=== PATIENT | female | born 1940 | race Caucasian/White ===

== ENCOUNTER 2018-09-30 14:22 | Inpatient (IN) | payer MEDICARE, BC ==
[2018-09-30 14:50] LABS: Hemoglobin 12.2 g/dL (12.0-16.0); Mean Corpuscular HGB CONC 33.1 g/dL (32.0-36.0); Mean Corpuscular Volume 87.7 fL (78.0-98.0); Mean Platelet Volume 8.9 fL (7.4-10.4); Platelet Count 258 thou/uL (130-400); RBC Distribution Width 12.2 % (11.5-14.5); White Blood Cell (WBC) Count 12.9 thou/uL (4.8-10.8)
[2018-09-30 15:02] LABS: ALT (SGPT) 31 U/L (8-55); AST (SGOT) 53 U/L (5-34); Albumin 3.6 g/dL (3.4-4.8); Alkaline Phosphatase 71 U/L (40-150); Anion Gap 17 mmol/L (10-20); BUN (Urea Nitrogen) 18 mg/dL (9.8-20.1); Bilirubin, Total 0.5 mg/dL (0.2-1.2); Calc. Creatinine Clearance 0 mL/min (70-130); Calcium 9.9 mg/dL (7.8-10.44); Carbon Dioxide 17 mmol/L (23-31); Chloride 106 mmol/L (98-107); Estimated GFR-MDRD 35; Globulin 4.4 g/dL (2.4-3.5); Glucose 140 mg/dL (83-110); Potassium 3.6 mmol/L (3.5-5.1); Sodium 136 mmol/L (136-145)
[2018-09-30 15:09] LABS: Bilirubin Small (Negative); Blood, Urine Large (Negative); Glucose, Urine (Dipstick) Negative (Negative); Leukocyte Trace (Negative); Nitrite Negative (Negative); Protein, Urine (Dipstick) > or equal to 300 mg/dL (Neg-Trace); Urobilinogen 0.2 mg/dL (0.2-1.0)
[2018-09-30 15:10] LABS: Clarity Hazy (Clear); Specific Gravity, Urine 1.026 (1.002-1.036)
[2018-09-30 15:17] LABS: Bacteria/HPF 2+ HPF (None Seen)
[2018-09-30 15:20] LABS: Band 4 % (5-11); Lymphocytes 4 % (21-51); MDiff Complete? YES; Monocytes 2 % (0-10); Neutrophil 90 % (42-75)
[2018-09-30 15:21] LABS: PLT Morphology Comment Appears Adequate; RBC Morphology Normal
--- NOTE | 2018-09-30 15:33 | RAD ---
CHEST 1 VIEW: Date: 09/30/18 INDICATION: Fever. COMPARISON: None. FINDINGS: Lungs are clear. Cardiomediastinal silhouette is within normal limits. No acute osseous abnormality i s evident. IMPRESSION: No acute abnormality. POS: [facility]
[2018-09-30] MEDS ORDERED: Cefepime 2 GM VIAL ONE (15:39)
[2018-09-30] MEDS ORDERED: Sodium Chloride 0.9% 100 ML ONE (15:39)
[2018-09-30] MEDS ORDERED: Acetaminophen 500 MG TAB ONE (16:59)
[2018-09-30 18:09] LABS: Lactic Acid 0.7 mmol/L (0.5-2.2)
[2018-09-30] MEDS ORDERED: Acetaminophen 325 MG TAB PO PRN (18:35)
[2018-09-30] MEDS: Sodium Chloride 0.9% 1,000 ML IV SCH (21:03)
[2018-10-01] MEDS ORDERED: Acetaminophen 325 MG TAB PO PRN (01:25)
[2018-10-01] MEDS ORDERED: Ondansetron ODT 4 MG TAB PO PRN (01:25)
[2018-10-01] MEDS ORDERED: Zolpidem Tartrate 5 MG TAB PO PRN (01:28)
[2018-10-01] MEDS ORDERED: Senokot S 8.6-50 MG TAB PO PRN (01:28)
[2018-10-01] MEDS ORDERED: Bisacodyl 5 MG TAB PO PRN (01:28)
[2018-10-01] MEDS ORDERED: Guaifenesin DM 100-10/5 ML UDCUP PO PRN (01:28)
[2018-10-01] MEDS ORDERED: Calcium Carbonate 500 MG ChewTAB PO PRN (01:28)
[2018-10-01] MEDS: Sodium Chloride 0.9% 1,000 ML IV SCH ×3 (02:38→13:11)
[2018-10-01] MEDS ORDERED: Cefepime 2 GM in Sodium Chloride 0.9% 100 ML IVPB SCH (03:30)
[2018-10-01] MEDS: Aztreonam 1 GM in Sodium Chloride 0.9% 100 ML IVPB SCH ×2 (04:25→13:25)
[2018-10-01 04:55] LABS: Anion Gap 15 mmol/L (10-20); BUN (Urea Nitrogen) 20 mg/dL (9.8-20.1); BUN/Creatinine Ratio 15.04; Calc. Creatinine Clearance 38 mL/min (70-130); Calcium 8.3 mg/dL (7.8-10.44); Carbon Dioxide 13 mmol/L (23-31); Chloride 113 mmol/L (98-107); Estimated GFR-MDRD 38; Glucose 93 mg/dL (83-110); Potassium 3.7 mmol/L (3.5-5.1); Sodium 137 mmol/L (136-145)
[2018-10-01 05:09] LABS: Phosphorus 1.6 mg/dL (2.3-4.7)
[2018-10-01 05:36] LABS: Band 26 % (5-11); Hemoglobin 11.4 g/dL (12.0-16.0); Lymphocytes 2 % (21-51); MDiff Complete? YES; Mean Corpuscular HGB CONC 32.5 g/dL (32.0-36.0); Mean Corpuscular Hemoglobin 30.8 pg (27.0-31.0); Mean Corpuscular Volume 94.8 fL (78.0-98.0); Mean Platelet Volume 9.6 fL (7.4-10.4); Metamyelocyte 2 % (0-0); Monocytes 2 % (0-10); Neutrophil 68 % (42-75); PLT Morphology Comment Appears Adequate; Platelet Count 235 thou/uL (130-400); RBC Distribution Width 12.6 % (11.5-14.5); RBC Morphology Normal; Vacuoles SLIGHT; White Blood Cell (WBC) Count 10.8 thou/uL (4.8-10.8)
[2018-10-01] MEDS ORDERED: Sodium Phosphate 15 MMOL in Sodium Chloride 0.9% 250 ML 250 ML IVPB SCH ×2 (06:00→06:45)
[2018-10-01] MEDS ORDERED: hydrALAZINE 20 MG/ML VIAL SLOW IVP PRN (06:27)
[2018-10-01] MEDS ORDERED: Famotidine/PF 20 mg/2ml Vial SLOW IVP SCH (09:00)
[2018-10-01] MEDS ORDERED: Non-Formulary Item 1 EACH (Desvenlafaxine Succinate [Pristiq] 100 MG) PO SCH (09:00)
[2018-10-01] MEDS: Fenofibrate Nanocrystallized 145 MG TAB PO SCH (09:12)
[2018-10-01] MEDS: Multivitamin W/ Minerals 1 TAB PO SCH (09:13)
[2018-10-01] MEDS: Venlafaxine HCl XR 150 MG CAP PO SCH (09:13)
[2018-10-01] MEDS: Famotidine 20 MG TAB PO SCH (09:13)
[2018-10-01] MEDS: Enoxaparin Sodium 40 MG/0.4 ML SYRINGE SC SCH (09:14)
[2018-10-01] MEDS: Calcium Carbonate 600 MG TAB PO SCH (09:17)
--- NOTE | 2018-10-01 12:53 | PDOC.PN ---
- Subjective Encounter Start Date: 10/01/18 Encounter Start Time: 07:40 Subjective: no abd pain or nausea or vomiting -: feels better, no chest pain - Objective Resuscitation Status - Order Detail: 10/01/18 01:28 Resuscitation Status Routine Resuscitation Status: FULL: Full Resuscitation MAR Reviewed: Yes Vital Signs & Weight: Vital Signs (12 hours) Temp Pulse Resp BP Pulse Ox 10/01/18 08:00 98 10/01/18 07:18 99.7 F H 102 H 16 139/68 95 10/01/18 04:00 100.6 F H 72 20 152/57 H 97 10/01/18 01:28 97 Weight Weight 155 lb 3.2 oz I&O: 09/30/18 10/01/18 10/02/18 06:59 06:59 06:59 Intake Total 1320 828 Output Total 2 Balance 1318 828 Result Diagrams: 10/01/18 03:53 10/01/18 03:53 Phys Exam - Physical Examination HEENT: PERRLA, moist MMs Neck: no JVD, supple Respiratory: no wheezing, no rales Cardiovascular: RRR, no significant murmur Gastrointestinal: soft, non-tender, positive bowel sounds Musculoskeletal: no edema, pulses present Neurological: non-focal, moves all 4 limbs Psychiatric: normal affect, A&O x 3 Dx/Plan (1) Sepsis Code(s): A41.9 - SEPSIS, UNSPECIFIED ORGANISM Status: Acute Qualifiers: Sepsis type: sepsis due to unspecified organism Qualified Code(s): A41.9 - Sepsis, unspecified organism (2) UTI (urinary tract infection) Status: Acute Qualifiers: Urinary tract infection type: acute cystitis Hematuria presence: without hematuria Qualified Code(s): N30.00 - Acute cystitis without hematuria (3) HTN (hypertension) Code(s): I10 - ESSENTIAL (PRIMARY) HYPERTENSION Status: Chronic Qualifiers: Hypertension type: essential hypertension Qualified Code(s): I10 - Essential (primary) hypertension (4) Dyslipidemia Code(s): E78.5 - HYPERLIPIDEMIA, UNSPECIFIED Status: Chronic - Plan hemostable -: on aztreonam, will obtain [facility] -: decrease iv fluids, encourage po intake -: on asp, tricor -: to amb as tolerated * . Review of Systems - Medications/Allergies Allergies/Adverse Reactions: Allergies Allergy/AdvReac Type Severity Reaction Status Date / Time Penicillins Allergy Verified 09/30/18 19:54 Medications: Current Medications Acetaminophen (Tylenol) 325 mg PO DAILYPRN PRN PRN Reason: Headache Last Admin: 10/01/18 05:56 Dose: 325 mg Aspirin (Aspirin Chewable) 81 mg PO DAILY [facility] Last Admin: 10/01/18 09:13 Dose: 81 mg Bisacodyl (Dulcolax) 10 mg PO DAILYPRN PRN PRN Reason: Constipation Calcium Carbonate (Caltrate) 600 mg PO DAILY [facility] Last Admin: 10/01/18 09:17 Dose: 600 mg Calcium Carbonate (Tums) 1,000 mg PO Q4H PRN PRN Reason: Heartburn or Indigestion Enoxaparin Sodium (Lovenox) 40 mg SC 09 [facility] Last Admin: 10/01/18 09:14 Dose: 40 mg Famotidine (Pepcid) 20 mg SLOW IVP DAILY [facility] Last Admin: 10/01/18 09:17 Dose: Not Given Famotidine (Pepcid) 20 mg PO DAILY [facility] Last Admin: 10/01/18 09:13 Dose: 20 mg Fenofibrate (Tricor) 145 mg PO DAILY [facility] Last Admin: 10/01/18 09:12 Dose: 145 mg Guaifenesin/Dextromethorphan (Robitussin Dm) 15 ml PO Q4H PRN PRN Reason: Cough Hydralazine HCl (Apresoline) 10 mg SLOW IVP Q4H PRN PRN Reason: SBP>160 Sodium Chloride (Normal Saline 0.9%) 1,000 mls @ 80 mls/hr IV .[id number] [facility] Last Admin: 10/01/18 04:25 Dose: 1,000 mls Aztreonam 1 gm/ Sodium (Chloride) 100 mls @ 200 mls/hr IVPB 0400,1200,2000 [facility] Last Admin: 10/01/18 04:25 Dose: 100 mls Iron/Minerals/Multivitamins (Theragran M) 1 tab PO DAILY [facility] Last Admin: 10/01/18 09:13 Dose: 1 tab Miscellaneous Medication (Pharmacy To Dose) 0 each IVPB PRN PRN PRN Reason: AZACTAM Pharmacy to Dose Ondansetron HCl (Zofran Odt) 4 mg PO Q6H PRN PRN Reason: Nausea Senna/Docusate Sodium (Senokot S) 2 tab PO BIDPRN PRN PRN Reason: Constipation Sodium Chloride (Flush - Normal Saline) 10 ml IVF Q12HR [facility] Last Admin: 10/01/18 09:17 Dose: Not Given Sodium Chloride (Flush - Normal Saline) 10 ml IVF PRN PRN PRN Reason: Saline Flush Venlafaxine HCl (Effexor Xr) 150 mg PO DAILY [facility] Last Admin: 10/01/18 09:13 Dose: 150 mg Zolpidem Tartrate (Ambien) 5 mg PO HSPRN PRN PRN Reason: Insomnia
[2018-10-01] MEDS ORDERED: Furosemide 40 MG/4 ML VIAL SLOW IVP SCH (13:15)
--- NOTE | 2018-10-01 13:56 | RAD ---
CHEST ONE VIEW: INDICATIONS: Shortness of breath. COMPARISON: 09/30/2018 FINDINGS: There is worsening interstitial prominence involving both lungs. Heart size is normal. No pleural e ffusion or pneumothorax is evident. No acute osseous abnormality is evident. IMPRESSION: Interval development of worsening interstitial prominence throughout both lungs. This can be seen wi th bronchiolitis or atypical infectious process. Recommend correlation. No consolidation, pleural e ffusion, or pneumothorax is evident. POS: [facility]
[2018-10-01] MEDS ORDERED: cefTRIAXone\\ROCEPHIN 1 GM in Sodium Chloride 0.9% 100 ML IVPB SCH (16:00)
[2018-10-01] MEDS ORDERED: Iopamidol 370 76% 100 ML VIAL ONE (16:41)
[2018-10-01] MEDS ORDERED: Azithromycin 500 MG in Sodium Chloride 0.9% 250 ML 250 ML IVPB SCH (17:00)
[2018-10-01] MEDS: Lorazepam 2 MG/ML VIAL SLOW IVP PRN (17:08)
[2018-10-01 19:02] LABS: Hemoglobin 10.9 g/dL (12.0-16.0); Mean Corpuscular HGB CONC 33.8 g/dL (32.0-36.0); Mean Corpuscular Hemoglobin 30.7 pg (27.0-31.0); Mean Corpuscular Volume 90.9 fL (78.0-98.0); Mean Platelet Volume 8.7 fL (7.4-10.4); Platelet Count 226 thou/uL (130-400); RBC Distribution Width 12.6 % (11.5-14.5); Red Blood Cell (RBC) Count 3.55 mill/uL (4.20-5.40); White Blood Cell (WBC) Count 9.2 thou/uL (4.8-10.8)
[2018-10-01] MEDS: Acetaminophen 1,000 MG in Premix Bag 1 BAG IVPB PRN (19:12)
[2018-10-01 19:16] LABS: Band 29 % (5-11); Lymphocytes 4 % (21-51); MDiff Complete? YES; Monocytes 1 % (0-10); Neutrophil 66 % (42-75); PLT Morphology Comment Appears Adequate; Polychromasia SLIGHT = 2-3 cells (100X) (0-2/hpf)
[2018-10-01 19:18] LABS: ALT (SGPT) 71 U/L (8-55); AST (SGOT) 139 U/L (5-34); Albumin 2.9 g/dL (3.4-4.8); Alkaline Phosphatase 80 U/L (40-150); Anion Gap 13 mmol/L (10-20); BUN (Urea Nitrogen) 17 mg/dL (9.8-20.1); Bilirubin, Total 0.3 mg/dL (0.2-1.2); Calc. Creatinine Clearance 38 mL/min (70-130); Calcium 8.2 mg/dL (7.8-10.44); Carbon Dioxide 19 mmol/L (23-31); Chloride 107 mmol/L (98-107); Estimated GFR-MDRD 38; Globulin 3.7 g/dL (2.4-3.5); Glucose 96 mg/dL (83-110); Protein, Total 6.6 g/dL (6.0-8.3); Sodium 136 mmol/L (136-145)
[2018-10-01 19:29] LABS: Potassium 2.5 mmol/L (3.5-5.1)
[2018-10-01] MEDS ORDERED: Magnesium 2 GM/50 ML 2 GM in Premix Bag 1 BAG IVPB PRN (19:58)
[2018-10-01] MEDS ORDERED: Vancomycin HCl 1 GM in Premix Bag 1 BAG IVPB SCH (20:00)
[2018-10-01] MEDS ORDERED: Potassium Chloride 40 MEQ in Sodium Chloride 0.9% 500 ML IVPB SCH (20:15)
[2018-10-01] MEDS ORDERED: Potassium Chloride 10 MEQ TAB PO SCH (20:15)
[2018-10-01] MEDS: Diltiazem 125 MG in Sodium Chloride 0.9% 100 ML IVPB SCH (20:24)
--- NOTE | 2018-10-01 21:37 | CT ---
CTA CHEST WITH CONTRAST: History: Irregular breathing, atrial fibrillation. Technique: Multiple contiguous axial images were obtained in a CTA of the chest with contrast perform ed with pulmonary embolism protocol. 3D oblique MIP reformats and direct coronal reformats were perfo rmed. FINDINGS: The pulmonary arteries are well opacified without filling defects to suggest pulmonary emboli. The he art is slightly enlarged without focal cardiac abnormality. No hilar or mediastinal lymphadenopathy i s seen. There is a small right pleural effusion. A trace left pleural effusion is seen. Adjacent atelectasis is seen bilaterally. No focal infiltrates or masses are seen in the lungs. No pneumothorax is seen. The chest wall soft tissues are unremarkable. Mild degenerative changes are seen in the spine. There is a hypodensity in the right lobe of the liver measuring 3.1 cm in size which may represent a cyst. IMPRESSION: 1. No evidence of pulmonary thromboembolism. 2. Right pleural effusion. POS: [facility]
[2018-10-01] MEDS: Cefepime 1 GM in Sodium Chloride 0.9% 100 ML IVPB SCH (21:52)
[2018-10-01] MEDS ORDERED: Digoxin 0.5 MG/2 ML AMP SLOW IVP SCH (22:00)
[2018-10-02] MEDS: Acetaminophen 1,000 MG in Premix Bag 1 BAG IVPB PRN (00:28)
[2018-10-02] MEDS ORDERED: Digoxin 0.5 MG/2 ML AMP SLOW IVP SCH ×2 (04:00→12:30)
[2018-10-02 06:02] LABS: ALT (SGPT) 81 U/L (8-55); AST (SGOT) 179 U/L (5-34); Alkaline Phosphatase 95 U/L (40-150); Anion Gap 16 mmol/L (10-20); BUN (Urea Nitrogen) 20 mg/dL (9.8-20.1); Bilirubin, Total 0.4 mg/dL (0.2-1.2); Calc. Creatinine Clearance 34 mL/min (70-130); Calcium 8.3 mg/dL (7.8-10.44); Carbon Dioxide 14 mmol/L (23-31); Chloride 110 mmol/L (98-107); Estimated GFR-MDRD 34; Globulin 3.7 g/dL (2.4-3.5); Magnesium 1.9 mg/dL (1.6-2.6); Potassium 3.3 mmol/L (3.5-5.1); Protein, Total 6.7 g/dL (6.0-8.3); Sodium 137 mmol/L (136-145)
[2018-10-02 06:07] LABS: Hemoglobin 11.9 g/dL (12.0-16.0); MDiff Complete? YES; Mean Corpuscular HGB CONC 30.8 g/dL (32.0-36.0); Mean Corpuscular Hemoglobin 28.8 pg (27.0-31.0); Mean Corpuscular Volume 93.5 fL (78.0-98.0); Mean Platelet Volume 9.5 fL (7.4-10.4); Platelet Count 227 thou/uL (130-400); Red Blood Cell (RBC) Count 4.14 mill/uL (4.20-5.40); White Blood Cell (WBC) Count 4.7 thou/uL (4.8-10.8)
[2018-10-02 06:08] LABS: Band 33 % (5-11); Monocytes 2 % (0-10); Neutrophil 65 % (42-75); PLT Morphology Comment Appears Adequate
[2018-10-02 06:09] LABS: Glucose 57 mg/dL (83-110)
[2018-10-02] MEDS ORDERED: Dextrose 50% Abboject 50 ML SYRINGE ONE (06:12)
--- NOTE | 2018-10-02 07:48 | HP ---
CHIEF COMPLAINT: Fever. HISTORY OF PRESENT ILLNESS: This is a 78-year-old female with past medical history of hyperlipidemia, who is presenting with fever. The patient was recently hospitalized two days ago at [facility]. During her admission, the patient was given IV antibiotics especially Levaquin and the patient was discharged yesterday to home; now the patient is presenting to our hospital with a fever of 102.1. Per the patient, she has been taking acetaminophen for fever control and the patient is also having associated symptoms of urinary urgency, episode of vomiting, malaise. The patient at this time denies any chills, dizziness, headaches, chest pain, palpitation, hematuria, dysuria, hematochezia, melena, constipation, diarrhea. The patient also denies shortness of breath or cough. REVIEW OF SYSTEMS: The patient reports fever, vomiting, urinary urgency. Otherwise, as documented in the HPI, all other systems were reviewed and are negative. PAST MEDICAL HISTORY: Hyperlipidemia. PAST SURGICAL HISTORY: Appendectomy and hysterectomy. FAMILY HISTORY: Reviewed and noncontributory. PSYCHIATRIC HISTORY: Anxiety. SOCIAL HISTORY: The patient denies any illicit drug use, any alcohol use, or any smoking history. ALLERGIES: SHE IS ALLERGIC TO PENICILLIN. CURRENT MEDICATIONS: 1. Pristiq 100 mg. 2. TriCor 145 mg. 3. Multivitamins. 4. Aspirin. 5. Levaquin 750. 6. Zofran. 7. Tylenol. PHYSICAL EXAMINATION: VITAL SIGNS: The patient's blood pressure is 146/58, pulse of 101, respiratory rate of 26, temperature of 100.1. GENERAL: The patient is lying in bed and does not appear to be in any distress. HEENT: Normocephalic and atraumatic. Pupils are equal, round, and reactive to light. Extraocular movements are intact. No scleral icterus. No conjunctival pallor. Mucous membranes are dry. NECK: Trachea is midline. No JVD. Full range of motion. LUNGS: Clear to auscultation bilaterally. No wheezes, no rales, no rhonchi appreciated. CARDIOVASCULAR: Positive S1 and S2. The patient is tachycardic. ABDOMEN: Soft, nontender, nondistended. EXTREMITIES: 5/5 upper extremity strength and good pulses bilaterally bilateral lower extremities. No edema noted. NEUROLOGIC: Cranial nerves 2 through 12 grossly intact. SKIN: Warm, dry, and intact. PSYCHIATRIC: Normal affect. DIAGNOSTIC STUDIES: EKG shows sinus tachycardia with a rate of 107. Chest x-ray, no acute cardiopulmonary process. The chest x-ray showed no acute abnormality. Labs; WBC is 12.9, hemoglobin of 12.2, hematocrit of 36.8, platelet count is 258, neutrophils of . Sodium is 136, potassium is 3.6, chloride is 106, carbon dioxide of 17, BUN is 18, creatinine is 1.46. GFR is 35. Glucose is . Lactic acid is 2.3. AST is 53, ALT is 31. Urinalysis is positive for leukocyte esterase. ASSESSMENT AND PLAN: This is a 78-year-old female, being admitted for: 1. Sepsis secondary to urinary tract infection. At this point, the patient has been started on antibiotics. We are going to continue the patient on antibiotics and IV fluids. The patient has been admitted to the [facility] since the patient is appearing. We will continue acetaminophen p.r.n. for fever and pain. We will follow up on cultures. 2. Acute kidney injury, most likely due to dehydration. The patient's creatinine is at this point 1.46. We will continue her on gentle hydration and we will follow up on morning BMP. 3. Lactic acidosis. We will continue the patient on IV fluids and we will trend lactic acid. 4. Deep venous thrombosis and gastrointestinal prophylaxis. Job ID: [id number]
[2018-10-02] MEDS: Famotidine 20 MG TAB PO SCH (08:28)
[2018-10-02] MEDS: Enoxaparin Sodium 40 MG/0.4 ML SYRINGE SC SCH (08:30)
[2018-10-02] MEDS: Cefepime 1 GM in Sodium Chloride 0.9% 100 ML IVPB SCH ×2 (08:37→23:15)
[2018-10-02] MEDS ORDERED: Metoprolol Tartrate 5 MG/5 ML VIAL IVP PRN (09:04)
[2018-10-02] MEDS ORDERED: Diltiazem 125 MG in Sodium Chloride 0.9% 100 ML IVPB SCH ×2 (09:15→12:18)
[2018-10-02] MEDS: Diltiazem 125 MG in Sodium Chloride 0.9% 100 ML IVPB SCH (09:53)
[2018-10-02] MEDS: Multivitamin W/ Minerals 1 TAB PO SCH (11:20)
[2018-10-02] MEDS: Venlafaxine HCl XR 150 MG CAP PO SCH (11:20)
[2018-10-02] MEDS: Fenofibrate Nanocrystallized 145 MG TAB PO SCH (11:20)
[2018-10-02] MEDS: Calcium Carbonate 600 MG TAB PO SCH (11:20)
[2018-10-02] MEDS ORDERED: Dextrose 5 % And 0.9 % NaCl 1,000 ML IV SCH (12:15)
--- NOTE | 2018-10-02 12:23 | PDOC.PN ---
- Subjective Encounter Start Date: 10/02/18 Encounter Start Time: 07:30 Subjective: no sob, is getting echo done -: has afib with rvr in the 130's now - Objective Resuscitation Status - Order Detail: 10/01/18 01:28 Resuscitation Status Routine Resuscitation Status: FULL: Full Resuscitation MAR Reviewed: Yes Vital Signs & Weight: Vital Signs (12 hours) Temp Pulse Resp BP Pulse Ox 10/02/18 11:04 98.7 F 140 H 16 102/71 97 10/02/18 08:00 98 10/02/18 07:29 99.5 F 138 H 20 119/54 L 98 10/02/18 06:14 139 H 10/02/18 03:51 98.8 F 153 H 24 H 112/57 L 99 10/02/18 02:03 99.7 F H 155 H 118/48 L 99 10/02/18 00:28 142 H Weight Weight 155 lb 3.2 oz I&O: 10/01/18 10/02/18 10/03/18 06:59 06:59 06:59 Intake Total 1320 2188 Output Total 2 Balance 1318 2188 Result Diagrams: 10/02/18 05:02 10/02/18 05:02 Additional Labs: Accuchecks 10/02/18 07:15 POC Glucose 71 Phys Exam - Physical Examination HEENT: PERRLA, sclera anicteric Neck: no JVD, supple Respiratory: no wheezing rales+ Cardiovascular: no significant murmur, irregular Gastrointestinal: soft, non-tender, positive bowel sounds Musculoskeletal: no edema, pulses present Neurological: non-focal, moves all 4 limbs Dx/Plan (1) Atrial fibrillation with RVR Code(s): I48.91 - UNSPECIFIED ATRIAL FIBRILLATION Status: Acute (2) Sepsis Code(s): A41.9 - SEPSIS, UNSPECIFIED ORGANISM Status: Acute Qualifiers: Sepsis type: sepsis due to unspecified organism Qualified Code(s): A41.9 - Sepsis, unspecified organism (3) UTI (urinary tract infection) Status: Acute Qualifiers: Urinary tract infection type: acute cystitis Hematuria presence: without hematuria Qualified Code(s): N30.00 - Acute cystitis without hematuria (4) HTN (hypertension) Code(s): I10 - ESSENTIAL (PRIMARY) HYPERTENSION Status: Chronic Qualifiers: Hypertension type: essential hypertension Qualified Code(s): I10 - Essential (primary) hypertension (5) Dyslipidemia Code(s): E78.5 - HYPERLIPIDEMIA, UNSPECIFIED Status: Chronic - Plan cardizem drip at 5mg/hr, lopressor prn -: iv hydration with dextrose for hypoglycemia -: on cefepime and vanc -: await cultures, to obtain urine cs results from physicians center -: cardio consult, await echo results * . Review of Systems - Medications/Allergies Allergies/Adverse Reactions: Allergies Allergy/AdvReac Type Severity Reaction Status Date / Time Penicillins Allergy Verified 09/30/18 19:54 Medications: Current Medications Acetaminophen (Tylenol) 325 mg PO DAILYPRN PRN PRN Reason: Headache Last Admin: 10/01/18 05:56 Dose: 325 mg Aspirin (Aspirin Chewable) 81 mg PO DAILY [facility] Last Admin: 10/02/18 08:28 Dose: 81 mg Bisacodyl (Dulcolax) 10 mg PO DAILYPRN PRN PRN Reason: Constipation Calcium Carbonate (Caltrate) 600 mg PO DAILY [facility] Last Admin: 10/02/18 11:20 Dose: Not Given Calcium Carbonate (Tums) 1,000 mg PO Q4H PRN PRN Reason: Heartburn or Indigestion Digoxin (Lanoxin) 0.25 mg SLOW IVP DAILY [facility] Digoxin (Lanoxin) 0.25 mg SLOW IVP NOW [facility] Stop: 10/02/18 14:30 Enoxaparin Sodium (Lovenox) 40 mg SC 0900 [facility] Last Admin: 10/02/18 08:30 Dose: 40 mg Famotidine (Pepcid) 20 mg PO DAILY [facility] Last Admin: 10/02/18 08:28 Dose: 20 mg Fenofibrate (Tricor) 145 mg PO DAILY [facility] Last Admin: 10/02/18 11:20 Dose: Not Given Guaifenesin/Dextromethorphan (Robitussin Dm) 15 ml PO Q4H PRN PRN Reason: Cough Hydralazine HCl (Apresoline) 10 mg SLOW IVP Q4H PRN PRN Reason: SBP>160 Acetaminophen 1,000 mg/ Device 100 mls @ 400 mls/hr IVPB Q6H PRN PRN Reason: Fever/Mild Pain Stop: 10/02/18 18:33 Last Admin: 10/02/18 00:28 Dose: 100 mls Cefepime HCl 1 gm/ Sodium (Chloride) 100 mls @ 200 mls/hr IVPB Q12HR [facility] Last Admin: 10/02/18 08:37 Dose: 100 mls Vancomycin HCl 1 gm/ Device 200 mls @ 200 mls/hr IVPB 2000 [facility] Last Admin: 10/01/18 20:39 Dose: 200 mls Magnesium Sulfate 2 gm/ Device 50 mls @ 100 mls/hr IVPB ONE PRN PRN Reason: Mg =<1.6 Stop: 10/08/18 19:59 Dextrose/Sodium Chloride (D5 0.9% Ns) 1,000 mls @ 75 mls/hr IV .[id number] [facility] Diltiazem HCl 125 mg/ Sodium (Chloride) 125 mls @ 7.5 mls/hr IVPB INF [facility]; Protocol Iron/Minerals/Multivitamins (Theragran M) 1 tab PO DAILY [facility] Last Admin: 10/02/18 11:20 Dose: Not Given Lorazepam (Ativan) 1 mg SLOW IVP Q4H PRN PRN Reason: Anxiety/Agitation Last Admin: 10/01/18 17:08 Dose: 1 mg Metoprolol Tartrate (Lopressor) 5 mg IVP Q6H PRN PRN Reason: for hr >140/min Last Admin: 10/02/18 09:24 Dose: 5 mg Miscellaneous Medication (Pharmacy To Dose) 0 each IVPB PRN PRN PRN Reason: AZACTAM Pharmacy to Dose Miscellaneous Medication (Pharmacy To Dose) 1 each IVPB PRN PRN PRN Reason: . Ondansetron HCl (Zofran Odt) 4 mg PO Q6H PRN PRN Reason: Nausea Senna/Docusate Sodium (Senokot S) 2 tab PO BIDPRN PRN PRN Reason: Constipation Sodium Chloride (Flush - Normal Saline) 10 ml IVF Q12HR [facility] Last Admin: 10/02/18 08:30 Dose: 10 ml Sodium Chloride (Flush - Normal Saline) 10 ml IVF PRN PRN PRN Reason: Saline Flush Last Admin: 10/02/18 09:26 Dose: 10 ml Venlafaxine HCl (Effexor Xr) 150 mg PO DAILY [facility] Last Admin: 10/02/18 11:20 Dose: Not Given Zolpidem Tartrate (Ambien) 5 mg PO HSPRN PRN PRN Reason: Insomnia
[2018-10-02] MEDS ORDERED: Iopamidol 370 76% 50 ML VIAL FS ONE (12:48)
[2018-10-02] MEDS ORDERED: Potassium Phosphate 30 MMOL in Sodium Chloride 0.9% 500 ML IVPB SCH (16:15)
--- NOTE | 2018-10-02 18:42 | CT ---
CT ABDOMEN NONCONTRAST CT PELVIS NONCONTRAST: (urolithiasis protocol) DATE: 10/02/2018 TIME: 5:34 p.m. HISTORY: A 78-year-old female with a urinary tract infection, metabolic acidosis, and abdominal pain. COMPARISON: None available. TECHNIQUE: IV injection of iodinated contrast media: none Oral contrast media: none FINDINGS: Other than for urolithiasis, the lack of IV and oral contrast limits the evaluation. There is a 13 x 8 x 7 mm calculus lodged at the left ureterovesical junction, causing mild-moderate d ilation of the left renal collecting system. There is also moderately severe fat stranding in the le ft renal sinus and around the left renal pelvis, consistent with either edema or extravasation of uri ne. There are additional multiple calculi in the left upper, mid, and lower pole calyces, including a clu ster of calculi in a left renal lower pole calyx. 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 There is IV contrast material in the dilated l eft renal collecting system, and a small amount in the contralateral right renal collecting system, f rom the CT angiogram of last night, 05/11/2018. There is no hydronephrosis in the right kidney. The re is IV contrast material in the urinary bladder. The bladder is otherwise unremarkable. Diverticu la at the sigmoid colon without acute diverticulitis. There are two low density lesions at the infer ior aspect of the right lobe of the liver. The largest of these two is at hepatic segment 5, measuri ng approximately 4 x 3.5 x 4 cm, with a density of 12 HU, probably a cyst. The other lesion is small er and located in hepatic segment 6. Cholecystectomy clips. No abdominal aortic aneurysm. No small bowel dilation. The spleen has a lobulated hilum and is mildly enlarged. No adrenal nodule. No gr oss pancreatic abnormality identified within the limits of a noncontrast scan. Small right pleural e ffusion. No small bowel dilation. No ascites or pneumoperitoneum. Absent uterus. IMPRESSION: 1. A 13 mm calculus lodged at the left ureteropelvic junction, causing left obstructive uropathy, wi th mild-moderate left hydronephrosis, and edema in the left renal sinus. 2. Small right pleural effusion. 3. Bilateral nephrolithiasis, left greater than right. 4. Status post cholecystectomy and hysterectomy. 5. Two lesions in the right lobe of the liver, probably hepatic cysts. 6. Mild splenomegaly. ALEXIS Limon POS: [facility]
[2018-10-02] MEDS ORDERED: Acetaminophen 325 MG TAB PO PRN (18:46)
[2018-10-02 19:15] LABS: INR-International Normal Ratio 1.7; Prothrombin Time 19.9 SEC (12.0-14.7)
[2018-10-02] MEDS ORDERED: Amiodarone 150 MG in Dextrose 5% in Water 100 ML IVPB SCH (19:15)
[2018-10-02] MEDS ORDERED: Amiodarone In Dextrose 200 ML IVPB SCH (19:15)
[2018-10-02 19:16] LABS: PTT 50.3 SEC (22.9-36.1)
[2018-10-02 19:18] LABS: Lactic Acid 1.3 mmol/L (0.5-2.2)
[2018-10-02 19:20] LABS: Vancomycin, Trough 9.2 ug/mL
[2018-10-02] MEDS ORDERED: Vancomycin HCl 1.5 GM in Sodium Chloride 0.9% 250 ML 300 ML IVPB SCH (20:00)
[2018-10-02] MEDS ORDERED: Sodium Bicarbonate 2.5 MEQ/5 ML VIAL ONE (20:07)
[2018-10-02] MEDS ORDERED: Fentanyl 100 MCG/2 ML VIAL ONE (20:07)
[2018-10-02] MEDS ORDERED: Midazolam HCl 2 mg/2 ml Vial ONE (20:07)
[2018-10-02] MEDS: Amiodarone 450 MG, Admixture Fee 1 EACH in Dextrose 5% in Water 250 ML IVPB SCH (20:18)
[2018-10-02] MEDS ORDERED: Enoxaparin Sodium 80 MG/0.8 ML SYRINGE SC SCH (21:00)
--- NOTE | 2018-10-02 21:24 | CON ---
DATE OF CONSULTATION: TYPE OF CONSULTATION: Cardiology. PRIMARY CARE PHYSICIAN: Dr. Aaron. PRIMARY SKI MOLDER: Dr. Mckeon. PRIMARY MANAGER MOBILITY: Dr. Jara. REFERRING PHYSICIAN: Dr. Pang. REASON FOR CARDIOLOGY CONSULT: New-onset atrial fibrillation, atrial fibrillation with RVR. HISTORY OF PRESENT ILLNESS: Mrs. Johnson is a very pleasant 78-year-old female with significant history of hyperlipidemia and history of UTI. On September 28, the patient started feeling not well. The patient saw the patient's primary care doctor the same day and the patient was admitted in the hospital over the night at the [facility] for possible urinary tract infection. The patient was discharged the next day on September 29. However, the patient did not feel well, so the patient's family took the patient to [facility] Tuesday night for further evaluation and treatment. The patient was at the [facility] and transferred to first floor and at that time, the patient started having heart rates up to 140, and she was found to have atrial fibrillation with RVR and at that time, the patient had no response. The patient's blood pressure was increased and the patient's heart rates increased also per patient's family. Today, prior to the episode, the patient's was at the bedside. He did not notice any other complaints such as chest pain, discomfort, shortness of breath, palpitations, flutter in her chest, dizziness, or lightheadedness. During initial Cardiology consult assessment, the patient denies any dizziness, lightheadedness, chest pain, discomfort, fluttering or palpitation in her chest or any other complaints, however, she is complaining of shortness of breath. According to family and patient's , she was never seen by a programming equipment operator or had a cardiac workup. However, the patient, according to , long time ago, she was told she has irregular heart rhythm. However, when she saw the programming equipment operator once, she was told she did not have any irregular heart rhythm. PAST MEDICAL HISTORY: Hyperlipidemia, mild rheumatoid arthritis, and anxiety. PAST SURGICAL HISTORY: Appendectomy, hysterectomy, bilateral cataract surgery, and right leg fracture. FAMILY HISTORY: Noncontributory at this moment. SOCIAL HISTORY: The patient is . The patient has 2 biological children, who lives well. The patient denies illicit drug or tobacco abuse. She drinks half glass of wine once a month. She used to walk 2 miles 5 times a week. She does not use a cane or walker. ALLERGIES: SHE IS ALLERGIC TO PENICILLIN. MEDICATIONS: Home mediations; 1. Tricor 145 mg once a day. 2. Zofran 4 mg once a day p.o. as needed. 3. Multivitamin one tablet once a day. 4. Levaquin 750 mg once a day. 5. Pristiq 100 mg once a day. 6. Calcium 600 mg once a day. 7. Aspirin 81 mg once a day. 8. Tylenol 325 mg as needed. REVIEW OF SYSTEMS: Negative unless otherwise mentioned in the history of present illness. According to , she was doing well prior to this event. PHYSICAL EXAMINATION: VITAL SIGNS: Blood pressure 102/71; pulses 130s to 140s, irregular, atrial flutter. At this moment, respiratory rate of 16, O2 sat 97% on room air, temperature 98.7. GENERAL: The patient is alert and oriented x4, mildly lethargic, breathing hard. HEENT: Normocephalic, atraumatic. Eyes, extraocular muscles are intact. ENT, mouth, oral, nasal mucosa moist without lesion. NECK: Supple. No JVD. Normal range of motion. LUNGS: Clear to auscultate. No wheezing, rales, or rhonchi noted. CARDIOVASCULAR: Irregularly irregular. No murmurs, heaves, or thrills noted. EXTREMITIES: 2+ pulses in the upper and lower extremities. No edema. ABDOMEN: Soft, nontender. No masses palpated. Bowel sounds are present. SKIN: Warm and dry. No lesions, bruise, or rash noted. MUSCULOSKELETAL: The patient able to move all extremities without difficulties. The patient did have claudication to the bilateral lower extremities. PSYCHIATRIC: Normal affect. NEUROLOGIC: Nonfocal. The patient is alert and oriented x4. IMAGING DATA: EKG; 12-led EKG at this floor today showing possible SVT or atrial flutter with RVR, right ventricular response with a heart rate of 132. CT scan of the chest shows no evidence of pulmonary thrombosis and small right pleural effusion and a trace left pleural effusion. ASSESSMENT AND PLAN: 1. New-onset atrial fibrillation/atrial flutter with rapid ventricular response. Although the patient is on diltiazem 7.5 mg an hour, one time dose of lopressor IV push and placement on digoxin, the patient's heart rates have been continuously in 130s to 140s. We request specimen processor to consult for further evaluation and treatment for unstable atrial flutter and atrial fibrillation. At this moment, the patient's blood pressure is stable. 2. Acute on chronic kidney disease. The patient's creatinine is slightly increased since yesterday. The patient on normal saline at 80 cc per hour. We would like to carefully watch the patient's fluid intake because the patient's BNP is more than 2000. 3. Acute onset of congestive heart failure. Again, the patient's BNP is more than 2000. The patient's echocardiogram was done today. She complains of shortness of breath. She received Lasix yesterday one-time dose. We would like to continue to monitor the patient's breathing and her cardiac function and we might like to start some diuretics. At this moment, the patient complains of shortness of breath, but denies edema in the lower extremities or distended abdomen. 4. Urinary tract infection. The patient on Levaquin and vancomycin which is managed by primary care doctor. 5. Hypertension. The patient's blood pressure is stable at this moment. We would like to continue to monitor. 6. Hyperlipidemia. At this moment, she is on Tricor. We would like to continue the current medication. Thank you for allowing the Cardiology Service to participate in the care of this patient. We will follow along with the patient's care team and make further recommendation as appropriate. Job ID: [id number]
--- NOTE | 2018-10-02 22:11 | CON ---
DATE OF CONSULTATION: 10/02/2018 TYPE OF CONSULTATION: Cardiology. INDICATIONS FOR CONSULTATION: A 78-year-old female with atrial fibrillation and flutter. Please refer to the notes dictated by my nurse practitioner, Katy Brown. HISTORY OF PRESENT ILLNESS: This is a very pleasant 78-year-old female, who apparently I saw back in 1996. She had a history of some aortic valve regurgitation at that time. This time, she appears to have only some mild mitral and tricuspid valve regurgitation. She was in [facility], hospitalized for urinary tract infection. She was placed on antibiotics. She then presented to the hospital recently with a temperature of 102.1. She was given more antibiotics. At this time, she was noted also to have rapid heart rate with atrial fibrillation and converted to atrial flutter. She has been given IV diltiazem, beta-blockers, and digoxin and still remains tachycardic with heart rates in the 120s. We will discuss her case with the peer support specialist. She may need to undergo either ablation of the flutter or she may need to go on electrical cardioversion if we are unable to control the heart rate. She is now developing also some congestive heart failure type symptoms, but some bilateral rales. PAST MEDICAL HISTORY: Please refer to the note that is dictated by the nurse practitioner. SOCIAL HISTORY: Please refer to the note that is dictated by the nurse practitioner. FAMILY HISTORY: Please refer to the note that is dictated by the nurse practitioner. ALLERGIES: PLEASE REFER TO THE NOTE THAT IS DICTATED BY THE NURSE PRACTITIONER. MEDICATIONS: Please refer to the note that is dictated by the nurse practitioner. PHYSICAL EXAMINATION: GENERAL: Reveals an elderly female. She is mildly short of breath at this time. She appears to be ill. She is fatigued. HEENT: Shows head to be normocephalic and atraumatic. NECK: She has a left carotid bruits noted. The right does not have bruits. She has normal pulses. CHEST: She has bibasilar rales noted. CARDIOVASCULAR: Reveals a tachycardia with a regular rhythm. She has a very soft systolic murmur at the upper sternal border in the apex. ABDOMEN: Soft and nontender. Positive bowel sounds are present. EXTREMITIES: Showed no clubbing or cyanosis. She had no significant edema. NEUROLOGIC: She appears to be intact for her age and illness. LABORATORY DATA: Shows some abnormalities with WBC of 4.7, previously was 12.9; hemoglobin 11.9; she has 33 bands, appear to be septic, her bands have increased; and her platelet count is 227,000. Blood sugars 57, potassium is 3.3, creatinine is 1.48, which is unchanged from her admission essentially. Her AST was 179 with an ALT of 81. Her BNP was elevated at 2104. She does have probable diastolic dysfunction causing this elevation of the BNP. She does not have any laboratory data back for the micro on the urinary tract infection. IMPRESSION: 1. Atrial fibrillation and atrial flutter with rapid ventricular response and congestive heart failure symptoms. If we are unable to control the heart rate within the next 12 to 24 hours, then I would suggest she undergo electrical cardioversion of the atrial flutter and hope we will maintain sinus rhythm. This will hopefully improve the cardiac output and will improve the liver function as well as renal function. At this time, we considered starting her on amiodarone, however, she is on antibiotics that may increase her QT-interval and this is not a good option, it is not a good option to start Multaq due to her congestive heart failure. At this time, we will need to continue the medications and hopefully control the rate and if she is not in better heart rate tomorrow, then she will need to undergo cardioversion of the atrial fibrillation. 2. Urinary tract infection. She is on antibiotics. We will continue this unless we need to switch over to a different antibiotic if we need to use amiodarone. 3. History of hypertension. This is on good control at this time. 4. Dyslipidemia. We will continue her present medications. At this time, her cardiac status certainly is not the best. Hopefully, we will control the rate and if necessary, she will undergo electrical cardioversion tomorrow if we cannot control the heart rate with the medications. Job ID: [id number]
--- NOTE | 2018-10-02 22:12 | CT ---
CT GUIDED LEFT PERCUTANEOUS NEPHROSTOMY: DATE: 10/02/2018 TIME: 9:30 p.m. HISTORY: A 78-year-old female with sepsis due to obstructive uropathy due to calculus obstructing left renal U PJ. TECHNIQUE: Signed informed consent obtained. Patient placed prone on CT table. The skin of the left flank was prepared and draped in the usual sterile fashion, and a 25 gauge needle was used to apply buffered Li docaine superficially and deeply, reaching the renal cortical surface. The entire procedure was perf ormed under step CT guidance. A 7 cm, 5 Dominican Yueh catheter with stylet was placed in tandem with t he 25 gauge needle, into a dilated upper pole renal collecting system. The 25 gauge needle and the s tylet were removed. A total of 10 mL of opaque pus was aspirated in a 10 mL syringe and sent to the laboratory. Next, a short, stiff, 0.035 inch, 75 cm Amplatz wire was placed through the Yueh cathete r and coiled in the dilated renal collecting system. The Yueh catheter was exchanged over the guidew brooke for an 8 Dominican dilator. The 8 Dominican dilator was exchanged over the guidewire for an 8 Dominican n ephrostomy tube. The stylet of the nephrostomy tube and the guidewire were removed. The nephrostomy catheter loop was formed and locked into place. The catheter was sutured in place at the skin. Gerson ssings were applied. The patient tolerated the procedure well. No complications. IMPRESSION: 1. Successful CT guided percutaneous nephrostomy of the left kidney. 2. 10 mL of purulent fluid from left renal collecting system sent to laboratory for culture and sens itivity. 2. An 8 Dominican pigtail drainage catheter left to external drainage. POS: [facility]
--- NOTE | 2018-10-02 22:14 | RAD ---
RADIOGRAPH ABDOMEN ONE VIEW: DATE: 10/02/2018 TIME: 8:55 p.m. HISTORY: A 78-year-old female status post nephrostomy tube placement. FINDINGS: There is a left-sided percutaneous nephrostomy tube with a pigtail loop at the L2-L3 level, centered approximately 2.5 cm superior to the approximately 1.2 cm calculus lodged at the left UPJ. Additiona l calculi are demonstrated at the lower pole of the left kidney. IMPRESSION: 1. Left-sided percutaneous nephrostomy tube. 2. Left obstructive uropathy due to 12 mm calculus at ureteropelvic junction. 3. Left nephrolithiasis (calculus of kidney). POS: [facility]
[2018-10-02 22:28] LABS: BF Color Pink; Clarity Cloudy/Turbid (Clear)
[2018-10-02 22:29] LABS: Tube # EDTA
[2018-10-02 22:30] LABS: RBC Count-Automated 685000 /cumm; WBC/NonHematic-Auto 224 /cumm
--- NOTE | 2018-10-02 22:59 | CON ---
DATE OF CONSULTATION: 10/02/2018 SERVICE: Pulmonary Medicine. REASON FOR CONSULT: [facility] patient. HISTORY OF PRESENT ILLNESS: The patient is a 78-year-old white female with past medical history significant for essentially nothing. She was in her usual state of health when she came down with an illness with fever profile. She was put on Levaquin and subsequently discharged home. Ultimately, over the next two days, she got increasingly weak, and presented back to the emergency department. She was put on broad-spectrum antibiotics and tucked into the hospital. Overnight, she went into atrial fibrillation with RVR and was brought down to the [facility], where a diltiazem drip was initiated. Her heart rate is still currently under poor control. She denies any fevers or chills. She does not have any shortness of breath or chest discomfort. She has not been coughing or generating any sputum. PAST MEDICAL HISTORY: 1. Hypertension. 2. Dyslipidemia. 3. Major depressive disorder. PAST SURGICAL HISTORY: 1. Appendectomy. 2. Hysterectomy. FAMILY HISTORY: Noncontributory. SOCIAL HISTORY: Negative for alcohol, tobacco, or illicit drug use. She has no exposure to chemicals dust, asbestos, or tuberculosis. ALLERGIES: PENICILLIN. MEDICATIONS: List of her inpatient medications was reviewed. A couple of small updates were made. REVIEW OF SYSTEMS: General, head, ears, eyes, nose, throat, cardiovascular, respiratory, genitourinary, musculoskeletal, neurologic, and skin are negative except as mentioned in the HPI. PHYSICAL EXAMINATION: VITAL SIGNS: Afebrile, pulse 132, blood pressure 103/51, respirations 20, saturations 99% on room air. GENERAL: The patient is awake and alert, in no apparent distress. HEENT: Normocephalic and atraumatic. Sclerae white. Conjunctivae pink. Oral mucosa is very dry. No lesions are appreciated. LUNGS: Excellent air entry without any prolonged expiratory phase, wheezing, or crackles. HEART: Normal rate and regular. ABDOMEN: Soft, nontender, and nondistended. Bowel sounds are positive. MUSCULOSKELETAL: No cyanosis or clubbing. There is no pitting in the bilateral lower extremities. She has skin tenting throughout. : No Rodriguez catheter. NEUROLOGIC: Grossly nonfocal. LABORATORY DATA: WBC is improved at 4.7, hemoglobin 11.9, platelets 227,000. Band count has increased to 33%. Potassium 3.3, creatinine 1.48 and up trending, glucose 57, has improved to 71. AST and ALT are trending upward, BNP 2100. Urinalysis is positive for proteinuria, ketones, blood. There was significant amount of squamous epithelial cells as well as a little bit of bacteria. Respiratory virus panel, blood cultures x2, and urine culture all unremarkable. Influenza A and B, negative. IMAGING: CTA of the chest demonstrates no evidence of a pulmonary embolism. There is a bilateral pleural effusion. The right side is ever so slightly larger than the left. The right ventricle is generous. The septum is indeed out. There is no significant reflux of contrast into the inferior vena cava. The left atrium is overfilled. ASSESSMENT: 1. Chronic diastolic heart failure. 2. Severe sepsis. 3. Acute kidney injury, suspected. 4. Elevated BNP (though she is clinically dehydrated). 5. Pleural effusion, bilateral. 6. Atrial fibrillation with rapid ventricular rate. DISCUSSION AND PLAN: We will continue our empiric antibiotics. I will replace the potassium and phosphorus. I will recheck both of those levels tomorrow morning. I am going to interrupt our Lasix therapy as clinically, the patient appears to be a little dehydrated. We will continue working on weight control. Pulmonary Critical Care will continue to follow along. 70 minutes have been devoted to this patient in various activities. I personally reviewed all imaging studies and laboratory data noted within this document. For fifty percent of this time, I was interacting with the patient at the bedside or coordinating care with the care team. For the remainder of the time I was immediately available to the patient in the hospital unit. Job ID: [id number] [facility]
--- NOTE | 2018-10-02 22:59 | CON ---
DATE OF CONSULTATION: ELECTROPHYSIOLOGY CONSULTATION REASON FOR CONSULTATION: Atrial arrhythmias with rapid ventricular response. HISTORY OF PRESENT ILLNESS: Ms. Polk is a very pleasant 78-year-old woman with the past medical history of hyperlipidemia as well as a remote history of atrial fibrillation, 20 years in the past. She was recently hospitalized at the [facility] for urinary tract infection and was given IV antibiotics and discharged on Levaquin. She presented to [facility] 2 days prior with a fever of 102.1 and some associated symptoms of urinary urgency, vomiting, malaise with her UTI. She was admitted to hospital for continued treatment when she became acidotic and also went into atrial fibrillation with RVR. She was transferred to the step-down ICU for continued monitoring and treatment. She was placed on the diltiazem drip for rate control in addition to digoxin. She was having some QTc prolongation on her antibiotic combo. This morning, her antibiotic therapy was revised and she is currently on cefepime as well as vancomycin. An echocardiogram has been performed, but the report is not available as of yet. EKG showed variable atrial fibrillation and occasionally atrial flutter with ventricular rates varying between 120 and 145 beats per minute. She is also having shortness of breath with minimal conversation and somewhat at rest. She is tachypneic. She is alert and oriented. She is reporting that she feels fairly well. She denies any heart racing, palpitation, chest pain, pressure, syncope, near syncope, stroke or stroke-like symptoms. REVIEW OF SYSTEMS: A 12-point review of systems was conducted and is negative except that listed above in the HPI. PAST MEDICAL HISTORY: 1. Hyperlipidemia. 2. Atrial fibrillation in 1996. 3. Per the patient, valvular disease, though no records are available supporting this. PAST SURGICAL HISTORY: Appendectomy and hysterectomy. FAMILY HISTORY: Negative for sudden cardiac or early onset coronary artery disease. SOCIAL HISTORY: Negative for illicit drug use, tobacco, or alcohol. She was for a long time and her . 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 ALLERGIES: PENICILLIN. HOME MEDICATIONS: Include; 1. Pristiq 100 mg. 2. Tricor 145 mg. 3. Multivitamin. 4. Aspirin. 5. Tylenol. 6. Antibiotics, was on Levaquin and azithromycin, but were stopped as detailed above. PHYSICAL EXAMINATION: VITAL SIGNS: Most recent vital signs; temperature 98.7, heart rate 140, oxygen is 97% on room air, respirations are 22, and blood pressure 102/71. GENERAL: This is an elderly petite woman, but in no apparent distress. She is tachypneic and looks somewhat short of breath at rest and with minimal conversation. Speech is clear. Affect is appropriate. She is resting comfortably in bed. NECK: Supple without jugular venous distention. Thyroid is not palpable. HEART: Heart rate is irregularly irregular and rapid. PMI is nondisplaced. LUNGS: Clear to auscultation bilaterally without wheezes, crackles, or rhonchi. As mentioned, slightly tachypneic. ABDOMEN: Soft, nontender without palpable masses. Hepatojugular refluxes negative. Positive bowel sounds noted throughout. EXTREMITIES: Warm and dry to touch without clubbing, cyanosis, or edema. NEUROLOGIC: Grossly intact and nonfocal. Cranial nerves 2 through 12 . DATABASE: Potassium 3.3, creatinine 1.3 to 1.48, and magnesium 1.9. AST and ALT elevated at 179 and 81 respectively and climbing. BNP 2104. Hematology; WBC 4.7, hemoglobin 11.9, platelet count is 227, bands are elevated at 33. Chest x-ray, no consolidation, pleural effusions, or pneumothorax, but interval development of worsening interstitial prominence throughout both lungs, which could represent bronchiolitis or atypical infectious process. Telemetry and EKG initially reflect sinus rhythm and sinus tachycardia, but within the past 2 days, have transitioned to atrial fibrillation and occasionally atrial flutter with RVR. QT is slightly prolonged at 320 milliseconds. IMPRESSION: 1. New onset of persistent atrial fibrillation/atrial flutter with RVR in the setting of sepsis. 2. Urosepsis, previously on Levaquin and azithromycin, currently on cefepime and vancomycin. 3. Increased BNP/congestive heart failure, overload with normal left ventricular ejection fraction. 4. Chronic renal insufficiency with the creatinine of 1.3 to 1.48. 5. Elevated LFTs, likely secondary to liver congestion. PLAN: 1. Continue diltiazem and digoxin for rate control and check a dig level in the morning with labs. 2. Cardioversion in the a.m. with Dr. Mckeon (ideally, this could be performed within 48 hours of her onset of atrial fibrillation and no DAVIS will be required). 3. Spoke with the hospitalist team about stopping the QT prolonging antibiotics, which was already performed this morning and consider amiodarone loading if cardioversion is unsuccessful tomorrow and 24 hours off the QT prolonging agents. 4. Agree with the plan for Lovenox. 5. Recommend continued medical stabilization. Correct electrolytes if potassium greater than 4, magnesium over 2. Correct her acid-base balance and also help with her fluid level management. Hopefully, she can be optimized a bit more before the cardioversion tomorrow to increase the chance of success, but she will maintain sinus rhythm. If early recurrence of atrial fibrillation is seen following the cardioversion, we will likely load her on amiodarone since her QT prolonging antibiotic agents have been discontinued. Job ID: [id number]
[2018-10-03 01:11] LABS: BF Segmented Neutrophils 27 %; Cell Count Non Hematic 13 %; Lymphocytes 60 %
[2018-10-03] MEDS: Lorazepam 2 MG/ML VIAL SLOW IVP PRN (02:32)
[2018-10-03] MEDS: Dextrose 5 %-0.45 % NaCl 1,000 ML IV SCH ×2 (04:14→04:15)
[2018-10-03] MEDS: Amiodarone 450 MG, Admixture Fee 1 EACH in Dextrose 5% in Water 250 ML IVPB SCH (05:55)
[2018-10-03 06:39] LABS: Digoxin 1.53 ng/mL (0.8-2.0)
[2018-10-03 07:42] LABS: Hemoglobin 8.5 g/dL (12.0-16.0); Mean Corpuscular HGB CONC 32.5 g/dL (32.0-36.0); Mean Corpuscular Volume 92.2 fL (78.0-98.0); Mean Platelet Volume 10.1 fL (7.4-10.4); Platelet Count 237 thou/uL (130-400); RBC Distribution Width 13.1 % (11.5-14.5); Red Blood Cell (RBC) Count 2.85 mill/uL (4.20-5.40); White Blood Cell (WBC) Count 15.9 thou/uL (4.8-10.8)
[2018-10-03 07:49] LABS: Anion Gap 14 mmol/L (10-20); BUN (Urea Nitrogen) 26 mg/dL (9.8-20.1); Calc. Creatinine Clearance 34 mL/min (70-130); Calcium 7.4 mg/dL (7.8-10.44); Carbon Dioxide 15 mmol/L (23-31); Chloride 116 mmol/L (98-107); Estimated GFR-MDRD 34; Glucose 106 mg/dL (83-110); Sodium 142 mmol/L (136-145)
[2018-10-03] MEDS ORDERED: PROPOFOL 20 ML ONE ×2 (07:57)
[2018-10-03 08:05] LABS: Potassium 2.8 mmol/L (3.5-5.1)
[2018-10-03] MEDS ORDERED: PHENYLEPHRINE-NS 100 MCG/ML 10 ML SYRINGE ONE ×4 (08:37→16:15)
[2018-10-03] MEDS ORDERED: Digoxin 0.5 MG/2 ML AMP SLOW IVP SCH (09:00)
[2018-10-03 09:02] LABS: Band 59 % (5-11); Lymphocytes 7 % (21-51); MDiff Complete? YES; Monocytes 6 % (0-10); Neutrophil 28 % (42-75); PLT Morphology Comment Appears Adequate; Polychromasia SLIGHT = 2-3 cells (100X) (0-2/hpf); Vacuoles SLIGHT
[2018-10-03] MEDS ORDERED: Potassium Chloride 20 MEQ TAB PO SCH ×2 (10:00→14:00)
[2018-10-03] MEDS: Cefepime 1 GM in Sodium Chloride 0.9% 100 ML IVPB SCH (10:57)
[2018-10-03] MEDS: Venlafaxine HCl XR 150 MG CAP PO SCH (10:59)
[2018-10-03] MEDS: Multivitamin W/ Minerals 1 TAB PO SCH (10:59)
[2018-10-03] MEDS: Famotidine 20 MG TAB PO SCH (10:59)
[2018-10-03] MEDS: Fenofibrate Nanocrystallized 145 MG TAB PO SCH (10:59)
[2018-10-03] MEDS: Calcium Carbonate 600 MG TAB PO SCH (11:02)
--- NOTE | 2018-10-03 11:31 | PDOC.CTH ---
Cardiology Progress Note - Subjective EP progress note: Patient seen and evaluated. No new cardiac concerns or complaints. Weakness continues. She is tired today. Had successful CV this AM with Dr Mckeon. Amiodarone gtt was started last night for her worsening rate control. Her breathing is easier today. She also had nephrostomy tube and barclay placed last night. She is not having any pain - Objective Vital Signs Temp Pulse Resp BP Pulse Ox 10/03/18 09:36 98.7 F 88 22 H 110/58 L 100 10/03/18 07:39 98.5 F 138 H 29 H 106/68 98 10/03/18 06:25 98.0 F 10/03/18 04:00 100.2 F H 139 H 34 H 116/71 95 10/03/18 02:22 102.5 F H 10/03/18 01:30 96 10/03/18 00:03 134 H 25 H 152/79 H 96 10/02/18 23:41 99.0 F Weight 155 lb 3.2 oz 10/02/18 10/03/18 10/04/18 06:59 06:59 06:59 Intake Total 2188 2680 Output Total 825 Balance 2188 1855 - Physical Examination General/Neuro: alert & oriented x3, NAD Neck: carotid US brisk, no JVD present Lungs: CTA, unlabored respirations Heart: PMI normal, RRR Abdomen: NT/ND, soft - Telemetry Telemetry Rhythm: SR - Labs Result Diagrams: 10/03/18 05:54 10/03/18 05:54 - Assessment/Plan 1. Atrial fibrillation and flutter with RVR -on amiodarone gtt starting last night - s/p DCCV this AM, now in SR 2. Nephrolithiasis -L>R -s/p left nephrostomy tube and barclay placement 3. QTc prolongation -antibiotics adjusted. ~450msec today, stable on amiodarone 4. A/C diastolic heart failure 5. Renal insufficiency 6. Elevated liver enzymes -[address]. - will need continued monitoring of LFTs while on amiodarone 7. CHADS2-VASC: 3 (age, female gender) - lovenox
[2018-10-03] MEDS ORDERED: Lactated Ringer's 500 ML IV SCH (13:00)
--- NOTE | 2018-10-03 13:35 | PRG ---
DATE OF SERVICE: 10/03/2018 SERVICE: Pulmonary Medicine. INTERVAL HISTORY: Yesterday, the patient went down for a CT of the abdomen and pelvis. The obstructing stone was relieved. Ultimately, significant purulent fluid and bloody fluid were drained from the percutaneous nephrostomy tube, as well as from the urine. Overnight, she did lose a significant amount of blood. Originally, it was ever blood that was coming out. Later on, it became more serosanguineous. Ultimately, the patient appears a little bit more toxic today. She cannot provide me any additional elements of the history. PHYSICAL EXAMINATION: VITAL SIGNS: Afebrile, pulse 81, blood pressure 99/51, respirations 28, and saturation 99% on room air. GENERAL: The patient is awake and alert, in no apparent distress. LUNGS: Decent air entry. There are no prolonged expiratory phase, wheezing, rhonchi, or crackles present. HEART: Normal rate and regular. ABDOMEN: Soft, nontender, and nondistended. Bowel sounds are positive. MUSCULOSKELETAL: No cyanosis or clubbing. There is no pitting in the bilateral lower extremities. NEUROLOGIC: Grossly nonfocal. LABORATORY DATA: WBC 15.9, hemoglobin 8.5, and platelets 237,000. Her band count has increased to 59%. INR 1.7. Potassium 2.8, chloride 116, sodium 142, and creatinine 1.48. This is roughly stable. Basic metabolic profile is otherwise unremarkable. Blood cultures growing gram-positive darrius in 1/2. Urine culture is negative, influenza is negative, respiratory virus panel is negative, and the bacterial culture from the percutaneous nephrostomy tube is currently negative. There was moderate amount of gram-positive beaded branching rods and few gram-variable rods noted. IMAGING STUDIES: Echocardiogram demonstrates normal ejection fraction. ASSESSMENT: 1. Chronic diastolic heart failure, currently dehydrated. 2. Acute kidney injury, suspected. 3. Severe sepsis. 4. Nephrolithiasis with obstructing stone on the left, status post percutaneous nephrostomy drain. 5. Atrial fibrillation s/p cardioversion, returned to normal sinus rhythm. 6. Acute blood loss anemia. DISCUSSION AND PLAN: We will continue the empiric antibiotics. Zosyn will be interrupted. We will continue the gram-negative coverage. We will, once again, replace potassium. I will continue her half-normal saline for the next 24 hours. The patient has developed a new acute blood loss anemia, for which we will provide her with 2 units of blood. We will continue to monitor hemoglobins through time. If she has a significant drop in hemoglobin, repeat CT of the abdomen and pelvis may be considered looking for accumulation of large hematoma. Job ID: [id number] [facility]
--- NOTE | 2018-10-03 13:55 | OP ---
CARDIOLOGY PROCEDURE NOTE: Date: 10/03/18 PROCEDURE: Electrical cardioversion. INDICATION FOR PROCEDURE: 78-year-old female who had atrial fibrillation and rapid ventricular response, and converted to atria l flutter where rapid ventricular response medical management was attempted but were unable to contro l the heart rate. She was advised to undergo electrical cardioversion of her atrial flutter. DETAILS OF PROCEDURE: The patient was taken to the recovery area, where she underwent short-acting propofol. With one attem pt at 50 joules, she was successfully converted back to a normal sinus rhythm. No difficulties or com plications were encountered.
[2018-10-03 15:36] LABS: Hemoglobin 7.4 g/dL (12.0-16.0)
--- NOTE | 2018-10-03 16:01 | PDOC.PN ---
- Subjective Encounter Start Date: 10/03/18 Encounter Start Time: 11:00 Subjective: is lethargic post cardioversion this am, ?still waking up from anesthesia - Objective Resuscitation Status - Order Detail: 10/01/18 01:28 Resuscitation Status Routine Resuscitation Status: FULL: Full Resuscitation MAR Reviewed: Yes Vital Signs & Weight: Vital Signs (12 hours) Temp Pulse Resp BP Pulse Ox 10/03/18 15:36 97.6 F 85 26 H 119/56 L 98 10/03/18 11:41 96.6 F L 81 28 H 99/51 L 99 10/03/18 09:36 98.7 F 88 22 H 110/58 L 100 10/03/18 07:39 98.5 F 138 H 29 H 106/68 98 10/03/18 06:25 98.0 F 10/03/18 04:00 100.2 F H 139 H 34 H 116/71 95 Weight Weight 155 lb 3.2 oz I&O: 10/02/18 10/03/18 10/04/18 06:59 06:59 06:59 Intake Total 2188 2680 Output Total 825 Balance 2188 1855 Result Diagrams: 10/03/18 15:26 10/03/18 05:54 Phys Exam - Physical Examination HEENT: PERRLA, sclera anicteric dry mucosa Neck: no JVD, supple Respiratory: no wheezing, no rales Cardiovascular: RRR, no significant murmur Gastrointestinal: soft, non-tender, positive bowel sounds percut neph tube not much drainage almost dry Musculoskeletal: no edema, pulses present Neurological: non-focal, moves all 4 limbs Dx/Plan (1) Atrial fibrillation with RVR Code(s): I48.91 - UNSPECIFIED ATRIAL FIBRILLATION Status: Acute Comment: in sinus post cardioversion this am (2) Sepsis Code(s): A41.9 - SEPSIS, UNSPECIFIED ORGANISM Status: Acute Qualifiers: Sepsis type: sepsis due to unspecified organism Qualified Code(s): A41.9 - Sepsis, unspecified organism (3) UTI (urinary tract infection) Status: Acute Qualifiers: Urinary tract infection type: acute cystitis Hematuria presence: without hematuria Qualified Code(s): N30.00 - Acute cystitis without hematuria (4) HTN (hypertension) Code(s): I10 - ESSENTIAL (PRIMARY) HYPERTENSION Status: Chronic Qualifiers: Hypertension type: essential hypertension Qualified Code(s): I10 - Essential (primary) hypertension (5) Dyslipidemia Code(s): E78.5 - HYPERLIPIDEMIA, UNSPECIFIED Status: Chronic (6) Acute blood loss anemia Code(s): D62 - ACUTE POSTHEMORRHAGIC ANEMIA Status: Acute (7) Hydronephrosis of left kidney Code(s): N13.30 - UNSPECIFIED HYDRONEPHROSIS Status: Acute Comment: s/p perc nephrostomy tube 10/02/2018 (8) Bilateral nephrolithiasis Code(s): N20.0 - CALCULUS OF KIDNEY Status: Acute (9) Acute encephalopathy Code(s): G93.40 - ENCEPHALOPATHY, UNSPECIFIED Status: Acute (10) Bacteremia Code(s): R78.81 - BACTEREMIA Status: Acute - Plan will transfuse 2 units in view of further loss -: repeat CT stone protocol to see for any bleed -: is on cefepime and vanc, cultures are pending -: ID consultation, gentle iv hydration -: is on amiodarone. * . D/w at bedside and over telephone with her daughter [phone] and gave full updates and current plan. She has another daughter by Name [phone], will update her. Code status revisited today, she is full code Review of Systems - Medications/Allergies Allergies/Adverse Reactions: Allergies Allergy/AdvReac Type Severity Reaction Status Date / Time Penicillins Allergy Verified 09/30/18 19:54 Medications: Current Medications Acetaminophen (Tylenol) 325 mg PO DAILYPRN PRN PRN Reason: Headache Last Admin: 10/01/18 05:56 Dose: 325 mg Acetaminophen (Tylenol) 650 mg PO Q6H PRN PRN Reason: fever/pain Last Admin: 10/03/18 02:24 Dose: 650 mg Amiodarone HCl (Cordarone) 200 mg PO 0900,1500,2300 SONG Bisacodyl (Dulcolax) 10 mg PO DAILYPRN PRN PRN Reason: Constipation Calcium Carbonate (Caltrate) 600 mg PO DAILY SONG Last Admin: 10/03/18 11:02 Dose: 600 mg Calcium Carbonate (Tums) 1,000 mg PO Q4H PRN PRN Reason: Heartburn or Indigestion Famotidine (Pepcid) 20 mg PO DAILY [facility] Last Admin: 10/03/18 10:59 Dose: 20 mg Fenofibrate (Tricor) 145 mg PO DAILY [facility] Last Admin: 10/03/18 10:59 Dose: 145 mg Hydralazine HCl (Apresoline) 10 mg SLOW IVP Q4H PRN PRN Reason: SBP>160 Cefepime HCl 1 gm/ Sodium (Chloride) 100 mls @ 200 mls/hr IVPB Q12HR [facility] Last Admin: 10/03/18 10:57 Dose: 100 mls Amiodarone HCl 450 mg/Miscellaneous Medication 1 each/ Dextrose/Water 259 mls @ 0 mls/hr IVPB INF [facility]; Protocol Stop: 10/03/18 23:00 Last Admin: 10/03/18 05:55 Dose: 259 mls Potassium Chloride/Dextrose/Sod Cl (D5 1/2 Ns W/10 Meq Kcl) 1,000 ml in 1,000 mls @ 75 mls/hr IV .[id number] [facility] Iron/Minerals/Multivitamins (Theragran M) 1 tab PO DAILY [facility] Last Admin: 10/03/18 10:59 Dose: 1 tab Miscellaneous Medication (Pharmacy To Dose) 0 each IVPB PRN PRN PRN Reason: AZACTAM Pharmacy to Dose Miscellaneous Medication (Pharmacy To Dose) 1 each IVPB PRN PRN PRN Reason: . Ondansetron HCl (Zofran Odt) 4 mg PO Q6H PRN PRN Reason: Nausea Potassium Chloride (K-Dur) 20 meq PO QA-[facility] Senna/Docusate Sodium (Senokot S) 2 tab PO BIDPRN PRN PRN Reason: Constipation Sodium Chloride (Flush - Normal Saline) 10 ml IVF Q12HR [facility] Last Admin: 10/03/18 11:00 Dose: Not Given Sodium Chloride (Flush - Normal Saline) 10 ml IVF PRN PRN PRN Reason: Saline Flush Last Admin: 10/02/18 09:26 Dose: 10 ml Sodium Chloride (Flush - Normal Saline) 10 ml IVF PRN PRN PRN Reason: Saline Flush Venlafaxine HCl (Effexor Xr) 150 mg PO DAILY [facility] Last Admin: 10/03/18 10:59 Dose: 150 mg Zolpidem Tartrate (Ambien) 5 mg PO HSPRN PRN PRN Reason: Insomnia
[2018-10-03] MEDS ORDERED: PROPOFOL 200 MG/20 ML VIAL ONE (16:15)
[2018-10-03] MEDS ORDERED: AMIKACIN SULFATE IVPB SCH (17:00)
--- NOTE | 2018-10-03 17:31 | CT ---
ABDOMEN CT WITHOUT CONTRAST PELVIC CT WITHOUT CONTRAST 10/03/18 HISTORY: Worsening hemoglobin status post nephrectomy. Evaluate for possible bleed. COMPARISON: 10/02/18. FINDINGS: Interval placement of a left sided nephrostomy. There is evidence of a interval decompression of the left intrarenal collecting system. There is a left perinephric hematoma. This hematoma measures 4.1 x 7.5 cm. Blood tracks along the left retroperitoneal space. There is a hematoma superficial to the le ft psoas muscle measuring 4.5 x 3.3 cm. Stable hypodensities in the liver. Gallbladder is surgically absent. The spleen, pancreas and right k idney are unchanged. Alimentary canal is unremarkable. Interval development of fluid in the left and right pericolic gutte rs. Interval slight increasing of bilateral pleural effusions with adjacent consolidation of the lung bases. There is a stable calculus in the proximal left ureter measuring 1.[address]: There is evidence of interval development of complex fluid in the pelvis. Decompression of the urinar y bladder due to Rodriguez catheterization. IMPRESSION: 1. Interval placement of a left sided nephrostomy catheter. There does appear to be perinephric hematoma extending along the left retroperitoneal space. There is also evidence of complex fluid in t he pelvis. There is some mass effect upon the left kidney with anterior displacement. 2. Interval decompression of the left intrarenal collecting system. 3. Results of the study discussed with Robyn, patient's nurse, 10/03/18 at 5:03 p.m. Code CR POS: [facility]
[2018-10-03 17:53] LABS: INR-International Normal Ratio 1.4; PTT 35.9 SEC (22.9-36.1); Prothrombin Time 17.4 SEC (12.0-14.7)
[2018-10-03 17:59] LABS: Hemoglobin 7.4 g/dL (12.0-16.0); Platelet Count 234 thou/uL (130-400)
[2018-10-03] MEDS: D5 1/2 NS w/10 mEq KCl 1,000 ML/1,000 ML BAG IV SCH (18:40)
[2018-10-03] MEDS: MEROPENEM 1 GM/50 ML 1 GM in Premix Bag 1 BAG IVPB SCH (18:40)
[2018-10-03] MEDS: Amiodarone 200 MG TAB PO SCH (23:00)
--- NOTE | 2018-10-04 00:49 | CON ---
DATE OF CONSULTATION: 10/03/2018 REASON FOR CONSULTATION: Urinary tract infection with obstruction. HISTORY OF PRESENT ILLNESS: A 78-year-old with history of hyperlipidemia, appendectomy, hysterectomy, who apparently was admitted to [facility] recently with some infection associated with fever, which was treated with levofloxacin. She had recrudescence of the fever with altered mental status, urgency, vomiting, general malaise. No headaches. No dyspnea or chest pain. No abdominal pain. She did have back pain in the left back area, which started 4 weeks before admission, and this pain was described initially to her lower back. PAST MEDICAL HISTORY: Hyperlipidemia. PAST SURGICAL HISTORY: Appendectomy, hysterectomy. FAMILY HISTORY: Noncontributory. SOCIAL HISTORY: . Never-smoker. ALLERGIES: PENICILLIN. CURRENT MEDICATIONS: 1. Tylenol. 2. Amiodarone. 3. Dulcolax. 4. Caltrate. 5. Cefepime. 6. Pepcid. 7. TriCor. 8. Apresoline. 9. Zofran. 10. K-Dur. 11. Venlafaxine. 12. Zolpidem. PHYSICAL EXAMINATION: VITAL SIGNS: T-max 101.7 to 102.5, and other vital signs showed some tachypnea. SKIN: With no significant findings. The patient has a Rodriguez catheter in place , and she also has a percutaneous nephrostomy tube placed in the left flank area. LYMPHATICS: No lymphadenopathy. HEENT: Ocular movements conjugate. Appears somewhat pale. Oral cavity, normal. NECK: Supple. No jugular venous distention. LUNGS: With symmetric air entry. HEART: S1 and S2, regular rate. No S3 or S4. ABDOMEN: Soft, not distended or tender. Mild left CVA tenderness. EXTREMITIES: No joint inflammatory activity. Able to move extremities, but she is diffusely weak. Pulses 1+ in dorsalis pedis. No edema. Plantar responses are flexor. NEUROLOGIC: Cognitive function appears to be intact. LABORATORY DATA: White cell count is up to 15.9, hemoglobin 8.5, platelets 237 ; 59% neutrophils, 7% lymphocytes, bands are 59%. Sodium 142, creatinine 1.48, which is stable from admission, AST 179, ALT 81, alkaline phosphatase 95. BNP 2100. Albumin 3.0. Urinalysis with 7 to 10 wbc's, protein greater than 300, and aspirate from the kidney showed a wbc count of 224 with a predominance of rbc's. Microbiology with gram-positive rods identified, and the culture from the kidney aspirate with beaded filamentous gram-positive variable rods. IMAGING DATA: CT scan of the abdomen showed a UVJ stone on the left side with moderate hydronephrosis and fat stranding in left renal sinus, consistent with either edema or extravasation of urine. ASSESSMENT: 1. Hyperlipidemia. 2. Ureterovesical junction obstruction by stone with severe left-sided pyelonephritis with a beaded gram-positive organism identified with pending further identification and susceptibility testing. DISCUSSION: The organisms that could conform to the description of the microbiologist would include Nocardia, Actinomyces as the more likely ones. Some other organisms that might be confused with Actinomyces and Nocardia can represent pathogens that change their morphology due to nutritional variation. We will switch her to meropenem and give her amikacin as well until there is further identification of the organism to allow long-term planning. She will need protracted antimicrobial therapy administration. Also, the obstruction will have to be resolved, probably with stent placement once she is more stable to allow removal of the nephrostomy tube. Eventual lithotripsy then to be carried out by Urology down the road. Job ID: [id number] MTDD
[2018-10-04] MEDS: MEROPENEM 1 GM/50 ML 1 GM in Premix Bag 1 BAG IVPB SCH ×2 (05:29→17:40)
[2018-10-04 06:05] LABS: Anion Gap 11 mmol/L (10-20); BUN (Urea Nitrogen) 37 mg/dL (9.8-20.1); Calc. Creatinine Clearance 29 mL/min (70-130); Calcium 7.3 mg/dL (7.8-10.44); Carbon Dioxide 15 mmol/L (23-31); Chloride 114 mmol/L (98-107); Estimated GFR-MDRD 28; Glucose 123 mg/dL (83-110); Magnesium 2.2 mg/dL (1.6-2.6); Phosphorus 2.5 mg/dL (2.3-4.7); Potassium 3.6 mmol/L (3.5-5.1); Sodium 136 mmol/L (136-145)
[2018-10-04] MEDS: D5 1/2 NS w/10 mEq KCl 1,000 ML/1,000 ML BAG IV SCH (06:10)
[2018-10-04 06:11] LABS: Hemoglobin 9.7 g/dL (12.0-16.0); Mean Corpuscular HGB CONC 33.5 g/dL (32.0-36.0); Mean Corpuscular Hemoglobin 30.6 pg (27.0-31.0); Mean Corpuscular Volume 91.4 fL (78.0-98.0); Mean Platelet Volume 9.5 fL (7.4-10.4); Platelet Count 236 thou/uL (130-400); Red Blood Cell (RBC) Count 3.16 mill/uL (4.20-5.40); White Blood Cell (WBC) Count 21.1 thou/uL (4.8-10.8)
[2018-10-04 06:12] LABS: Band 35 % (5-11); Lymphocytes 6 % (21-51); MDiff Complete? YES; Metamyelocyte 3 % (0-0); Monocytes 2 % (0-10); Neutrophil 54 % (42-75); PLT Morphology Comment Appears Adequate
--- NOTE | 2018-10-04 07:51 | PDOC.PN ---
- Subjective Encounter Start Date: 10/04/18 Encounter Start Time: 07:49 Subjective: minimal cough, OW no complaints - Objective Resuscitation Status - Order Detail: 10/01/18 01:28 Resuscitation Status Routine Resuscitation Status: FULL: Full Resuscitation MAR Reviewed: Yes Vital Signs & Weight: Vital Signs (12 hours) Temp Pulse Resp BP Pulse Ox 10/04/18 07:28 97.6 F 82 19 144/58 H 98 10/04/18 03:12 98.4 F 87 26 H 157/82 H 96 10/04/18 00:21 98.4 F 89 28 H 136/56 L 96 10/03/18 23:58 98.6 F 93 24 H 142/54 H 96 10/03/18 23:00 97 149/91 H 10/03/18 22:00 88 150/53 H 10/03/18 21:00 90 134/63 10/03/18 20:00 92 139/59 L Weight Weight 155 lb 3.2 oz I&O: 10/03/18 10/04/18 10/05/18 06:59 06:59 06:59 Intake Total 2680 3070 Output Total 825 780 Balance 1855 2290 Result Diagrams: 10/04/18 05:13 10/04/18 05:13 Phys Exam - Physical Examination Neck: no JVD Respiratory: clear to auscultation bilateral Cardiovascular: RRR, no significant murmur Gastrointestinal: soft, positive bowel sounds Musculoskeletal: no edema Dx/Plan (1) Atrial fibrillation with RVR Code(s): I48.91 - UNSPECIFIED ATRIAL FIBRILLATION Status: Resolved Comment: in sinus post cardioversion this am (2) Bacteremia Code(s): R78.81 - BACTEREMIA Status: Acute (3) Bilateral nephrolithiasis Code(s): N20.0 - CALCULUS OF KIDNEY Status: Acute (4) Hydronephrosis of left kidney Code(s): N13.30 - UNSPECIFIED HYDRONEPHROSIS Status: Acute Comment: s/p perc nephrostomy tube 10/02/2018 (5) Sepsis Code(s): A41.9 - SEPSIS, UNSPECIFIED ORGANISM Status: Acute Qualifiers: Sepsis type: sepsis due to unspecified organism Qualified Code(s): A41.9 - Sepsis, unspecified organism (6) UTI (urinary tract infection) Status: Acute Qualifiers: Urinary tract infection type: acute cystitis Hematuria presence: without hematuria Qualified Code(s): N30.00 - Acute cystitis without hematuria (7) Dyslipidemia Code(s): E78.5 - HYPERLIPIDEMIA, UNSPECIFIED Status: Chronic (8) HTN (hypertension) Code(s): I10 - ESSENTIAL (PRIMARY) HYPERTENSION Status: Chronic Qualifiers: Hypertension type: essential hypertension Qualified Code(s): I10 - Essential (primary) hypertension - Plan contiue iv antibx- discuss with ID -: cont po amiodarone * .
[2018-10-04] MEDS ORDERED: Sodium Chloride 0.9% 1,000 ML IV SCH (08:15)
[2018-10-04] MEDS ORDERED: Potassium Chloride 20 MEQ TAB PO SCH (09:30)
[2018-10-04] MEDS: Venlafaxine HCl XR 150 MG CAP PO SCH (10:13)
[2018-10-04] MEDS: Calcium Carbonate 600 MG TAB PO SCH (10:13)
[2018-10-04] MEDS: Fenofibrate Nanocrystallized 145 MG TAB PO SCH (10:13)
[2018-10-04] MEDS: Famotidine 20 MG TAB PO SCH (10:14)
[2018-10-04] MEDS: Multivitamin W/ Minerals 1 TAB PO SCH (10:14)
[2018-10-04] MEDS: Potassium Chloride 20 MEQ TAB PO SCH (10:14)
[2018-10-04] MEDS: Amiodarone 200 MG TAB PO SCH ×2 (10:14→15:56)
--- NOTE | 2018-10-04 10:40 | PRG ---
DATE OF SERVICE: 10/04/2018 SERVICE: Pulmonary Medicine INTERVAL HISTORY: The patient is actually doing outstanding from a respiratory standpoint. The bleeding has stopped. She responded appropriately to a couple units of blood. She has a better color today. She denies any current fevers, chills, nausea, or vomiting. She does not say she is short of breath, but she is a little bit more tachypneic today. Otherwise, there has been no notable change to her condition. PHYSICAL EXAMINATION: VITAL SIGNS: Afebrile, pulse 82, blood pressure 144/58, respirations 19, and saturation 98%, still on room air. GENERAL: The patient is awake and alert, in no apparent distress. LUNGS: Excellent air entry. There are crackles present. There is a slightly prolonged expiratory phase with some minimal polyphonic wheezing present. HEART: Normal rate and regular. ABDOMEN: Soft, nontender, and nondistended. Bowel sounds are positive. MUSCULOSKELETAL: No cyanosis or clubbing. There is no pitting in the bilateral lower extremities. NEUROLOGIC: Grossly nonfocal. LABORATORY DATA: WBC 21, hemoglobin 9.7, appropriately responding to 2 units of blood, and platelets 236,000. Band count has improved to 35%. Creatinine 1.75 and gently uptrending, BUN 37. Basic metabolic profile is otherwise improving/unremarkable. Her potassium has improved to 3.6. Cultures are unremarkable except for an initial gram-positive darrius growing in 1 out of 2 blood cultures. Respiratory virus panel is negative, kidney aspirate is negative today. ASSESSMENT: 1. Severe sepsis. 2. Pyelonephritis, secondary to obstructing stone. 3. Nephrolithiasis, status post percutaneous nephrostomy tube placement. 4. Acute kidney injury. 5. Chronic diastolic heart failure, starting to become volume overloaded. DISCUSSION AND PLAN: I will discontinue the IV fluids. We will discontinue the bolus that was possibly going to be scheduled. The patient is much less toxic today. Her blood pressure is firmed up nicely. As such, we are just dealing with a fall out from the previous injury to the kidney. I do not think she needs additional fluid at this time. We will try to mobilize her and get her into a chair twice daily. I will give her one more dose of potassium today. Pulmonary Critical Care will continue to follow along. I would like the patient to stay in [facility] for one additional night until she firms up a touch more. Job ID: [id number]
--- NOTE | 2018-10-04 11:14 | PRG ---
DATE OF SERVICE: 10/04/2018 SUBJECTIVE: Over the last 24 hours, she got cardioverted successfully, then was noted to have a drop in her hemoglobin and hematocrit, and a CT scan confirmed a hematoma bleed from the percutaneous nephrostomy tube which was still in the collecting system. Overall, the patient feels better than yesterday and has no complaints. She denies shortness of breath, but appears tachypneic, and when discussing it further, she does admit to some difficulty with breathing, but denies any cough or sputum. She has minimal appetite, but is eating. OBJECTIVE: VITAL SIGNS: She has remained afebrile with a T-max of 98.6. Her heart rate has remained in the 80s to 90s, and her blood pressure has remained stable. She only put out 80 from the percutaneous nephrostomy tube in the past 24 hours and 700 total, and saturating 99% on room air with the respiratory rate down to the high-teens. GENERAL: She appears comfortable except for some mildly labored breathing. HEART: Regular rate and rhythm. LUNGS: Clear to auscultation, but with some wheezing noted. ABDOMEN: Percutaneous nephrostomy tube is in place, and both that and the Rodriguez catheter were draining urine that has cleared, and the tubing from the Rodriguez was yellow. LABORATORY DATA: Laboratory values revealed a white count that is rising to 21.1, I think this is delayed in response as her bands are coming down. Her hemoglobin and hematocrit dropped to 7.4 and 22.1, and now back up after receiving transfusion to 9.7 and 28.9. Her BUN and creatinine have only risen to 37 and 1.75, but her potassium is normal at 3.6. DIAGNOSTIC DATA: CT scan from 10/03/2018, without contrast revealed the percutaneous nephrostomy tube is in the upper collecting system of the left kidney, and there is an associated hematoma that extends down into the retroperitoneum and even into the pelvis. There is no hydronephrosis, and the bladder is decompressed with a Rodriguez. ASSESSMENT AND PLAN: In assessment, we have a 78-year-old female, status post emergent percutaneous nephrostomy tube for sepsis secondary to urinary tract infection and obstructing left ureteropelvic junction stone, who also had rapid atrial fibrillation from this whole process, now status post successful cardioversion with subsequent post percutaneous nephrostomy tube bleed, now stabilized, with renal insufficiency and decreased urine output that would likely respond best to further hydration but has to be tempered by her breathing status. Continue IV antibiotics and all drainage at this time and continue to monitor. Job ID: [id number] MTDD
--- NOTE | 2018-10-04 12:12 | PDOC.CTH ---
Cardiology Progress Note - Subjective EP PROGRESS NOTE: 10/04/18 Patient seen and evaluated. No new cardiac concerns or complaints today. Denies heart racing, palpitations, chest pain/pressure, dizziness, or passing out. No stroke like symptoms. Her breathing is easier today and more relaxed. She is resting in bed comfortably. No pain. - Objective Vital Signs Temp Pulse Resp BP Pulse Ox 10/04/18 10:52 97.9 F 82 22 H 145/78 H 97 10/04/18 07:38 99 10/04/18 07:28 97.6 F 82 19 144/58 H 98 10/04/18 03:12 98.4 F 87 26 H 157/82 H 96 10/04/18 00:21 98.4 F 89 28 H 136/56 L 96 Weight 155 lb 3.2 oz 10/03/18 10/04/18 10/05/18 06:59 06:59 06:59 Intake Total 2680 3070 Output Total 825 780 Balance 1855 2290 - Physical Examination General/Neuro: alert & oriented x3, NAD Neck: carotid US brisk, no JVD present Lungs: CTA, unlabored respirations Heart: PMI normal, RRR Abdomen: NT/ND, soft - Telemetry Telemetry Rhythm: SR - Labs Result Diagrams: 10/04/18 05:13 10/04/18 05:13 - Assessment/Plan 1. Atrial fibrillation and flutter with RVR -on po Amiodarone -s/p DCCV yesterday AM, now in SR 2. Nephrolithiasis -L>R -s/p left nephrostomy tube and barclay placement 3. QTc prolongation -antibiotics adjusted. - stable on amiodarone 4. A/C diastolic heart failure 5. Renal insufficiency 6. Elevated liver enzymes -[address] - will need continued monitoring of LFTs while on amiodarone 7. CHADS2-VASC: 3 (age, female gender) - lovenox
--- NOTE | 2018-10-04 12:31 | PQF ---
DATE: 10-04-18 ATTN: DR. AYDEN KOROMA Please exercise your independent, professional judgment in responding to the clarification form. Clinical indicators are provided on the bottom of this form for your review Please check appropriate box(s): [ ] Encephalopathy: Type: [ ] Acute [ ] Subacute [ ] Chronic Etiology: [ ] Metabolic [ ] Toxic [ ] Septic [ ] Other (please specify) [ ] Transient Alteration of Awareness [ ] Other diagnosis [ x] Unable to determine no documentation of abnormal mental status In addition, please specify: Present on Admission (POA): [ ] Yes [ ] No [ ] Unable to determine For continuity of documentation, please document condition throughout progress notes and discharge summary. Thank You. CLINICAL INDICATORS - SIGNS / SYMPTOMS / LABS H&P: SEPSIS SECONDARY TO UTI PN DR. ARROYO 10-03-18: ACUTE ENCEPHALOPATHY RISK FACTORS: H&P: SEPSIS SECONDARY TO UTI TREATMENTS:ER: NS IVF, VANCOMYCIN IV, IVF NS, CEFEPIME IV (This form is maintained as a part of the permanent medical record) 2014 [employer] All Rights Reserved [email or web address] Office: [phone] [facility]DR[facility]S HOSPITALMariela
--- NOTE | 2018-10-04 12:48 | PDOC.CTH ---
<Katy Brown - Last Filed: 10/04/18 12:54> Cardiology Progress Note - Subjective The pt seen and examined. No overnight events. She is still lethargic. Per family, she is breathing better today. - Objective Vital Signs Temp Pulse Resp BP Pulse Ox 10/04/18 10:52 97.9 F 82 22 H 145/78 H 97 10/04/18 07:38 99 10/04/18 07:28 97.6 F 82 19 144/58 H 98 10/04/18 03:12 98.4 F 87 26 H 157/82 H 96 Weight 155 lb 3.2 oz 10/03/18 10/04/18 10/05/18 06:59 06:59 06:59 Intake Total 2680 3070 Output Total 825 780 Balance 1855 2290 - Physical Examination General/Neuro: other: (lethergic) Lungs: CTA, other: (diminished at bases) Heart: RRR Abdomen: soft Extremities: other: (No edema) - Telemetry Telemetry Rhythm: SR 80s - Labs Result Diagrams: 10/04/18 05:13 10/04/18 05:13 - Assessment/Plan 1. Afib and flutter with RVR with S/p DAVIS and DCCV on 10/03/18 - Remains in SR with Amiodarone 200mg TID; CHADS2-VASC: 3 (age, female gender), but not on OAC at this moment due to s/p nephrostomy tube placement on 10/02/18. 2. Lt Hydronephrosis with s/p Lt nephrostomy tube placement on 10/02/2018 3. Acute on Chronic Diastolic HF - stable; Will start Coreg 3.125mg BID from this PM; not on TI/ARB due to MIKE. 4. Elevated liver enzymes - [address]; need continued monitoring of LFTs while on amiodarone 5. HTN - will start Coreg 3.125mg BID MAR reviewed Review of Systems - Review of Systems Constitutional: reports: see HPI EENTM: reports: see HPI Respiratory: reports: see HPI Cardiac (ROS): reports: see HPI ABD/GI: reports: see HPI <Samson Mckeon - Last Filed: 10/04/18 21:23> Cardiology Progress Note - Objective Vital Signs Temp Pulse Resp BP Pulse Ox 10/04/18 19:48 98.0 F 76 30 H 123/64 94 L 10/04/18 15:30 97.6 F 81 20 179/82 H 10/04/18 10:52 97.9 F 82 22 H 145/78 H 97 Weight 155 lb 3.2 oz 10/03/18 10/04/18 10/05/18 06:59 06:59 06:59 Intake Total 2680 3070 570 Output Total 802 579 2719 Balance 1855 2290 -530 - Labs Result Diagrams: 10/04/18 05:13 10/04/18 05:13 - Assessment/Plan Pt. seen and eval. by me. I agree with the A/P by the SIMULATION SOFTWARE ENGINEER. The pt admits to feeling better today. Maintaining sinus rhythm
[2018-10-04] MEDS: Carvedilol 3.125 MG TAB PO SCH (17:40)
--- NOTE | 2018-10-04 18:12 | CON ---
DATE OF CONSULTATION: 10/03/2018 HISTORY OF PRESENT ILLNESS: In the evening, after a CT scan had revealed an obstructing stone and the patient had been treated for urinary tract infection and still spiking, the admitting doctor communicated all of this to me including her newly onset rapid AFib into the 130s despite a Cardizem drip, and after reviewing her labs and other vital signs, felt that she was septic and more appropriate for percutaneous nephrostomy tube in an urgent situation as well as the admitting physician felt that they should not have general anesthesia until the rapid AFib was cardioverted. I discussed I felt the rapid AFib was likely a result of the sepsis and fixing that could potential fix the rapid AFib. With this plan, I spoke with Interventional Radiology and they agreed to place percutaneous nephrostomy tube which was placed by about 9:30 p.m. that evening. Overnight, she actually had a heart rate that went down into the 90s, but then around the time that she spiked a temperature again, she went back up into the 130s to 150s and is still in that currently. She denies any pain, but she is tachypneic and has some difficulty speaking, but is appropriate and communicating well, just fatigued. She was originally admitted to the [facility] and given Levaquin and set out on this, but she had a fever of 102. She no longer had her lower urinary tract symptoms that originally started with UTI, but did still have urgency. She was readmitted to [place] with further malaise. She has had history of stones, and she passed them on her own, she has never required surgery. She has had history of urinary tract infection. They have not been a significant issue. She does not have any atrial fibrillation history. She does have leakage and requires one pad a day, if she has a cough, she uses more. Normally, she has frequency only q.4 to 5 hours, nocturia x2. I reviewed this in detail; however, she does not drink enough water and is to drink more. PAST MEDICAL HISTORY: Significant for high cholesterol and anxiety. PAST SURGICAL HISTORY: Appendectomy that ruptured and a negative breast biopsy in 1986. PAST OB: She had 2 vaginal deliveries. 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 MEDICATIONS: Include, 1. Pristiq. 2. Tricor. 3. Multivitamin. 4. Aspirin 81 mg. ALLERGIES: INCLUDE PENICILLIN AND HER REACTION IS "SANDBAGS BEING PILED ON ME. " REVIEW OF SYSTEMS: Show she had a colonoscopy in 2013 that showed a polyp. Mammogram in 2017 that was normal. Pap smear that was removed, but otherwise normal. She does have tachycardia which is new. She has no shortness of breath despite appearing tachypneic. She has no headache, dizziness, chest pain. Initially, there was no concern for constipation, but then she reports she does and has not had a bowel movement in 2 days. She has no diarrhea. She has no cough. SOCIAL HISTORY: She has no history of smoking, drinking, or drugs. FAMILY HISTORY: Significant for her mom in 88 of old age. She did have esophageal cancer, but did not of that. Father of 79 of old age. PHYSICAL EXAMINATION: GENERAL: She is lying in the bed comfortably and easily arouse. VITAL SIGNS: T-max was 102.5 after the percutaneous tube was placed and has come back down to 98.0. As previously mentioned, the heart rate improved initially and then when she spiked again with her pyelonephritis fever curve, the rapid AFib returned and is still in that currently with a respiratory rate near 30. Blood pressure was 152/79 and back down to 116/71. She is sating 95% on room air. HEART: Irregular rhythm and tachycardic, but no obvious murmurs, gallops, or rubs. LUNGS: Clear to auscultation bilaterally. ABDOMEN: Soft, nondistended, nontender. She reported costovertebral angle tenderness, but did not have significant tenderness. Drain already placed draining dark red urine for 475 overnight and the Rodriguez catheter is draining pink urine and that placed 350 overnight. EXTREMITIES: She had no lower extremity edema. She was pale without any diaphoresis. No scleral icterus nor JVD. LABORATORY DATA: CBC initially was 12.9 and dropped down to 4.7. The labs for today are still pending, but her bands had jumped from 4% to 33%, platelets remained stable at 258 and BUN and creatinine were 20 and 1.48. It had previously been 1.46 down to 1.33 in backup. Urinalysis from admission showed 7 to 10 wbc's, 11 to 20 rbc's, 2+ bacteria, 4 to 6 squamous. I do not have the urinalysis from the [facility] nor the culture. Her blood culture is already positive for gram-positive rods. BNP showed 2104.9. A CT scan from 10/02/2018 without contrast, but she had contrast administered for chest CAT scan showed positive left hydronephrosis with contrasting remaining in the collecting system with 1.3 cm x 8 mm x 9 mm UPJ with hydronephrosis. There was also a stone in the lower pole that was partial staghorn and a 4 x 3 mm stone next to it. She also had a 4 x 3 mm stone in the left mid kidney and a 4 x 3 mm stone in the right mid kidney. No right hydronephrosis. No masses. There was contrast in the bladder and the stone was seen on the horticultural specialty grower field portion of the film. ASSESSMENT: We have a 78-year-old female, admitted with sepsis secondary to an obstructing ureteral stone with resulting rapid atrial fibrillation. She now has adequate drainage, but is still having spiking consistent with pyelonephritis curve and would ultimately expect this. This may also trip her atrial fibrillation if she is able to be successfully cardioverted and they were taking her for this now. Await labs, blood cultures, and treat with appropriate antibiotics--for now cefepime and vancomycin and continue adequate drainage of the collecting system with PCN and Rodriguez. Job ID: [id number] [facility]
--- NOTE | 2018-10-04 21:43 | EKG ---
Test Reason : RHYTHM CHANGE Blood Pressure : / mmHG Vent. Rate : 157 BPM Atrial Rate : 314 BPM P-R Int : 000 ms QRS Dur : 072 ms QT Int : 318 ms P-R-T Axes : -87 -51 -53 degrees QTc Int : 514 ms Atrial flutter with 2:1 A-V conduction Left axis deviation Possible Anterior infarct (cited on or before 01-OCT-2018) Marked ST abnormality, possible inferior subendocardial injury Abnormal ECG When compared with ECG of 01-OCT-2018 18:36, (Unconfirmed) Significant changes have occurred Confirmed by Ne PORTER ([id number]) on 10/04/2018 9:43:17 PM Referred By: KENNY Confirmed By:Ne PORTER
--- NOTE | 2018-10-04 21:46 | EKG ---
Test Reason : Blood Pressure : / mmHG Vent. Rate : 137 BPM Atrial Rate : 138 BPM P-R Int : 000 ms QRS Dur : 070 ms QT Int : 290 ms P-R-T Axes : 000 -44 -29 degrees QTc Int : 437 ms Supraventricular tachycardia Atrial flutter Left axis deviation Inferior infarct , age undetermined Abnormal ECG When compared with ECG of 02-OCT-2018 02:37, (Unconfirmed) Sinus rhythm has replaced Atrial flutter Confirmed by Ne PORTER ([id number]) on 10/04/2018 9:46:32 PM Referred By: CRUZ Confirmed By:Ne PORTER
--- NOTE | 2018-10-04 21:53 | EKG ---
Test Reason : Blood Pressure : / mmHG Vent. Rate : 138 BPM Atrial Rate : 138 BPM P-R Int : 118 ms QRS Dur : 076 ms QT Int : 310 ms P-R-T Axes : -88 -49 -07 degrees QTc Int : 469 ms Unusual P axis and short NE, probable junctional tachycardia Atrial flutter Left axis deviation Nonspecific ST and T wave abnormality Abnormal ECG When compared with ECG of 02-OCT-2018 13:12, (Unconfirmed) Junctional rhythm has replaced Sinus rhythm Confirmed by Ne PORTER ([id number]) on 10/04/2018 9:53:13 PM Referred By: CALI Confirmed By:Ne PORTER
--- NOTE | 2018-10-04 21:54 | EKG ---
Test Reason : POST CARDIOVERSION Blood Pressure : / mmHG Vent. Rate : 087 BPM Atrial Rate : 087 BPM P-R Int : 158 ms QRS Dur : 072 ms QT Int : 376 ms P-R-T Axes : 063 -40 032 degrees QTc Int : 452 ms Normal sinus rhythm Left axis deviation Abnormal ECG When compared with ECG of 03-OCT-2018 07:08, (Unconfirmed) Sinus rhythm has replaced Junctional rhythm Vent. rate has decreased BY 51 BPM Confirmed by Ne PORTER ([id number]) on 10/04/2018 9:53:41 PM Referred By: CHARLOTTE Confirmed By:Ne PORTER
[2018-10-05] MEDS: Amiodarone 200 MG TAB PO SCH ×4 (00:03→23:15)
[2018-10-05] MEDS: MEROPENEM 1 GM/50 ML 1 GM in Premix Bag 1 BAG IVPB SCH ×2 (05:38→18:18)
[2018-10-05 06:06] LABS: ALT (SGPT) 48 U/L (8-55); AST (SGOT) 87 U/L (5-34); Albumin 2.5 g/dL (3.4-4.8); Alkaline Phosphatase 166 U/L (40-150); Anion Gap 12 mmol/L (10-20); BUN (Urea Nitrogen) 32 mg/dL (9.8-20.1); Bilirubin, Total 0.4 mg/dL (0.2-1.2); Calc. Creatinine Clearance 39 mL/min (70-130); Carbon Dioxide 16 mmol/L (23-31); Chloride 115 mmol/L (98-107); Estimated GFR-MDRD 40; Globulin 3.2 g/dL (2.4-3.5); Glucose 88 mg/dL (83-110); Potassium 4.3 mmol/L (3.5-5.1); Protein, Total 5.7 g/dL (6.0-8.3); Sodium 139 mmol/L (136-145)
[2018-10-05 06:58] LABS: Band 14 % (5-11); Hemoglobin 9.6 g/dL (12.0-16.0); Lymphocytes 5 % (21-51); MDiff Complete? YES; Mean Corpuscular HGB CONC 33.1 g/dL (32.0-36.0); Mean Corpuscular Hemoglobin 30.2 pg (27.0-31.0); Mean Corpuscular Volume 91.1 fL (78.0-98.0); Mean Platelet Volume 9.4 fL (7.4-10.4); Monocytes 6 % (0-10); Myelocyte 2 % (0-0); Neutrophil 73 % (42-75); Platelet Count 259 thou/uL (130-400); RBC Distribution Width 13.3 % (11.5-14.5); Red Blood Cell (RBC) Count 3.18 mill/uL (4.20-5.40); White Blood Cell (WBC) Count 18.2 thou/uL (4.8-10.8)
[2018-10-05] MEDS: Fenofibrate Nanocrystallized 145 MG TAB PO SCH (09:54)
[2018-10-05] MEDS: Famotidine 20 MG TAB PO SCH (09:54)
[2018-10-05] MEDS: Multivitamin W/ Minerals 1 TAB PO SCH (09:54)
[2018-10-05] MEDS: Venlafaxine HCl XR 150 MG CAP PO SCH (09:54)
[2018-10-05] MEDS: Carvedilol 3.125 MG TAB PO SCH ×2 (09:54→18:18)
[2018-10-05] MEDS: Calcium Carbonate 600 MG TAB PO SCH (09:54)
[2018-10-05] MEDS: Potassium Chloride 20 MEQ TAB PO SCH (09:55)
--- NOTE | 2018-10-05 11:01 | PDOC.PN ---
- Subjective Encounter Start Date: 10/05/18 Encounter Start Time: 11:00 Subjective: alert, no sob, pain, fever - Objective Resuscitation Status - Order Detail: 10/01/18 01:28 Resuscitation Status Routine Resuscitation Status: FULL: Full Resuscitation MAR Reviewed: Yes Vital Signs & Weight: Vital Signs (12 hours) Temp Pulse Resp BP Pulse Ox 10/05/18 10:53 97.1 F L 74 16 163/75 H 97 10/05/18 08:00 100 10/05/18 07:28 97.3 F L 74 18 148/76 H 100 10/05/18 04:24 97.5 F L 76 17 148/84 H 98 10/05/18 01:28 100 10/05/18 00:26 97.9 F 79 25 H 151/74 H 93 L Weight Weight 155 lb 3.2 oz I&O: 10/04/18 10/05/18 10/06/18 06:59 06:59 06:59 Intake Total 3070 1235 Output Total 780 1925 Balance 2290 -690 Result Diagrams: 10/05/18 04:11 10/05/18 04:11 Phys Exam - Physical Examination Neck: no JVD Respiratory: clear to auscultation bilateral Cardiovascular: RRR, no significant murmur Gastrointestinal: soft, positive bowel sounds Musculoskeletal: no edema Dx/Plan (1) Atrial fibrillation with RVR Code(s): I48.91 - UNSPECIFIED ATRIAL FIBRILLATION Status: Resolved Comment: in sinus post cardioversion this am (2) Bacteremia Code(s): R78.81 - BACTEREMIA Status: Acute (3) Bilateral nephrolithiasis Code(s): N20.0 - CALCULUS OF KIDNEY Status: Acute (4) Hydronephrosis of left kidney Code(s): N13.30 - UNSPECIFIED HYDRONEPHROSIS Status: Acute Comment: s/p perc nephrostomy tube 10/02/2018 (5) Sepsis Code(s): A41.9 - SEPSIS, UNSPECIFIED ORGANISM Status: Acute Qualifiers: Sepsis type: sepsis due to unspecified organism Qualified Code(s): A41.9 - Sepsis, unspecified organism (6) UTI (urinary tract infection) Status: Acute Qualifiers: Urinary tract infection type: acute cystitis Hematuria presence: without hematuria Qualified Code(s): N30.00 - Acute cystitis without hematuria (7) Dyslipidemia Code(s): E78.5 - HYPERLIPIDEMIA, UNSPECIFIED Status: Chronic (8) HTN (hypertension) Code(s): I10 - ESSENTIAL (PRIMARY) HYPERTENSION Status: Chronic Qualifiers: Hypertension type: essential hypertension Qualified Code(s): I10 - Essential (primary) hypertension (9) Hydronephrosis Code(s): N13.30 - UNSPECIFIED HYDRONEPHROSIS Status: Acute - Plan cont iv antibx -: cont nephrostomy drainage -: cont amiodarone -: further plans per urology * .
--- NOTE | 2018-10-05 11:11 | PDOC.CTH ---
<Katy Brown - Last Filed: 10/05/18 11:09> Cardiology Progress Note - Subjective The pt seen and examined. No overnight events. No cardiac complaints. Still lethargic. - Objective Vital Signs Temp Pulse Resp BP Pulse Ox 10/05/18 10:53 97.1 F L 74 16 163/75 H 97 10/05/18 08:00 100 10/05/18 07:28 97.3 F L 74 18 148/76 H 100 10/05/18 04:24 97.5 F L 76 17 148/84 H 98 10/05/18 01:28 100 10/05/18 00:26 97.9 F 79 25 H 151/74 H 93 L Weight 155 lb 3.2 oz 10/04/18 10/05/18 10/06/18 06:59 06:59 06:59 Intake Total 3070 1235 Output Total 780 1925 Balance 2290 -690 - Physical Examination General/Neuro: alert & oriented x3 Neck: no JVD present Lungs: other: (very coarses) Heart: RRR Abdomen: soft Extremities: other: (No edema) - Telemetry Telemetry Rhythm: SR - Labs Result Diagrams: 10/05/18 04:11 10/05/18 04:11 - Assessment/Plan 1. Afib and flutter with RVR with S/p DAVIS and DCCV on 10/03/18 - Remains in SR with Amiodarone 200mg TID since 10/03/18 @ 2300; CHADS2-VASC: 3 (age, female gender), but not on OAC at this moment due to s/p nephrostomy tube placement on 10/02/18. 2. Lt Hydronephrosis with s/p Lt nephrostomy tube placement on 10/02/2018 3. Acute on Chronic Diastolic HF - stable; on BBlocker; not on TI/ARB due to IMKE. 4. Elevated liver enzymes - [address]; LFT better today. need continued monitoring of LFTs while on amiodarone 5. HTN - stable MAR reviewed Review of Systems - Review of Systems EENTM: reports: no symptoms reported Respiratory: reports: no symptoms reported Cardiac (ROS): reports: no symptoms reported ABD/GI: reports: no symptoms reported : reports: no symptoms reported <Samson Mckeon - Last Filed: 10/05/18 15:55> Cardiology Progress Note - Objective Vital Signs Temp Pulse Pulse Resp BP BP BP 10/05/18 15:07 97.3 F L 16 135/61 10/05/18 10:54 76 149/86 H 145/77 H 10/05/18 10:53 97.1 F L 74 16 163/75 H 10/05/18 08:00 10/05/18 07:28 97.3 F L 74 18 148/76 H 10/05/18 04:24 97.5 F L 76 17 148/84 H Pulse Ox Pulse Ox 10/05/18 15:07 10/05/18 10:54 98 10/05/18 10:53 97 10/05/18 08:00 100 10/05/18 07:28 100 10/05/18 04:24 98 Weight 155 lb 3.2 oz 10/04/18 10/05/18 10/06/18 06:59 06:59 06:59 Intake Total 3070 1235 Output Total 780 1925 Balance 2290 -690 - Labs Result Diagrams: 10/05/18 04:11 10/05/18 04:11 - Assessment/Plan Pt. seen and eval. by me. i agree with the A/P by the X RAY OPERATOR. She is stable from a cardiac standpoint. Chest clear. RRR.
--- NOTE | 2018-10-05 11:58 | PRG ---
DATE OF SERVICE: 10/05/2018 SUBJECTIVE: The patient did well overnight and has no complaints. She does feel her breathing is a little bit better. She has no pain. Her vitals remained stable. She has remained afebrile. Her heart rate has been good in the 80s to even 70s. Blood pressures been stable. She had much improved urine output with 1600 from the Rodriguez and 325 from the percutaneous nephrostomy tube. She did have a drop in saturations to 92% on room air, but otherwise she is back up to 100%. PHYSICAL EXAMINATION: GENERAL: She is sleeping comfortably in the bed with mild labored breathing. ABDOMEN: Soft, nondistended, nontender. Her percutaneous nephrostomy tube was now draining clear urine and her Rodriguez was still draining clear urine. LABORATORY VALUES: Reveal a white count that is coming down to 18.2, H and H are stable. Her BUN and creatinine have improved significantly with her creatinine now 1.30. Her blood cultures did show gram-positive rods without any sensitivities at this time and aspirate from the kidney also shows gram-positive rods, but no speciation. I reviewed with the patient the idea that I would like to place a ureteral stent before she is discharged in order to try to get the percutaneous nephrostomy tube out, I do not think it is appropriate to do it at this time, I would like her to be more stabilized. We discussed placing this on Tuesday or Tuesday depending on how she does over the weekend. I reviewed the risks and benefits to this, and how the stent would be indwelling and temporary, but she would go home with it and be able to remove the percutaneous nephrostomy at that time and plan stone procedure at a later outpatient procedure time. ASSESSMENT: In assessment, we have a 78-year-old female, status post emergent percutaneous nephrostomy tube for obstructing stone with sepsis with subsequent rapid atrial fibrillation, now corrected; as well as post percutaneous nephrostomy tube bleed, now stable; and tachypnea, likely related to her resolving sepsis. Continue all current treatments and monitor for steady improvement. Anticipate stent placement on Tuesday or Tuesday with the idea of getting the percutaneous nephrostomy tube out before she is discharged home. In addition, I will be off from Tuesday to the and will relay the information about this patient to the on-call coverage. Job ID: [id number]
--- NOTE | 2018-10-05 14:53 | PDOC.CTH ---
Cardiology Progress Note - Subjective EP Progress Note 10/05/18 She seem to be feeling better. Less dyspnic. - Objective Vital Signs Temp Pulse Pulse Resp BP BP BP 10/05/18 10:54 76 149/86 H 145/77 H 10/05/18 10:53 97.1 F L 74 16 163/75 H 10/05/18 08:00 10/05/18 07:28 97.3 F L 74 18 148/76 H 10/05/18 04:24 97.5 F L 76 17 148/84 H Pulse Ox Pulse Ox 10/05/18 10:54 98 10/05/18 10:53 97 10/05/18 08:00 100 10/05/18 07:28 100 10/05/18 04:24 98 Weight 155 lb 3.2 oz 10/04/18 10/05/18 10/06/18 06:59 06:59 06:59 Intake Total 3070 1235 Output Total 780 1925 Balance 2290 -690 - Physical Examination General/Neuro: alert & oriented x3, NAD Neck: carotid US brisk, no JVD present Lungs: CTA Heart: RRR Abdomen: no HSM, soft - Telemetry Telemetry Rhythm: SR - Labs Result Diagrams: 10/05/18 04:11 10/05/18 04:11 - Assessment/Plan 1. Atrial fibrillation and flutter with RVR -on po Amiodarone -s/p DCCV 10/03/18, continue in SR 2. Nephrolithiasis -L>R -s/p left nephrostomy tube and barclay placement 3. QTc prolongation -antibiotics adjusted. - stable on amiodarone 4. A/C diastolic heart failure 5. Renal insufficiency 6. Elevated liver enzymes -[address] - will need continued monitoring of LFTs while on amiodarone 7. CHADS2-VASC: 3 (age, female gender) - lovenox. Consider OAC pre discharge.
[2018-10-06] MEDS: MEROPENEM 1 GM/50 ML 1 GM in Premix Bag 1 BAG IVPB SCH ×3 (05:51→17:45)
--- NOTE | 2018-10-06 08:20 | PDOC.CTH ---
<Katy Brown - Last Filed: 10/06/18 08:20> Cardiology Progress Note - Subjective The pt seen and examined. No overnight events. No cardiac complaints. She is more alerted this AM. - Objective Vital Signs Temp Pulse Resp BP BP Pulse Ox 10/06/18 07:36 97.1 F L 86 22 H 155/65 H 100 10/06/18 03:50 97.3 F L 68 16 149/65 H 100 10/06/18 03:48 100 10/05/18 23:28 97.5 F L 67 18 139/56 L 96 Weight 155 lb 3.2 oz 10/05/18 10/06/18 10/07/18 06:59 06:59 06:59 Intake Total 1235 1190 Output Total 1925 1525 Balance -690 -335 - Physical Examination General/Neuro: alert & oriented x3 Neck: no JVD present Lungs: other: (diminished at bases) Abdomen: soft Extremities: other: (No edema) - Telemetry Telemetry Rhythm: SR 60s - Labs Result Diagrams: 10/05/18 04:11 10/05/18 04:11 - Assessment/Plan 1. Afib and flutter with RVR with S/p DAVIS and DCCV on 10/03/18 - Remains in SR with Amiodarone 200mg TID since 10/03/18 @ 2300; CHADS2-VASC: 3 (age, female gender), but not on OAC at this moment due to s/p nephrostomy tube placement on 10/02/18. Will start OAC when Plant Ecologist is ok. 2. Lt Hydronephrosis with s/p Lt nephrostomy tube placement on 10/02/2018; possible urethral stent placement on Tuesday or Tuesday by Dr De Jesus. 3. Acute on Chronic Diastolic HF - stable; on BBlocker;Will start TI/ARB when her Renal function is more stable. 4. Elevated liver enzymes - [address]; LFT better today. need continued monitoring of LFTs while on amiodarone 5. HTN - stable MAR reviewed Review of Systems - Review of Systems Constitutional: reports: no symptoms reported EENTM: reports: no symptoms reported Respiratory: reports: no symptoms reported Cardiac (ROS): reports: no symptoms reported ABD/GI: reports: no symptoms reported <Mckeon,G Saroj - Last Filed: 10/06/18 14:44> Cardiology Progress Note - Objective Vital Signs Temp Pulse Pulse Resp BP BP BP 10/06/18 13:53 72 142/72 H 133/63 10/06/18 12:08 97.6 F 67 19 10/06/18 07:36 97.1 F L 86 22 H 155/65 H 10/06/18 03:50 97.3 F L 68 16 149/65 H 10/06/18 03:48 BP Pulse Ox 10/06/18 13:53 10/06/18 12:08 140/64 100 10/06/18 07:36 100 10/06/18 03:50 100 10/06/18 03:48 100 Weight 155 lb 3.2 oz 10/05/18 10/06/18 10/07/18 06:59 06:59 06:59 Intake Total 1235 1190 Output Total 1925 1525 Balance -690 335 - Labs Result Diagrams: 10/05/18 04:11 10/05/18 04:11 - Assessment/Plan Pt. seen and eval. by me. I agree with the A/P by the PRINTED CIRCUIT BOARD DRAFTER. Chest clear. RRR. Decrease Amiodarone to bid.
[2018-10-06] MEDS: Amiodarone 200 MG TAB PO SCH ×2 (08:39→20:49)
[2018-10-06] MEDS: Potassium Chloride 20 MEQ TAB PO SCH (08:39)
[2018-10-06] MEDS: Venlafaxine HCl XR 150 MG CAP PO SCH (08:39)
[2018-10-06] MEDS: Multivitamin W/ Minerals 1 TAB PO SCH (08:39)
[2018-10-06] MEDS: Carvedilol 3.125 MG TAB PO SCH ×2 (08:39→17:45)
[2018-10-06] MEDS: Famotidine 20 MG TAB PO SCH (08:39)
[2018-10-06] MEDS: Calcium Carbonate 600 MG TAB PO SCH (08:39)
[2018-10-06] MEDS: Fenofibrate Nanocrystallized 145 MG TAB PO SCH (08:39)
--- NOTE | 2018-10-06 09:26 | PRG ---
DATE OF SERVICE: 10/05/2018 SERVICE: Pulmonary Medicine. INTERVAL HISTORY: The patient looks fantastic today. She is much less toxic and she has good color. She denies any chest pain, fevers, chills, shortness of breath, or dizziness. She is yet to get out of bed. Otherwise, there has been no interval change to her condition. PHYSICAL EXAMINATION: VITAL SIGNS: Afebrile, pulse 97, blood pressure 157/87, respirations 20, and saturation 97% on room air. GENERAL: The patient is awake and alert, in no apparent distress. LUNGS: Excellent air entry with minimal dependent crackles present. HEART: Normal rate, regular. ABDOMEN: Soft, nontender, and nondistended. Bowel sounds are positive. MUSCULOSKELETAL: No cyanosis or clubbing. There is no pitting in the bilateral lower extremities. NEUROLOGIC: Grossly nonfocal. LABORATORY DATA: WBC 18.2, hemoglobin 9.6, and platelets 259,000. Band count is dropping beautifully. Creatinine 1.30, BUN 32. Basic metabolic profile is otherwise unremarkable/stable. Liver function studies including AST and ALT are downtrending. Alkaline phosphatase is up trending gently. Respiratory virus panel, blood cultures and urine culture all unremarkable, other than a gram-positive darrius. ASSESSMENT: 1. Severe sepsis. 2. Pyelonephritis secondary to obstructing stone. 3. Nephrolithiasis, status post percutaneous nephrostomy tube placement. 4. Acute kidney injury, improving. 5. Chronic diastolic heart failure, roughly euvolemic. DISCUSSION/PLAN: The patient is now stable for transition out of the IMCU to the telemetry unit. When she arrives on the floor, she will have no further requirements for inpatient pulmonary critical care opinion, and I will sign off. Please call with additional questions or concerns. Job ID: [id number]
--- NOTE | 2018-10-06 13:39 | PDOC.PN ---
- Subjective Encounter Start Date: 10/06/18 Encounter Start Time: 10:25 Doing better overall. Tolerating drain. No specific complaints today. - Objective Resuscitation Status - Order Detail: 10/01/18 01:28 Resuscitation Status Routine Resuscitation Status: FULL: Full Resuscitation Vital Signs & Weight: Vital Signs (12 hours) Temp Pulse Resp BP BP Pulse Ox 10/06/18 12:08 97.6 F 67 19 140/64 100 10/06/18 07:36 97.1 F L 86 22 H 155/65 H 100 10/06/18 03:50 97.3 F L 68 16 149/65 H 100 10/06/18 03:48 100 Weight Weight 155 lb 3.2 oz I&O: 10/05/18 10/06/18 10/07/18 06:59 06:59 06:59 Intake Total 1235 1190 Output Total 1925 1525 Balance -690 -335 Result Diagrams: 10/05/18 04:11 10/05/18 04:11 Phys Exam - Physical Examination Constitutional: NAD Respiratory: no wheezing, no rales, no rhonchi, clear to auscultation bilateral Cardiovascular: RRR, no significant murmur Gastrointestinal: soft, non-tender, no distention, positive bowel sounds Left perc tube draining. Musculoskeletal: no edema Dx/Plan (1) Bilateral nephrolithiasis Code(s): N20.0 - CALCULUS OF KIDNEY Status: Acute (2) Hydronephrosis of left kidney Code(s): N13.30 - UNSPECIFIED HYDRONEPHROSIS Status: Acute Comment: s/p perc nephrostomy tube 10/02/2018 (3) Sepsis Code(s): A41.9 - SEPSIS, UNSPECIFIED ORGANISM Status: Acute Qualifiers: Sepsis type: sepsis due to unspecified organism Qualified Code(s): A41.9 - Sepsis, unspecified organism (4) UTI (urinary tract infection) Status: Acute Qualifiers: Urinary tract infection type: acute cystitis Hematuria presence: without hematuria Qualified Code(s): N30.00 - Acute cystitis without hematuria (5) Dyslipidemia Code(s): E78.5 - HYPERLIPIDEMIA, UNSPECIFIED Status: Chronic (6) HTN (hypertension) Code(s): I10 - ESSENTIAL (PRIMARY) HYPERTENSION Status: Chronic Qualifiers: Hypertension type: essential hypertension Qualified Code(s): I10 - Essential (primary) hypertension (7) Atrial fibrillation with RVR Code(s): I48.91 - UNSPECIFIED ATRIAL FIBRILLATION Status: Resolved Comment: S/P cardioversion and in NSR. On amiodarone. (8) Transaminitis Code(s): R74.0 - NONSPEC ELEV OF LEVELS OF TRANSAMNS & LACTIC ACID DEHYDRGNSE Status: Acute Comment: Has what appears to be benign hepatic cysts. Improving. - Plan * Continue Meropenem, Amikacin. * Transfer to [facility] when bed available. * Continue to clear infection and address the nephrolithiasis. Urology following.
--- NOTE | 2018-10-06 14:22 | PDOC.CTH ---
Cardiology Progress Note - Subjective EP PROGRESS NOTE 10/06/18 Pt is doing fair. No new events noted. - Objective Vital Signs Temp Pulse Resp BP BP Pulse Ox 10/06/18 12:08 97.6 F 67 19 140/64 100 10/06/18 07:36 97.1 F L 86 22 H 155/65 H 100 10/06/18 03:50 97.3 F L 68 16 149/65 H 100 10/06/18 03:48 100 Weight 155 lb 3.2 oz 10/05/18 10/06/18 10/07/18 06:59 06:59 06:59 Intake Total 1235 1190 Output Total 1925 1525 Balance -690 -335 - Physical Examination General/Neuro: alert & oriented x3, NAD Neck: no JVD present Lungs: CTA Heart: PMI normal, RRR - Telemetry Telemetry Rhythm: SR - Labs Result Diagrams: 10/05/18 04:11 10/05/18 04:11 - Assessment/Plan - Assessment/Plan 1. Atrial fibrillation and flutter with RVR -on po Amiodarone taper. Can go on discharge to 200mg BID for 2 weeks then 200 mg day. -s/p DCCV 10/03/18, continue in SR 2. Nephrolithiasis -L>R -s/p left nephrostomy tube and barclay placement 3. QTc prolongation -antibiotics adjusted. - stable on amiodarone 4. A/C diastolic heart failure 5. Renal insufficiency 6. Elevated liver enzymes - Improving. Not worsened depite amidarone loading. -[address] - will need continued monitoring of LFTs while on amiodarone. 7. CHADS2-VASC: 3 (age, female gender) - lovenox. Consider OAC pre discharge. Stable from EP standpoint. Would sign out for now. Please call if questions. Happy to see her as follow up in 6 weeks.
--- NOTE | 2018-10-06 15:44 | PRG ---
DATE OF SERVICE: 10/06/2018 SERVICE: Pulmonary Medicine. INTERVAL HISTORY: The patient continues to have improved strength. She denies any current chest pain, fevers, chills, nausea, or vomiting. She does not have any shortness of breath. Otherwise, there has been no interval change to her condition. PHYSICAL EXAMINATION: VITAL SIGNS: Afebrile, pulse 67, blood pressure 140/64, respirations 19, and saturation 100% on room air. GENERAL: The patient is awake and alert, in no apparent distress. LUNGS: Excellent air entry with no prolonged expiratory phase. Minimal dependent crackles are present, these are actually improved. HEART: Normal rate and regular. ABDOMEN: Soft, nontender, and nondistended. Bowel sounds are positive. MUSCULOSKELETAL: No cyanosis or clubbing. There is no pitting in the bilateral lower extremities. NEUROLOGIC: Grossly nonfocal. ASSESSMENT: 1. Severe sepsis. 2. Pyelonephritis secondary to obstructing stone. 3. Nephrolithiasis, status post percutaneous nephrostomy tube placement, stent pending. 4. Acute kidney injury, resolving. 5. Chronic diastolic heart failure, euvolemic. 6. Atrial fibrillation with rapid ventricular response, returned to sinus rhythm status post cardioversion. DISCUSSION AND PLAN: The patient remains stable for transition out of the ICU. I will continue to follow in this location. I will repeat some laboratories tomorrow morning including magnesium and phosphorus. We will continue to encourage the patient to mobilize as much as she tolerates and work with physical therapy. Job ID: [id number]
[2018-10-07] MEDS: MEROPENEM 1 GM/50 ML 1 GM in Premix Bag 1 BAG IVPB SCH ×2 (06:27→17:57)
[2018-10-07 06:42] LABS: Chloride 111 mmol/L (98-107); Magnesium 1.4 mg/dL (1.6-2.6); Potassium 4.1 mmol/L (3.5-5.1); Sodium 141 mmol/L (136-145)
[2018-10-07 06:43] LABS: Calcium 8.4 mg/dL (7.8-10.44); Glucose 82 mg/dL (83-110)
[2018-10-07 06:45] LABS: Carbon Dioxide 23 mmol/L (23-31)
[2018-10-07 06:47] LABS: BUN (Urea Nitrogen) 26 mg/dL (9.8-20.1); Calc. Creatinine Clearance 61 mL/min (70-130); Estimated GFR-MDRD 66
[2018-10-07 07:26] LABS: Anion Gap 11 mmol/L (10-20)
[2018-10-07] MEDS: Venlafaxine HCl XR 150 MG CAP PO SCH (08:25)
[2018-10-07] MEDS: Carvedilol 3.125 MG TAB PO SCH (08:25)
[2018-10-07] MEDS: Potassium Chloride 20 MEQ TAB PO SCH (08:25)
[2018-10-07] MEDS: Famotidine 20 MG TAB PO SCH (08:25)
[2018-10-07] MEDS: Multivitamin W/ Minerals 1 TAB PO SCH (08:25)
[2018-10-07] MEDS: Amiodarone 200 MG TAB PO SCH ×2 (08:25→20:07)
[2018-10-07] MEDS: Calcium Carbonate 600 MG TAB PO SCH (08:25)
[2018-10-07] MEDS: Fenofibrate Nanocrystallized 145 MG TAB PO SCH (08:26)
[2018-10-07] MEDS ORDERED: cloNIDine 0.1 MG TAB PO PRN (09:35)
[2018-10-07] MEDS ORDERED: hydrALAZINE 20 MG/ML VIAL SLOW IVP PRN (09:35)
--- NOTE | 2018-10-07 10:45 | PRG ---
DATE OF SERVICE: 10/07/2018 SUBJECTIVE: The patient states she feels fine. She has no complaints. She feels like she may need to have a bowel movement, but wants to get up and walk around, and feels like that will resolve her issue. OBJECTIVE: VITAL SIGNS: T-max is 97.7, pulse 74, respirations 16, O2 saturation 93% to 97% on room air, BP 116/70. GENERAL APPEARANCE: Age-appropriate female. She is sitting up in bed, awake, alert, oriented, pleasant, cooperative, in no distress. Does not appear ill. HEART: Regular rate and rhythm. LUNGS: Reveal a bit of recurrent complex sound in the left anterior upper chest area with some otherwise scattered rales. ABDOMEN: Soft, nontender, and nondistended. Positive bowel sounds. No masses. No organomegaly. EXTREMITIES: No edema. : Notable for the exiting percutaneous nephrostomy tube in the left mid back draining slightly pink urine. LABORATORY DATA: Sodium 141, potassium 4.1, chloride 111, CO2 of 23, BUN 26, creatinine 0.83, magnesium 1.4, phosphorus 3.0. Blood culture from the left arm growing a gram-positive darrius. IMPRESSION AND PLAN: 1. Sepsis, appears to be resolved. She has no systemic inflammatory response symptoms at this point. Continue on antibiotics. No clear source of infection as of yet unidentified. 2. Ureterolithiasis with hydronephrosis. 3. Hydronephrosis of the left kidney, status post percutaneous nephrostomy tube, followed by Urology. 4. Urinary tract infection. The patient remains on broad-spectrum antibiotics with meropenem and amikacin, although urine cultures at this point remain negative and her original urine was somewhat equivocal. The percutaneous drainage fluid was also not consistent with significant infection. 5. Atrial fibrillation with rapid ventricular response. The patient was initially generally quite ill and was in atrial fibrillation with rapid ventricular response. She was loaded with amiodarone, subsequently had direct current cardioversion and has been in sinus rhythm since that time. Continuing with the amiodarone. 6. Transaminitis. The patient has slight elevation in her liver enzymes. Imaging revealed some stable hypodensities of the liver consistent with cysts. We will re-evaluate those in the morning. 7. Hypertension, stable. We will rearrange her p.r.n. medications to include low-dose clonidine. 8. Abnormal lung exam, likely not significant. We will obtain a chest x-ray just to ensure there is no source of infection there. 9. Positive blood culture growing gram-positive darrius. We will continue current antibiotics and await identification and sensitivities. 10. Disposition. Continue deep vein thrombosis and GI prophylaxis and encourage ambulation. Job ID: [id number]
--- NOTE | 2018-10-07 10:46 | RAD ---
TWO VIEWS CHEST: DATE: 10/07/2018. PROVIDED CLINICAL HISTORY: Shortness of breath. FINDINGS: Comparison 10/01/2018. Cardiac and mediastinal silhouette is unchanged in appearance. Prominence of the pulmonary vasculature and pulmonary interstitium. Bilateral pleural effusions with adjacent left basilar atelectasis or infiltrate. No evidence for pneumothorax. Drainage catheter is noted overly ing the left upper quadrant. IMPRESSION: Findings suggesting congestive failure with bilateral pleural effusions. Left basilar subsegmental a telectasis versus infiltrate. POS: [facility]
--- NOTE | 2018-10-07 12:16 | EKG ---
Test Reason : Blood Pressure : / mmHG Vent. Rate : 107 BPM Atrial Rate : 107 BPM P-R Int : 152 ms QRS Dur : 084 ms QT Int : 330 ms P-R-T Axes : 064 -46 064 degrees QTc Int : 440 ms Sinus tachycardia Left axis deviation Abnormal ECG Confirmed by DI DE LA CRUZ, BRAYAN Mancuso ([id number]), tape editor MICKY ATKINSON ([id number]) on 10/07/2018 12:16:08 PM Referred By: Confirmed By:BRAYAN SEVILLA MD
--- NOTE | 2018-10-07 12:58 | PDOC.CTH ---
<StephanieKaty - Last Filed: 10/07/18 13:07> Cardiology Progress Note - Subjective The pt seen and examined. No overnight events. No cardiac complaints. She stated she felt more energy today. - Objective Vital Signs Temp Pulse Resp BP BP Pulse Ox 10/07/18 10:16 169/70 H 10/07/18 08:15 97.7 F 74 16 169/70 H 97 10/07/18 04:42 97.4 F L 71 20 156/70 H 92 L Weight 155 lb 3.2 oz 10/06/18 10/07/18 10/08/18 06:59 06:59 06:59 Intake Total 1190 1185 Output Total 1525 1850 140 Balance -335 -665 -140 - Physical Examination General/Neuro: alert & oriented x3 Neck: no JVD present Lungs: CTA Heart: RRR Abdomen: soft Extremities: other: (No edema) - Telemetry Telemetry Rhythm: SR 70-80s - Labs Result Diagrams: 10/05/18 04:11 10/07/18 04:44 - Assessment/Plan 1. Afib and flutter with RVR with S/p DAVIS and DCCV on 10/03/18 - Remains in SR with Amiodarone 200mg BID since 10/06/18 @ 2100; CHADS2-VASC: 3 (age, female gender), but not on OAC at this moment due to s/p nephrostomy tube placement on 10/02/18. Will start OAC when Iuss Acoustic Analyst is ok. 2. Lt Hydronephrosis with s/p Lt nephrostomy tube placement on 10/02/2018; possible urethral stent placement on Tuesday or Tuesday by Dr De Jesus. 3. Acute on Chronic Diastolic HF - stable; on BBlocker; Will start Lisinopril 10 mg qd from today. 4. Elevated liver enzymes - [address]; normal LFT levels. Need continued monitoring of LFTs while on amiodarone 5. HTN - still elevated after Clonidine PRN was given to the pt this AM. Will start Lisinopril 10mg qd and increase Coreg from 3.125mg to 6.25mg BID from today. MAR reviewed * possible urethral stent placement on Tuesday or Tuesday by Dr De Jesus. Review of Systems - Review of Systems Constitutional: reports: weakness EENTM: reports: no symptoms reported Respiratory: reports: no symptoms reported Cardiac (ROS): reports: no symptoms reported ABD/GI: reports: no symptoms reported : reports: no symptoms reported Musculoskeletal: reports: no symptoms reported <Samson Mckeon - Last Filed: 10/07/18 18:06> Cardiology Progress Note - Objective Vital Signs Temp Pulse Resp BP BP Pulse Ox 10/07/18 14:50 71 156/70 H 10/07/18 13:01 97.7 F 72 18 187/83 H 97 10/07/18 10:16 169/70 H 10/07/18 08:15 97.7 F 74 16 169/70 H 97 Weight 155 lb 3.2 oz 10/06/18 10/07/18 10/08/18 06:59 06:59 06:59 Intake Total 1190 1185 Output Total 1525 1850 790 Balance -335 -665 -790 - Labs Result Diagrams: 10/05/18 04:11 10/07/18 04:44 - Assessment/Plan Pt. seen and eval. by me. I agree with the A/P by the ANGULAR JS DEVELOPER. We have discussed the pt as well as the A/PO. Chest clear. RRR
[2018-10-07] MEDS ORDERED: Carvedilol 3.125 MG TAB PO SCH (13:15)
[2018-10-07] MEDS ORDERED: Lisinopril 10 MG TAB PO SCH (13:30)
--- NOTE | 2018-10-07 15:57 | PRG ---
DATE OF SERVICE: 10/07/2018 SUBJECTIVE: The patient seen and examined today. No overnight events. She denies any pain. OBJECTIVE: VITAL SIGNS: Temperature 97.4, blood pressure 156/70, pulse 71. Rhythm sinus. CARDIOVASCULAR: Regular rate and rhythm. ABDOMEN: Soft and nontender. : Nephrostomy tube, slightly blood-tinged urine. LABORATORY DATA: On 10/07/2018, creatinine 0.83. IMPRESSION: 1. Status post left percutaneous nephrostomy tube for upper ureteral stone with obstruction. Nephrostomy tube is draining well. 2. Dr. De Jesus plans to internalize drainage by left double-J stent placement prior to discharge from the hospital early next week. 3. No new urologic recommendations at this time. Job ID: [id number]
[2018-10-07] MEDS: Carvedilol 6.25 MG TAB PO SCH (17:57)
[2018-10-07] MEDS ORDERED: Magnesium Sulfate 4 GM in Sodium Chloride 0.9% 250 ML 250 ML IVPB SCH (22:30)
--- NOTE | 2018-10-07 23:05 | PRG ---
DATE OF SERVICE: 10/07/2018 SERVICE: Pulmonary Medicine. INTERVAL HISTORY: The patient is doing really well from respiratory standpoint. She denies any current chest pain. She had a little bit of shortness of breath earlier. Otherwise, there has been no interval change to her condition. PHYSICAL EXAMINATION: VITAL SIGNS: Afebrile, pulse 72, blood pressure 182/83, respirations 18, and saturation 97% on room air. GENERAL: The patient is awake and alert, in no apparent distress. LUNGS: Decent air entry. Dependent crackles are noted. There is no prolonged expiratory phase or wheezing appreciated, however. HEART: Normal rate and regular. ABDOMEN: Soft, nontender, and nondistended. Bowel sounds are positive. MUSCULOSKELETAL: No cyanosis or clubbing. There is trace pitting in the bilateral lower extremities. NEUROLOGIC: Grossly nonfocal. LABORATORY DATA: Sodium 141 and stable, bicarb 23, anion gap 11, creatinine 0.83, magnesium 1.4. Phosphorus is 3.0. IMAGING: Chest x-ray demonstrates bilateral pleural effusions. ASSESSMENT: 1. Nephrolithiasis with hydronephrosis, status post percutaneous nephrostomy tube placement. 2. Pyelonephritis. 3. Severe sepsis, resolved. 4. Acute kidney injury, resolved. 5. Chronic diastolic heart failure. 6. Atrial fibrillation with rapid ventricular response, returned to sinus rhythm following cardioversion. DISCUSSION AND PLAN: The patient's magnesium is a touch low. I will replace that. Otherwise, she has cleared her sepsis profile. At this point, she has no further requirements for inpatient Pulmonary Critical Care opinion. In the outpatient setting, repeat chest x-ray should be considered to verify these effusions are resolving. If she deteriorates clinically during this hospital stay or develops increasing respiratory failure, please give me a phone call. Job ID: [id number]
[2018-10-08] MEDS: MEROPENEM 1 GM/50 ML 1 GM in Premix Bag 1 BAG IVPB SCH ×2 (05:02→17:20)
[2018-10-08 06:17] LABS: Anion Gap 12 mmol/L (10-20); BUN (Urea Nitrogen) 22 mg/dL (9.8-20.1); Calc. Creatinine Clearance 63 mL/min (70-130); Calcium 8.9 mg/dL (7.8-10.44); Carbon Dioxide 24 mmol/L (23-31); Chloride 109 mmol/L (98-107); Estimated GFR-MDRD 69; Glucose 90 mg/dL (83-110); Magnesium 2.4 mg/dL (1.6-2.6); Potassium 3.7 mmol/L (3.5-5.1); Sodium 141 mmol/L (136-145)
[2018-10-08 06:22] LABS: ALT (SGPT) 24 U/L (8-55); AST (SGOT) 34 U/L (5-34); Albumin 2.5 g/dL (3.4-4.8); Alkaline Phosphatase 115 U/L (40-150); Bilirubin, Direct 0.4 mg/dL (0.1-0.3); Bilirubin, Total 0.7 mg/dL (0.2-1.2); Protein, Total 6.1 g/dL (6.0-8.3)
[2018-10-08 06:25] LABS: Phosphorus 3.7 mg/dL (2.3-4.7)
[2018-10-08] MEDS: Amiodarone 200 MG TAB PO SCH ×2 (08:17→20:43)
[2018-10-08] MEDS: Carvedilol 6.25 MG TAB PO SCH ×2 (08:17→17:20)
[2018-10-08] MEDS: Lisinopril 10 MG TAB PO SCH (08:18)
[2018-10-08] MEDS: Multivitamin W/ Minerals 1 TAB PO SCH (08:18)
[2018-10-08] MEDS: Famotidine 20 MG TAB PO SCH (08:18)
[2018-10-08] MEDS: Potassium Chloride 20 MEQ TAB PO SCH (08:18)
[2018-10-08] MEDS: Calcium Carbonate 600 MG TAB PO SCH (08:18)
[2018-10-08] MEDS: Venlafaxine HCl XR 150 MG CAP PO SCH (08:19)
[2018-10-08] MEDS: Fenofibrate Nanocrystallized 145 MG TAB PO SCH (08:19)
--- NOTE | 2018-10-08 11:17 | PRG ---
DATE OF SERVICE: 10/08/2018 CHIEF COMPLAINT: No new complaints. Only question is why blood pressure continues to spike. OBJECTIVE: VITAL SIGNS: Most recent, temperature 98.5, pulse 69, O2 saturation 99%, respiratory rate 16, and blood pressure 185/81. ABDOMEN: Soft and nontender. No palpable masses. No peritoneal signs. Left nephrostomy tube draining well. LABORATORY DATA: On 10/08/2018, creatinine is 0.8, CO2 is 24. CBC on 10/05/2018, white blood cell count 18.2, hemoglobin 9.6, and hematocrit 29.0. IMPRESSION: Status post percutaneous nephrostomy tube for obstructed and infected kidney. PLAN: Plan is for internalization of her drainage by double-J stent placement. I will make her n.p.o. and notify Dr. De Jesus in hopes that this can be done tomorrow. Job ID: [id number]
[2018-10-08] MEDS ORDERED: Lisinopril 5 MG TAB PO SCH (13:30)
--- NOTE | 2018-10-08 14:00 | PDOC.CTH ---
<Katy Brown - Last Filed: 10/08/18 14:01> Cardiology Progress Note - Subjective The pt seen and examined. No overnight events. No cardiac complaints. - Objective Vital Signs Temp Pulse Pulse Pulse Resp BP BP 10/08/18 11:25 98.0 F 69 16 10/08/18 09:28 67 66 170/71 H 165/67 H 10/08/18 08:30 10/08/18 08:11 98.5 F 69 16 10/08/18 04:00 97.6 F 62 14 BP Pulse Ox Pulse Ox Pulse Ox 10/08/18 11:25 160/69 H 97 10/08/18 09:28 96 96 10/08/18 08:30 100 10/08/18 08:11 185/81 H 99 10/08/18 04:00 151/70 H 96 Weight 155 lb 3.2 oz 10/07/18 10/08/18 10/09/18 06:59 06:59 06:59 Intake Total 1185 795 Output Total 1850 3290 Balance -665 -2495 - Physical Examination General/Neuro: alert & oriented x3 Neck: no JVD present Lungs: CTA Heart: RRR Abdomen: soft Extremities: other: (No edema) - Telemetry Telemetry Rhythm: SR 60s - Labs Result Diagrams: 10/05/18 04:11 10/08/18 05:20 - Assessment/Plan 1. Afib and flutter with RVR with S/p DAVIS and DCCV on 10/03/18 - Remains in SR with Amiodarone 200mg BID since 10/06/18 @ 2100; CHADS2-VASC: 3 (age, female gender), but not on OAC at this moment due to s/p nephrostomy tube placement on 10/02/18. Will start OAC when Preschool Assistant is ok. 2. Lt Hydronephrosis with s/p Lt nephrostomy tube placement on 10/02/2018 - possible urethral stent placement on Tuesday or Tuesday by Dr De Jesus. 3. Acute on Chronic Diastolic HF - stable; on BBlocker; Will start Lisinopril 10 mg qd from today. 4. Elevated liver enzymes - [address]; normal LFT levels. Need continued monitoring of LFTs while on amiodarone 5. HTN - Will start Norvasc 5mg Qd from this PM MAR reviewed * possible urethral stent placement on Tuesday or Tuesday by Dr De Jesus. Review of Systems - Review of Systems Constitutional: reports: no symptoms reported EENTM: reports: no symptoms reported Respiratory: reports: no symptoms reported Cardiac (ROS): reports: no symptoms reported ABD/GI: reports: no symptoms reported : reports: no symptoms reported <Samson Mckeon - Last Filed: 10/08/18 22:12> Cardiology Progress Note - Objective Vital Signs Temp Pulse Resp BP BP BP Pulse Ox 10/08/18 16:55 97.7 F 65 16 168/74 H 95 10/08/18 14:29 70 160/65 H 10/08/18 11:25 98.0 F 69 16 160/69 H 97 Weight 155 lb 3.2 oz 10/07/18 10/08/18 10/09/18 06:59 06:59 06:59 Intake Total 1185 795 900 Output Total 1850 3290 1300 Balance -816 -2495 -400 - Labs Result Diagrams: 10/05/18 04:11 10/08/18 05:20 - Assessment/Plan Pt. seen and eval. by me. I agree with the A/P by the CROZE CUTTER. No complaints from a cardiac standpoint. Chest clear. RRR.
[2018-10-08] MEDS ORDERED: Amlodipine 5 MG TAB PO SCH (14:15)
--- NOTE | 2018-10-08 14:26 | PDOC.PN ---
- Subjective Encounter Start Date: 10/08/18 Encounter Start Time: 08:20 Feels ok. Breathing well. No complaints. Good appetite. Wants to get up and around more today. - Objective Resuscitation Status - Order Detail: 10/01/18 01:28 Resuscitation Status Routine Resuscitation Status: FULL: Full Resuscitation Vital Signs & Weight: Vital Signs (12 hours) Temp Pulse Pulse Pulse Resp BP BP 10/08/18 11:25 98.0 F 69 16 10/08/18 09:28 67 66 170/71 H 165/67 H 10/08/18 08:30 10/08/18 08:11 98.5 F 69 16 10/08/18 04:00 97.6 F 62 14 BP Pulse Ox Pulse Ox Pulse Ox 10/08/18 11:25 160/69 H 97 10/08/18 09:28 96 96 10/08/18 08:30 100 10/08/18 08:11 185/81 H 99 10/08/18 04:00 151/70 H 96 Weight Weight 155 lb 3.2 oz I&O: 10/07/18 10/08/18 10/09/18 06:59 06:59 06:59 Intake Total 1185 795 Output Total 1850 3290 Balance -770 -9082 Result Diagrams: 10/05/18 04:11 10/08/18 05:20 Phys Exam - Physical Examination Constitutional: NAD Respiratory: no wheezing, no rales, no rhonchi Cardiovascular: RRR, no significant murmur Gastrointestinal: soft, non-tender, no distention, positive bowel sounds Left posterior percutaneous nephrostomy drain in place. Musculoskeletal: no edema Neurological: non-focal Psychiatric: normal affect, A&O x 3 Skin: no rash Dx/Plan (1) Sepsis Code(s): A41.9 - SEPSIS, UNSPECIFIED ORGANISM Status: Resolved Qualifiers: Sepsis type: sepsis due to unspecified organism Qualified Code(s): A41.9 - Sepsis, unspecified organism (2) UTI (urinary tract infection) Status: Ruled-out Qualifiers: Urinary tract infection type: acute cystitis Hematuria presence: without hematuria Qualified Code(s): N30.00 - Acute cystitis without hematuria Comment: Cultures negative. (3) Hydronephrosis of left kidney Code(s): N13.30 - UNSPECIFIED HYDRONEPHROSIS Status: Acute Comment: s/p perc nephrostomy tube 10/02/2018. Plan is to convert to intralumenal uteretral stent/drain 10/09. (4) Bilateral nephrolithiasis Code(s): N20.0 - CALCULUS OF KIDNEY Status: Acute (5) Atrial fibrillation with RVR Code(s): I48.91 - UNSPECIFIED ATRIAL FIBRILLATION Status: Resolved Comment: S/P cardioversion and in NSR. On amiodarone. (6) Dyslipidemia Code(s): E78.5 - HYPERLIPIDEMIA, UNSPECIFIED Status: Chronic (7) HTN (hypertension) Code(s): I10 - ESSENTIAL (PRIMARY) HYPERTENSION Status: Chronic Qualifiers: Hypertension type: essential hypertension Qualified Code(s): I10 - Essential (primary) hypertension (8) Transaminitis Code(s): R74.0 - NONSPEC ELEV OF LEVELS OF TRANSAMNS & LACTIC ACID DEHYDRGNSE Status: Acute Comment: Has what appears to be benign hepatic cysts. Improving. - Plan * Initially appeared septic from UTI with obstructive ureteral stone. Had Perc nephrostomy. Urine cultures negative. * Had perinephric hematoma with drain placement. Appears stable. Avoiding anticoagulation. SCD's * Stable cardiac status. * Ambulate.
[2018-10-08] MEDS ORDERED: Furosemide 20 MG/2 ML VIAL SLOW IVP SCH (18:30)
[2018-10-08] MEDS ORDERED: Potassium Chloride 20 MEQ TAB PO SCH (18:30)
--- NOTE | 2018-10-08 18:49 | PRG ---
DATE OF SERVICE: 10/08/2018 SERVICE: Pulmonary Medicine INTERVAL HISTORY: The patient is doing outstanding from respiratory standpoint. Denies any current chest pain, fevers, or chills. There has been no interval change to her condition. Her strength is improving. She has been up walking around with assistance. OBJECTIVE: VITAL SIGNS: Afebrile, pulse 65, blood pressure 168/74, respirations 16, and saturation 95% on room air. GENERAL: The patient is awake and alert, in no apparent distress. LUNGS: Crackles are present. There is no prolonged expiratory phase or wheezing. HEART: Normal rate, regular. ABDOMEN: Soft, nontender, and nondistended. Bowel sounds are positive. MUSCULOSKELETAL: No cyanosis or clubbing. There is no pitting in the bilateral lower extremities. NEUROLOGIC: Grossly nonfocal. LABORATORY DATA: Liver function studies are essentially unremarkable. Phosphorus 3.7, magnesium 2.4. Basic metabolic profile is otherwise unremarkable except for potassium of 3.7. ASSESSMENT: 1. Nephrolithiasis with hydronephrosis, status post percutaneous nephrostomy tube placement. 2. Pyelonephritis. 3. Severe sepsis, resolved. 4. Acute kidney injury, resolved. 5. Chronic diastolic heart failure. 6. Atrial fibrillation with rapid ventricular response, returned to sinus rhythm following cardioversion. DISCUSSION AND PLAN: I will give the patient one time dose of Lasix. I will also give her a dose of potassium. I will give her a laboratory holiday in the morning. The patient has no further inpatient requirements for Pulmonary Critical Care opinion, and I will sign off. Please call with additional questions or concerns. Job ID: [id number]
[2018-10-09] MEDS: Potassium Chloride 20 MEQ TAB PO SCH (05:18)
[2018-10-09] MEDS: Lisinopril 10 MG TAB PO SCH (05:18)
[2018-10-09] MEDS: MEROPENEM 1 GM/50 ML 1 GM in Premix Bag 1 BAG IVPB SCH ×2 (05:18→17:52)
[2018-10-09] MEDS: Calcium Carbonate 600 MG TAB PO SCH (05:18)
[2018-10-09] MEDS: Multivitamin W/ Minerals 1 TAB PO SCH (05:19)
[2018-10-09] MEDS: Amlodipine 5 MG TAB PO SCH (05:19)
[2018-10-09] MEDS: Famotidine 20 MG TAB PO SCH (05:19)
[2018-10-09] MEDS: Carvedilol 6.25 MG TAB PO SCH ×2 (05:19→17:53)
[2018-10-09] MEDS: Fenofibrate Nanocrystallized 145 MG TAB PO SCH (05:20)
[2018-10-09] MEDS: Amiodarone 200 MG TAB PO SCH ×2 (05:20→19:39)
[2018-10-09] MEDS: Venlafaxine HCl XR 150 MG CAP PO SCH (05:21)
[2018-10-09 06:01] LABS: INR-International Normal Ratio 1.3; PTT 47.1 SEC (22.9-36.1); Prothrombin Time 16.4 SEC (12.0-14.7)
[2018-10-09 06:50] LABS: Anion Gap 9 mmol/L (10-20); BUN (Urea Nitrogen) 21 mg/dL (9.8-20.1); Calc. Creatinine Clearance 62 mL/min (70-130); Carbon Dioxide 28 mmol/L (23-31); Chloride 105 mmol/L (98-107); Estimated GFR-MDRD 67; Glucose 88 mg/dL (83-110); Potassium 3.7 mmol/L (3.5-5.1); Sodium 138 mmol/L (136-145)
--- NOTE | 2018-10-09 10:09 | RAD ---
CHEST 2 VIEWS: Date: 10/09/18 HISTORY: Pleural effusions. COMPARISON: Radiograph dated 10/07/18. FINDINGS: Layering bilateral pleural effusions are similar. Bibasilar air space opacities. No pneumothorax. Cardiac silhouette is similar. Pigtail catheter is incompletely visualized, although appears similar. No acute osseous abnormality. IMPRESSION: Similar appearance of layering effusions. POS: [facility]
[2018-10-09] MEDS ORDERED: Iothalamate Meglumine 60% 50 ML VIAL FS ONE (10:22)
[2018-10-09] MEDS ORDERED: Ondansetron HCl/PF 4 MG/2 ML Vial IVP PRN (11:35)
[2018-10-09] MEDS ORDERED: Promethazine HCl 25 MG/ML VIAL IM PRN (11:35)
[2018-10-09] MEDS ORDERED: Promethazine HCl 25 MG/ML VIAL SLOW IVP PRN (11:35)
--- NOTE | 2018-10-09 11:36 | PDOC.CTH ---
<Katy Brown - Last Filed: 10/09/18 11:34> Cardiology Progress Note - Subjective The pt seen and examined. No overnight events. No cardiac complaints. - Objective Vital Signs Temp Pulse Resp BP BP Pulse Ox 10/09/18 08:55 94 L 10/09/18 07:24 98.0 F 69 15 167/78 H 94 L 10/09/18 05:19 68 170/68 H 10/09/18 05:18 160/65 H 10/09/18 04:00 97.6 F 65 16 170/68 H 95 10/09/18 00:00 66 170/71 H Weight 155 lb 3.2 oz 10/08/18 10/09/18 10/10/18 06:59 06:59 06:59 Intake Total 795 1300 Output Total 3290 4100 Balance -2495 -2800 - Physical Examination General/Neuro: alert & oriented x3 Neck: no JVD present Lungs: CTA Heart: RRR Abdomen: soft Extremities: other: (No edema) - Telemetry Telemetry Rhythm: SR - Labs Result Diagrams: 10/05/18 04:11 10/09/18 05:10 - Assessment/Plan 1. Afib and flutter with RVR with S/p DAVIS and DCCV on 10/03/18 - Remains in SR with Amiodarone 200mg BID since 10/06/18 @ 2100; CHADS2-VASC: 3 (age, female gender), but not on OAC at this moment due to s/p nephrostomy tube placement on 10/02/18. Will start OAC when Heel Reducer is ok. 2. Lt Hydronephrosis with s/p Lt nephrostomy tube placement on 10/02/2018 - Urethral stent placement by Dr De Jesus. 3. Acute on Chronic Diastolic HF - stable; on BBlocker; Will start Lisinopril 10 mg qd from today. 4. Elevated liver enzymes - [address]; normal LFT levels. Need continued monitoring of LFTs while on amiodarone 5. HTN - Will adjust when she comes back from today's procedure. MAR reviewed * Urethral stent placement today by Dr De Jesus. Review of Systems - Review of Systems Constitutional: reports: no symptoms reported EENTM: reports: no symptoms reported Respiratory: reports: no symptoms reported Cardiac (ROS): reports: no symptoms reported ABD/GI: reports: no symptoms reported : reports: no symptoms reported Musculoskeletal: reports: no symptoms reported <Samson Mckeon - Last Filed: 10/09/18 15:51> Cardiology Progress Note - Objective Vital Signs Temp Pulse Resp BP BP Pulse Ox 10/09/18 12:30 97.8 F 68 15 150/67 H 94 L 10/09/18 08:55 94 L 10/09/18 07:24 98.0 F 69 15 167/78 H 94 L 10/09/18 05:19 68 170/68 H 10/09/18 05:18 160/65 H 10/09/18 04:00 97.6 F 65 16 170/68 H 95 Weight 155 lb 3.2 oz 10/08/18 10/09/18 10/10/18 06:59 06:59 06:59 Intake Total 795 1300 Output Total 3290 4100 Balance -2135 -2800 - Labs Result Diagrams: 10/05/18 04:11 10/09/18 05:10 - Assessment/Plan Pt. seen and eval. by me.I agree with the A/P by the FLOOR BROKER. Chest clear. RRR. Back from ureteral stent placement. Tolerated well from a cardiac standpoint.. Cardiac stutus is stable.
--- NOTE | 2018-10-09 15:52 | OP ---
DATE OF PROCEDURE: 10/09/2018 PREOPERATIVE DIAGNOSIS: Left ureteropelvic junction stone with prior sepsis, status post percutaneous tube. POSTOPERATIVE DIAGNOSIS: Left ureteropelvic junction stone with prior sepsis, status post percutaneous tube. PROCEDURES PERFORMED: Cystoscopy, left retrograde pyelogram, insertion of left ureteral stent 6 x 26, and removal of percutaneous nephrostomy tube. ANESTHESIA: General with laryngeal mask airway. FINDINGS: Adequate placement of a 6 x 26 double-J stent in a decompressed system. Adequate removal of the percutaneous tube. SPECIMENS: None. ESTIMATED BLOOD LOSS: None. COMPLICATIONS: None. INDICATIONS FOR PROCEDURE: The patient is a 78-year-old female, who is admitted with sepsis and had an urgent percutaneous tube given obstructing UPJ stone with urinary tract infection. She had multiple complications, but ultimately was stable enough to return for internalization of the stent and removal of the percutaneous tube. DESCRIPTION OF PROCEDURE: The patient was brought into the room by Anesthesia, left on table in supine position. After achieving general anesthetic, the legs were placed in lithotomy position and the perineum was prepped and draped in a sterile fashion. Using a 21-Italian cystoscope and 30-degree lens, the urethra was traversed. The bladder was inspected. No lesions were noted. The left ureteral orifice was intubated with Pollack catheter up to level of the stone, which would not pass, so a wire was used to pass this stone and then the Pollack catheter was advanced beyond the stone and into the renal pelvis. Retrograde pyelogram was performed revealing minimal pelvic component to the collecting system as it was completely decompressed. Then, measurements were taken and a 6 x 26 double-J was placed. The coil was originally in the upper pole, so I pulled this down and then did not want to straight now given her decompressed renal pelvis, but after significant manipulation of the coil, it was able to be adequately coiled in the renal pelvis via fluoroscopy and adequate coil in the bladder via cystoscopy that was noted. At this point, the scope was broken apart, bladder drained and removed in its entirety. Then, attention was turned to the percutaneous nephrostomy tube, where approximately 60 mL of normal saline was gently and slowly irrigated to further irrigate the renal pelvis and potentially any stone fragments in that area to go downward as apposed to remaining in the kidney. At this point, the percutaneous nephrostomy tube was removed in its entirety and a bandage was placed on the patient's back/flank. She was then awakened and transferred to PACU in stable condition. Job ID: [id number] MTDD
--- NOTE | 2018-10-09 17:35 | PRG ---
DATE OF SERVICE: 10/08/2018 SUBJECTIVE: Feeling better. No respiratory symptoms. No abdominal pain. OBJECTIVE: VITAL SIGNS: Temperature max 99.4, BP 168/77, pulse 70, and respirations 15. GENERAL: Awake, alert, oriented. LUNGS: Clear. HEART: S1 and S2. Regular rate. ABDOMEN: Soft, not distended. LABORATORY DATA: White cell count is 18.2 on October 05, has not been repeated since. Chemistry with creatinine 0.82. Cultures with gram-positive rods. Final cultures from the kidney aspirate were not positive. Only a Gram stain identified an organism, which has the appearance of Actinomyces/Nocardia type organism. The patient is currently receiving amikacin and meropenem, and we will go ahead and discontinue amikacin. Continue meropenem alone. PICC line placement and treat for a long period of time. The patient will need eventual lithotripsy for removal of the stone and the treatment will continue beyond the lithotripsy and removal of the stent. Job ID: [id number]
--- NOTE | 2018-10-09 20:25 | PRG ---
DATE OF SERVICE: 10/09/2018 SUBJECTIVE: The patient is feeling well today. She did have her stent internalized today. She did well with that, she is not having any pain. She reports she got up a bit on the side of the bed yesterday, but did not get up around much, but looks forward to trying to be able to do that today. OBJECTIVE: VITAL SIGNS: Stable. HEART: Regular without murmurs, gallops, or rubs. LUNGS: Clear bilaterally with good chest wall expansion and air exchange. ABDOMEN: Soft and nontender. Very mild tenderness in the left lower quadrant area. EXTREMITIES: Warm and dry with no edema. IMPRESSION AND PLAN: 1. Left ureterolithiasis with hydronephrosis status post percutaneous nephrostomy tube converted to internal ureteral stent today with removal of the percutaneous nephrostomy. The patient is reporting some mild spasm of the urinary tract as it is not uncommon. Otherwise, she is doing well. 2. Hypertension, stable. 3. Atrial fibrillation with rapid ventricular response. The patient is now converted to sinus rhythm after direct current cardioversion and is stable from that perspective. 4. Possible urinary tract infection. However, at this point, cultures remain negative. 5. Disposition. We will go ahead and try to focus on getting the patient up and around a bit more today. If she does well with that, anticipate she can likely discharge tomorrow. Job ID: [id number]
[2018-10-10] MEDS: MEROPENEM 1 GM/50 ML 1 GM in Premix Bag 1 BAG IVPB SCH ×2 (05:28→17:46)
[2018-10-10 06:06] LABS: Anion Gap 12 mmol/L (10-20); BUN (Urea Nitrogen) 26 mg/dL (9.8-20.1); Calc. Creatinine Clearance 57 mL/min (70-130); Calcium 8.8 mg/dL (7.8-10.44); Carbon Dioxide 22 mmol/L (23-31); Chloride 106 mmol/L (98-107); Estimated GFR-MDRD 67; Glucose 86 mg/dL (83-110); Potassium 4.4 mmol/L (3.5-5.1); Sodium 136 mmol/L (136-145)
--- NOTE | 2018-10-10 08:09 | PDOC.CTH ---
<Katy Brown - Last Filed: 10/10/18 08:11> Cardiology Progress Note - Subjective The pt seen and examined. No overnight events. No cardiac complaints. - Objective Vital Signs Temp Pulse Resp BP Pulse Ox 10/10/18 07:51 99.2 F 71 16 155/70 H 96 10/10/18 04:00 97.9 F 66 16 140/65 99 Weight 144 lb 10/09/18 10/10/18 10/11/18 06:59 06:59 06:59 Intake Total 1300 200 Output Total 4100 1450 Balance -2800 -1250 - Physical Examination General/Neuro: alert & oriented x3 Neck: no JVD present Lungs: CTA Heart: RRR Abdomen: soft Extremities: other: (No edema) - Telemetry Telemetry Rhythm: SR 60s - Labs Result Diagrams: 10/05/18 04:11 10/10/18 04:58 - Assessment/Plan 1. Afib and flutter with RVR with S/p DAVIS and DCCV on 10/03/18 - Remains in SR with Amiodarone 200mg BID since 10/06/18 @ 2100; CHADS2-VASC: 3 (age, female gender), but not on OAC at this moment due to s/p nephrostomy tube placement on 10/02/18. Will start OAC when [employer] is ok. 2. Lt Hydronephrosis with s/p internal urethral stent placement and Lt nephrostomy tube removed on 10/09/2018. 3. Acute on Chronic Diastolic HF - stable; on BBlocker and TI. May start diuretic if possible. 4. Elevated liver enzymes - [address]; normal LFT levels. Need continued monitoring of LFTs while on amiodarone 5. HTN - Increase Lisinopril 10mg from qd to BID. MAR reviewed * From cardiac standpoint, the pt is stable to tx to rehab/home. The pt will f/ u with Dr Mckeon' office within 10 days. * Will start OAC when [employer] is ok. * Amiodarone dosage adjustment: 200mg PO BID for 2wks (started at 2100 on ) then change to 200mg qd (There is Drug interaction between Amiodarone and Effxor. OK by pharmacy) Review of Systems - Review of Systems Constitutional: reports: weakness EENTM: reports: no symptoms reported Respiratory: reports: no symptoms reported Cardiac (ROS): reports: no symptoms reported ABD/GI: reports: no symptoms reported : reports: no symptoms reported Musculoskeletal: reports: no symptoms reported <Samson Mckeon - Last Filed: 10/10/18 21:02> Cardiology Progress Note - Objective Vital Signs Temp Pulse Resp BP BP Pulse Ox 10/10/18 20:42 138/64 10/10/18 15:33 97.1 F L 66 16 148/67 H 96 10/10/18 11:46 97.2 F L 67 16 153/70 H 96 Weight 144 lb 10/09/18 10/10/18 10/11/18 06:59 06:59 06:59 Intake Total 1300 200 Output Total 4100 1450 Balance -2800 -1250 - Labs Result Diagrams: 10/05/18 04:11 10/10/18 04:58 - Assessment/Plan Pt. seen and eval.I agree with the A/P by the LINEMAN. She denies any cardiac complaints. Maintaining NSR. Chst clear. RRR. No edema. Review of Systems - Review of Systems Cardiac (ROS): reports: lightheadedness
[2018-10-10] MEDS: Famotidine 20 MG TAB PO SCH (08:46)
[2018-10-10] MEDS: Multivitamin W/ Minerals 1 TAB PO SCH (08:46)
[2018-10-10] MEDS: Venlafaxine HCl XR 150 MG CAP PO SCH (08:46)
[2018-10-10] MEDS: Fenofibrate Nanocrystallized 145 MG TAB PO SCH (08:46)
[2018-10-10] MEDS: Amlodipine 5 MG TAB PO SCH (08:46)
[2018-10-10] MEDS: Carvedilol 6.25 MG TAB PO SCH ×2 (08:47→17:45)
[2018-10-10] MEDS: Calcium Carbonate 600 MG TAB PO SCH (08:47)
[2018-10-10] MEDS: Lisinopril 10 MG TAB PO SCH ×2 (08:47→20:42)
[2018-10-10] MEDS: Potassium Chloride 20 MEQ TAB PO SCH (08:47)
[2018-10-10] MEDS ORDERED: Amiodarone 200 MG TAB PO SCH (10:00)
--- NOTE | 2018-10-10 10:41 | SPC ---
PICC PLACEMENT ULTRASOUND GUIDED VENOUS ACCESS: (Peripherally Inserted Central Catheter) DATE: HISTORY: 78-year-old female requiring long-term IV antibiotics for left sided pyelonephritis. TECHNIQUE: Catheter caliber: 5 [place]err[place]ian Catheter lumen number: Single Catheter tip location: Superior vena cava/right atrial junction Vein accessed: Left basilic Signed, informed consent was obtained. A tourniquet was applied at the proximal aspect of the arm. The arm was prepared and draped in the usual sterile fashion. A 25 gauge needle was used to apply bu ffered lidocaine superficially. The vein was punctured with a 21 gauge micropuncture needle under ul trasound guidance. A 0.018 inch guide wire was advanced through the micropuncture needle and into th e vein. Under fluoroscopic guidance, the guide wire was advanced to the right atrium. The PICC (per ipherally inserted central catheter) was flushed and trimmed to the appropriate length. The skin pun cture hole was widened with a blade. The micropuncture needle was exchanged over the guide wire for a 5 [place]serratian peel-away dilator sheath. The dilator was exchanged over the guide wire for the PICC, whi ch was then further advanced under fluoroscopy. The sheath and guide wire were removed. The PICC wa s flushed again and secured in place at the arm. The patient tolerated the procedure well. There wa s no complication. IMPRESSION: Successful placement of PICC (peripherally inserted central catheter) linda POS: [facility]
--- NOTE | 2018-10-10 11:47 | PRG ---
DATE OF SERVICE: 10/10/2018 SUBJECTIVE: The patient feels well. She is no longer having any spasms after the stent placement. She has no complaints today. OBJECTIVE: VITAL SIGNS: T-max 99.2, pulse 71, respirations 16, blood pressure 155/70, and she is 96% on room air. GENERAL APPEARANCE: Age-appropriate female, in no distress. She is awake, alert, oriented, pleasant, and cooperative. HEART: Regular rate and rhythm without murmurs. LUNGS: Clear bilaterally. ABDOMEN: Soft, nontender, and nondistended. Positive bowel sounds. EXTREMITIES: Warm and dry. LABORATORY DATA: Sodium 136, potassium 4.4, chloride 106, CO2 of 22, BUN 26, creatinine 0.82, glucose 86, and calcium 8.8. 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 IMPRESSION AND PLAN: 1. Left hydronephrosis secondary to ureterolithiasis. The patient had a percutaneous nephrostomy tube placed that has now been removed in lieu of an internal ureteral stent. She is tolerating that well. 2. Positive blood culture with GPR 3. 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 Dr. Draper has recommended PICC line, which has been placed and a long course of IV meropenem. I talked to Case Management and trying to figure out the best setting for that to occur. 3. Hypertension, stable. 4. Atrial fibrillation with rapid ventricular response. She was cardioverted and has remained in stable sinus rhythm. DISPOSITION: The patient has some generalized weakness. She has been attempting to get up and around for last several days, but has not been able to do much of that. She has been referred for a rehab evaluation. If she goes to inpatient rehab, she can continue her IV antibiotics there. Discussed with Dr. Draper. Will need meropenem til the end of September. Job ID: [id number] [facility]
--- NOTE | 2018-10-10 12:09 | PRG ---
DATE OF SERVICE: 10/10/2018 SUBJECTIVE: The patient is sleeping comfortably, but easily arouses. She has no complaints. She is voiding without difficulty. She denies any stent/voiding discomfort. She does have some incontinence which she had prior to this hospitalization as well. OBJECTIVE: VITAL SIGNS: Her T-max is 99.2 with that being the current. Her blood pressure has been elevated with the last check 155/70, saturating 96% on room air with heart rate in the 60s to 70s. GENERAL: She is comfortable in the bed without any complaints. LABORATORY DATA: Labs show creatinine is 0.82, which is stable. Cultures show gram-positive rods in the blood, but none of the cultures from the urine even the one from [facility] shows any positive culture in the urine, but I suspect that these were obtained after antibiotics, gram-positive rods were noted in the aspirate that was obtained from the urine from the percutaneous tube. ASSESSMENT AND PLAN: In assessment, we have a 78-year-old female admitted with sepsis from obstructing stone, status post emergent percutaneous tube with subsequent problems to include rapid atrial fibrillation, status post cardioversion, bleed from the percutaneous tube internally, status post transfusion. She now had her percutaneous nephrostomy tube removed because she has an internal indwelling ureteral stent as of 10/09/2018. We reviewed how ultimately she can be discharged and follow up in the office to discuss definitive stone therapy which would include ureteroscopy and ESWL in order to try to minimize her stone burden on the left. Job ID: [id number] MTDD
[2018-10-10] MEDS: Amiodarone 200 MG TAB PO SCH (20:42)
[2018-10-11] MEDS: MEROPENEM 1 GM/50 ML 1 GM in Premix Bag 1 BAG IVPB SCH ×2 (05:33→17:12)
[2018-10-11 06:01] LABS: Anion Gap 12 mmol/L (10-20); BUN (Urea Nitrogen) 25 mg/dL (9.8-20.1); Calc. Creatinine Clearance 62 mL/min (70-130); Calcium 9.2 mg/dL (7.8-10.44); Carbon Dioxide 25 mmol/L (23-31); Chloride 105 mmol/L (98-107); Estimated GFR-MDRD 73; Glucose 75 mg/dL (83-110); Potassium 3.6 mmol/L (3.5-5.1); Sodium 138 mmol/L (136-145)
--- NOTE | 2018-10-11 08:22 | PDOC.CTH ---
<Katy Brown - Last Filed: 10/11/18 11:47> Cardiology Progress Note - Subjective The pt seen and examined. No overnight events. No cardiac complaints. - Objective Vital Signs Temp Pulse Resp BP BP Pulse Ox 10/11/18 04:00 97.4 F L 64 16 161/74 H 94 L 10/10/18 20:42 138/64 Weight 144 lb 10/10/18 10/11/18 10/12/18 06:59 06:59 06:59 Intake Total 200 350 Output Total 1450 700 Balance -1250 -350 - Physical Examination General/Neuro: alert & oriented x3 Neck: no JVD present Lungs: CTA Heart: RRR Abdomen: soft Extremities: other: (No edema) - Telemetry Telemetry Rhythm: SR 60s - Labs Result Diagrams: 10/05/18 04:11 10/11/18 04:54 - Assessment/Plan 1. Afib and flutter with RVR with S/p DAVIS and DCCV on 10/03/18 - Remains in SR with Amiodarone 200mg BID since 10/06/18 @ 2100; CHADS2-VASC: 3 (age, female gender), but not on OAC at this moment due to s/p nephrostomy tube placement on 10/02/18. Will start OAC when Hhas is ok. 2. Lt Hydronephrosis with s/p internal urethral stent placement and Lt nephrostomy tube removed on 10/09/2018. 3. Acute on Chronic Diastolic HF - stable; on BBlocker and TI. May start diuretic if needed. 4. Elevated liver enzymes - [address]; normal LFT levels. Need continued monitoring of LFTs while on amiodarone 5. HTN - Increase Norvasc from 5mg qd to 10mg qd from today. MAR reviewed * From cardiac standpoint, the pt is stable to tx to rehab/home. The pt will f/ u with Dr Mckeon' office within 10 days. * Will start OAC when Hhas is ok (may start ASA). * Amiodarone dosage adjustment: 200mg PO BID for 2wks (started at 2100 on ) then change to 200mg qd (There is Drug interaction between Amiodarone and Effxor, which is OK by pharmacy) Review of Systems - Review of Systems Constitutional: reports: no symptoms reported EENTM: reports: no symptoms reported Respiratory: reports: no symptoms reported Cardiac (ROS): reports: no symptoms reported ABD/GI: reports: no symptoms reported : reports: no symptoms reported <Samson Mckeon - Last Filed: 10/11/18 13:02> Cardiology Progress Note - Objective Vital Signs Temp Pulse Pulse Pulse Resp BP BP 10/11/18 08:56 81 65 190/81 H 160/70 H 10/11/18 08:17 98.4 F 61 18 10/11/18 08:00 10/11/18 04:00 97.4 F L 64 16 BP Pulse Ox Pulse Ox Pulse Ox 10/11/18 08:56 94 L 94 L 10/11/18 08:17 187/81 H 97 10/11/18 08:00 97 10/11/18 04:00 161/74 H 94 L Admit Weight 155 lb 3.2 oz Weight 144 lb 10/10/18 10/11/18 10/12/18 06:59 06:59 06:59 Intake Total 200 350 Output Total 1450 700 Balance -1250 -350 - Labs Result Diagrams: 10/05/18 04:11 10/11/18 04:54 - Assessment/Plan Pt.seen and eval.by me.I agree with the A\P by the MANAGER RAIL. The BP is trending upwards.Add nitrates.No cardiac complaints.
[2018-10-11] MEDS: Fenofibrate Nanocrystallized 145 MG TAB PO SCH (09:25)
[2018-10-11] MEDS: Potassium Chloride 20 MEQ TAB PO SCH (09:25)
[2018-10-11] MEDS: Carvedilol 6.25 MG TAB PO SCH ×2 (09:25→17:12)
[2018-10-11] MEDS: Venlafaxine HCl XR 150 MG CAP PO SCH (09:26)
[2018-10-11] MEDS: Multivitamin W/ Minerals 1 TAB PO SCH (09:26)
[2018-10-11] MEDS: Amiodarone 200 MG TAB PO SCH (09:26)
[2018-10-11] MEDS: Lisinopril 10 MG TAB PO SCH (09:26)
[2018-10-11] MEDS: Famotidine 20 MG TAB PO SCH (09:26)
[2018-10-11] MEDS: Amlodipine 5 MG TAB PO SCH (09:27)
[2018-10-11] MEDS: Calcium Carbonate 600 MG TAB PO SCH (09:33)
--- NOTE | 2018-10-11 11:15 | PDOC.PN ---
- Subjective Encounter Start Date: 10/11/18 Encounter Start Time: 10:00 Subjective: awake and oriented well, no sob or chest pain or palp -: amb with PT yesterday -: no abd pain or nausea - Objective Resuscitation Status - Order Detail: 10/01/18 01:28 Resuscitation Status Routine Resuscitation Status: FULL: Full Resuscitation MAR Reviewed: Yes Vital Signs & Weight: Vital Signs (12 hours) Temp Pulse Resp BP Pulse Ox 10/11/18 08:17 98.4 F 61 18 187/81 H 97 10/11/18 04:00 97.4 F L 64 16 161/74 H 94 L Weight Weight 144 lb I&O: 10/10/18 10/11/18 10/12/18 06:59 06:59 06:59 Intake Total 200 350 Output Total 1450 700 Balance -1250 -350 Result Diagrams: 10/05/18 04:11 10/11/18 04:54 Phys Exam - Physical Examination HEENT: PERRLA, moist MMs Neck: no JVD, supple Respiratory: no wheezing, no rales Cardiovascular: RRR, no significant murmur Gastrointestinal: soft, non-tender, positive bowel sounds Musculoskeletal: no edema, pulses present Neurological: non-focal, moves all 4 limbs Psychiatric: normal affect, A&O x 3 Dx/Plan (1) Atrial fibrillation with RVR Code(s): I48.91 - UNSPECIFIED ATRIAL FIBRILLATION Status: Resolved Comment: S/P cardioversion 10/09/18 and in NSR. On amiodarone. (2) Sepsis Code(s): A41.9 - SEPSIS, UNSPECIFIED ORGANISM Status: Resolved Qualifiers: Sepsis type: sepsis due to unspecified organism Qualified Code(s): A41.9 - Sepsis, unspecified organism (3) UTI (urinary tract infection) Status: Acute Qualifiers: Urinary tract infection type: acute cystitis Hematuria presence: with hematuria Qualified Code(s): N30.01 - Acute cystitis with hematuria Comment: Cultures negative. (4) HTN (hypertension) Code(s): I10 - ESSENTIAL (PRIMARY) HYPERTENSION Status: Chronic Qualifiers: Hypertension type: essential hypertension Qualified Code(s): I10 - Essential (primary) hypertension (5) Dyslipidemia Code(s): E78.5 - HYPERLIPIDEMIA, UNSPECIFIED Status: Chronic (6) Acute blood loss anemia Code(s): D62 - ACUTE POSTHEMORRHAGIC ANEMIA Status: Resolved (7) Hydronephrosis of left kidney Code(s): N13.30 - UNSPECIFIED HYDRONEPHROSIS Status: Resolved Comment: s/p perc nephrostomy tube 10/02/2018 and removal with placement of stent 10/09. (8) Bilateral nephrolithiasis Code(s): N20.0 - CALCULUS OF KIDNEY Status: Acute (9) Acute encephalopathy Code(s): G93.40 - ENCEPHALOPATHY, UNSPECIFIED Status: Resolved (10) Bacteremia Code(s): R78.81 - BACTEREMIA Status: Acute - Plan is on meropenem, has picc line -: amiodarone 200mg bid till then once daily -: awaiting rehab placement -: d/w patient and at bedside -: to ambulate more with PT as tolerated * . Review of Systems - Medications/Allergies Allergies/Adverse Reactions: Allergies Allergy/AdvReac Type Severity Reaction Status Date / Time Penicillins Allergy Verified 09/30/18 19:54 Medications: Current Medications Acetaminophen (Tylenol) 325 mg PO DAILYPRN PRN PRN Reason: Headache Last Admin: 10/01/18 05:56 Dose: 325 mg Acetaminophen (Tylenol) 650 mg PO Q6H PRN PRN Reason: fever/pain Last Admin: 10/03/18 02:24 Dose: 650 mg Amiodarone HCl (Cordarone) 200 mg PO BID [facility] Stop: 10/20/18 21:01 Last Admin: 10/11/18 09:26 Dose: 200 mg Amiodarone HCl (Cordarone) 200 mg PO DAILY [facility] Amlodipine Besylate (Norvasc) 5 mg PO DAILY [facility] Last Admin: 10/11/18 09:27 Dose: 5 mg Bisacodyl (Dulcolax) 10 mg PO DAILYPRN PRN PRN Reason: Constipation Calcium Carbonate (Caltrate) 600 mg PO DAILY [facility] Last Admin: 10/11/18 09:33 Dose: 600 mg Calcium Carbonate (Tums) 1,000 mg PO Q4H PRN PRN Reason: Heartburn or Indigestion Carvedilol (Coreg) 6.25 mg PO BID[facility] Last Admin: 10/11/18 09:25 Dose: 6.25 mg Clonidine (Catapres) 0.1 mg PO Q4H PRN PRN Reason: Blood Pressure Last Admin: 10/07/18 10:16 Dose: 0.1 mg Famotidine (Pepcid) 20 mg PO DAILY [facility] Last Admin: 10/11/18 09:26 Dose: 20 mg Fenofibrate (Tricor) 145 mg PO DAILY [facility] Last Admin: 10/11/18 09:25 Dose: 145 mg Hydralazine HCl (Apresoline) 10 mg SLOW IVP Q4H PRN PRN Reason: Blood Pressure Meropenem 1 gm/ Device 50 mls @ 100 mls/hr IVPB 0600,1800 [facility] Last Admin: 10/11/18 05:33 Dose: 50 mls Iron/Minerals/Multivitamins (Theragran M) 1 tab PO DAILY [facility] Last Admin: 10/11/18 09:26 Dose: 1 tab Lisinopril (Zestril) 10 mg PO BID [facility] Last Admin: 10/11/18 09:26 Dose: 10 mg Miscellaneous Medication (Pharmacy To Dose) 0 each IVPB PRN PRN PRN Reason: AZACTAM Pharmacy to Dose Ondansetron HCl (Zofran Odt) 4 mg PO Q6H PRN PRN Reason: Nausea Potassium Chloride (K-Dur) 20 meq PO QAM-WM [facility] Last Admin: 10/11/18 09:25 Dose: 20 meq Senna/Docusate Sodium (Senokot S) 2 tab PO BIDPRN PRN PRN Reason: Constipation Sodium Chloride (Flush - Normal Saline) 10 ml IVF Q12HR [facility] Last Admin: 10/11/18 09:33 Dose: 10 ml Sodium Chloride (Flush - Normal Saline) 10 ml IVF PRN PRN PRN Reason: Saline Flush Venlafaxine HCl (Effexor Xr) 150 mg PO DAILY [facility] Last Admin: 10/11/18 09:26 Dose: 150 mg Zolpidem Tartrate (Ambien) 5 mg PO HSPRN PRN PRN Reason: Insomnia
[2018-10-11 12:23] VITALS: BMI 23.2
[2018-10-11] MEDS ORDERED: Amlodipine 5 MG TAB PO SCH (12:30)
[2018-10-11 14:49] VITALS: TEMP 97.9
[2018-10-11 16:45] LABS: #Eosinphils 0.1 thou/uL (0.0-0.7); #Lymphocytes 0.7 thou/uL (1.20-3.40); #Monocytes 1.1 thou/uL (0.11-0.59); #Neutrophils 7.4 thou/uL (1.40-6.50); %Basophils 0.3 % (0.0-1.0); %Eosinophils 0.6 % (0.0-10.0); %Lymphocytes 7.9 % (21.0-51.0); %Monocytes 12.3 % (0.0-10.0); Mean Corpuscular HGB CONC 31.4 g/dL (32.0-36.0); Mean Corpuscular Hemoglobin 28.8 pg (27.0-31.0); Mean Corpuscular Volume 91.8 fL (78.0-98.0); Platelet Count 429 thou/uL (130-400); RBC Distribution Width 13.5 % (11.5-14.5); Red Blood Cell (RBC) Count 3.48 mill/uL (4.20-5.40); White Blood Cell (WBC) Count 9.3 thou/uL (4.8-10.8)
[2018-10-11 17:12] VITALS: BP 138/64
[2018-10-11] MEDS ORDERED: Isosorbide Dinitrate 5 MG TAB PO SCH (21:00)
--- NOTE | 2018-10-12 08:00 | DIS ---
DATE OF ADMISSION: 09/30/2018 DATE OF DISCHARGE: 10/11/2018 DISCHARGE DISPOSITION: Inpatient rehab. PRIMARY DISCHARGE DIAGNOSES: Sepsis; urinary tract infection; left hydronephrosis secondary to nephrolithiasis, status post ureteral stent; atrial fibrillation with rapid ventricular response, status post cardioversion, in normal sinus rhythm; acute blood loss anemia secondary to bleeding around the percutaneous nephrostomy tube, resolved; acute encephalopathy on arrival, resolved. PROCEDURES DONE DURING HOSPITALIZATION: The patient had CT angio chest done on the day of admission, which showed no evidence of PE. She has had CT of the abdomen and pelvis without contrast showed 13-mm calculus, large, at the left ureteropelvic junction causing obstructive uropathy with moderate left hydronephrosis. There was also edema around the left renal sinus. There was bilateral nephrolithiasis, left greater than right. Echo with 2D Doppler showed EF of 60% to 65%. No signs of LVH. Left atrial size was normal. The patient had cardioversion done on 10/03/2018, for atrial fibrillation with the patient in sinus rhythm since then. She had repeat CT of the abdomen and pelvis done on the , due to a drop in hemoglobin, which showed perinephric hematoma extending along the left retroperitoneal space. There was also evidence of complex fluid in the pelvis. There was some mass effect seen on the left kidney with anterior displacement. The patient had placement of percutaneous nephrostomy tube on the left side by Interventional Radiology on 10/02/2018. The patient had cystoscopy with placement of left ureteral stent 6 x 26 mm, it is a double-J stent, and removal of percutaneous nephrostomy tube done by Dr. De Jesus. Blood culture / grew gram-positive darrius. There was further workup on this isolate, which was sent to [facility] for identification. There was no growth seen till the patient was discharged from here. Respiratory virus panel PCR was negative. Aspiration from the left kidney showed moderate gram-positive beaded branching darrius. Few gram-variable rods were seen. H and H 9 and 29, platelet count 259. Discharge BUN and creatinine are 25 and 0.7. DISCHARGE MEDICATIONS: 1. Meropenem 1 g q.12 hourly till the end of this month or until the patient has definitive treatment for her stones with removal of stent on the left side. 2. Flomax 0.4 mg daily. 3. Lisinopril 10 mg twice daily. 4. Coreg 6.25 mg twice daily. 5. Norvasc 10 mg daily. 6. Amiodarone 200 mg twice daily till the and switch to daily after that. 7. Multivitamin one tab once daily. 8. TriCor 145 mg p.o. daily. 9. Pristiq 100 mg extended release daily. 10. Aspirin 81 mg p.o. daily. ALLERGIES: PENICILLIN. INPATIENT CONSULTS: Dr. Mckeon for Cardiology, Dr. De Jesus for Urology, Dr. Jara for Electrophysiology, and Dr. Draper for Infectious Disease. DISCHARGE PLAN: The patient is to follow up with Dr. De Jesus, urologist, as advised. BRIEF COURSE DURING HOSPITALIZATION: The patient initially came to ER with complaints of fever. She was hospitalized at [facility] prior to arrival here for two days and was sent home on Levaquin for urinary tract infection. The patient had a fever of 102 on arrival. Pancultures were obtained, and the patient was admitted for sepsis. Overnight, the patient went into atrial fibrillation with RVR and had to be upgraded to IMCU. The patient also had a CAT scan done, which revealed left-sided hydronephrosis with nephrolithiasis. She has had consultation with Dr. De Jesus for Urology and Dr. Mckeon for Cardiology. The patient was septic and was unstable. Interventional Radiology was asked to place percutaneous nephrostomy tube. The patient also had cardioversion done on the , for atrial fibrillation and since then has been in sinus rhythm. She has had removal of percutaneous nephrostomy tube and placement of stent with cystoscopy done by Dr. D eJesus on the . She was ambulated nearly 140 feet with physical therapy. Due to further deconditioning, the patient is being discharged to inpatient rehab for further recuperation prior to going home. Please note, the patient has a stent on the left ureter and also needs lithotripsy/procedures for her stone per Dr. De Jesus's advice in the near future. The patient's aspirate from the kidney grew gram-positive beaded branching rods and is suspicious for either Nocardia or Actinomyces. Further workup on this culture is pending at the time of discharge. It is a send-out lab. She has been placed on meropenem per Dr. Draper' advice. The patient has had a PICC line placed, and she has been accepted to inpatient rehab and will be shortly discharged there. Please see a [id number] documentation for the day of discharge on [employer]. A total of 35 minutes was spent on discharge plan. Job ID: [id number]
[2018-10-12] MEDS ORDERED: Amlodipine 10 MG TAB PO SCH (09:00)
[2018-10-13] MEDS ORDERED: Heparin 1,000 UNITS/ML VIAL ONE (13:41)
[2018-10-21] MEDS ORDERED: Amiodarone 200 MG TAB PO SCH (09:00)
== END 2018-10-11 19:50 | DRG 853 ==
LOC: SCSER 14:22 → IMCU/EMU 15:58 → SCSER 18:14 → T4-B 10-01 11:06 → IMCU/EMU 10-01 19:24 → 2NO 10-06 20:20
PROVIDERS: ADMIT Internal Medicine; ATTEND Internal Medicine
PROC: 0T9130Z Drainage of Left Kidney with Drainage Device, Percutaneous Approach (ICD-10-PCS; principal; 2018-10-02)
PROC: 5A2204Z Restoration of Cardiac Rhythm, Single (ICD-10-PCS; 2018-10-03)
PROC: 30233N1 Transfusion of Nonautologous Red Blood Cells into Peripheral Vein, Percutaneous Approach (ICD-10-PCS; 2018-10-03)
PROC: 0T778DZ Dilation of Left Ureter with Intraluminal Device, Via Natural or Artificial Opening Endoscopic (ICD-10-PCS; 2018-10-09)
PROC: 0TP5X0Z Removal of Drainage Device from Kidney, External Approach (ICD-10-PCS; 2018-10-09)
PROC: 02HV33Z Insertion of Infusion Device into Superior Vena Cava, Percutaneous Approach (ICD-10-PCS; 2018-10-10)
DX: A41.9 Sepsis, unspecified organism (principal); I50.33 Acute on chronic diastolic (congestive) heart failure; N17.9 Acute kidney failure, unspecified; N13.6 Pyonephrosis; E87.2 Acidosis; I48.92 Unspecified atrial flutter; I13.0 Hypertensive heart and chronic kidney disease with heart failure and stage 1 through stage 4 chronic kidney disease, or unspecified chronic kidney disease; D62 Acute posthemorrhagic anemia; G93.40 Encephalopathy, unspecified; I48.91 Unspecified atrial fibrillation; R65.20 Severe sepsis without septic shock; B96.89 Other specified bacterial agents as the cause of diseases classified elsewhere; K76.89 Other specified diseases of liver; E86.0 Dehydration; N18.9 Chronic kidney disease, unspecified; E78.5 Hyperlipidemia, unspecified; M06.9 Rheumatoid arthritis, unspecified; F41.9 Anxiety disorder, unspecified; Z79.82 Long term (current) use of aspirin; Z88.0 Allergy status to penicillin
CPT/HCPCS: 36415; 36416; 36430; 36569; 51600; 51701; 71045; 71046; 71275; 74018; 74176; 74430; 75984; 77002; 80048; 80053; 80069; 80076; 80162; 80202; 81003; 81015; 83605; 83690; 83735; 83880; 84100; 85025; 85060; 85610; 85730; 86850; 86900; 86901; 87040; 87070; 87077; 87086; 87205; 87633; 87804; 89051; 92960; 93005; 93010; 93306; 94640; 96365; 96367; A4353; C1729; C1751; C1758; C1769; G8978-GP-CJ; G8978-GP-CL; G8979-GP-CI; G8979-GP-CJ; J0131; J0278; J0282; J0456; J0692; J0696; J1160; J1650; J1940; J1956; J2060; J2185; J2250; J2704; J3010; J3370; J3475; J3480; J3490; J7050; J7070; J7620; P9016; Q9961

== ENCOUNTER 2018-10-16 10:12 | Outpatient (CLI) | payer MEDICARE, BC ==
[2018-10-16 11:51] LABS: Hemoglobin 9.5 g/dL (12.0-16.0); Mean Corpuscular HGB CONC 32.3 g/dL (32.0-36.0); Mean Corpuscular Hemoglobin 29.7 pg (27.0-31.0); Mean Platelet Volume 8.7 fL (7.4-10.4); Platelet Count 461 thou/uL (130-400); RBC Distribution Width 13.2 % (11.5-14.5); Red Blood Cell (RBC) Count 3.21 mill/uL (4.20-5.40); White Blood Cell (WBC) Count 7.3 thou/uL (4.8-10.8)
[2018-10-16 12:09] LABS: Anion Gap 10 mmol/L (10-20); BUN (Urea Nitrogen) 22 mg/dL (9.8-20.1); Calc. Creatinine Clearance 0 mL/min (70-130); Calcium 9.5 mg/dL (7.8-10.44); Carbon Dioxide 25 mmol/L (23-31); Chloride 106 mmol/L (98-107); Estimated GFR-MDRD 60; Glucose 98 mg/dL (83-110); Potassium 3.7 mmol/L (3.5-5.1); Sodium 137 mmol/L (136-145)
== END 2018-10-16 10:13 | disposition home or self-care (01) ==
LOC: LABBT 10:12
PROVIDERS: ATTEND Urology
DX: Z01.812 Encounter for preprocedural laboratory examination (principal)
CPT/HCPCS: 81001; 87086

== ENCOUNTER 2018-10-25 07:37 | Day surgery (SDC) | payer MEDICARE, BC ==
[2018-10-16 10:36] VITALS: BMI 20.6
[2018-10-25] MEDS ORDERED: Ertapenem 1 GM in Sodium Chloride 0.9% 100 ML IVPB SCH (10:15)
--- NOTE | 2018-10-25 10:35 | RAD ---
ABDOMEN 1 VIEW: Date: 10/25/18 HISTORY: Preop for ESWL and cystogram with laser lithotripsy. COMPARISON: Radiograph 10/02/18. FINDINGS: Interval removal of the left nephrostomy with placement of double-J left ureteral stent. Multiple reta cifications project over the left renal collecting system, similar. Large phleboliths in the pelvis. Left proximal ureteral stones are present. Punctate right-sided renal calculi. IMPRESSION: Multiple left-sided nephrolithiasis. POS: [facility]
[2018-10-25] MEDS ORDERED: Iothalamate Meglumine 60% 50 ML VIAL FS ONE (11:05)
[2018-10-25] MEDS ORDERED: Fentanyl 100 MCG/2 ML VIAL ONE (11:05)
[2018-10-25] MEDS ORDERED: Furosemide 20 MG/2 ML VIAL ONE (12:48)
[2018-10-25] MEDS ORDERED: Glycopyrrolate 0.2 MG/ML 5 ML SYRINGE ONE (14:32)
--- NOTE | 2018-10-25 14:43 | RAD ---
LEFT RETROGRADE UROGRAM AND STENT/STONE REMOVAL: 10/25/2018 HISTORY: Left ureteral calculus. COMPARISON: 10/25/2018 at 8:08 hours. FINDINGS: A single intraoperative fluoroscopic image of the abdomen is submitted for interpretation. As noted on the prior exam, there is a left ureteral stent in place, with left renal calculi, as well as two s eparate calculi adjacent to the proximal portion of the left ureteral stent. Calculi are unchanged i n position, compared to prior exam. Calcifications overlying the pelvis are likely related to phlebo liths. Surgical clips again overly the right upper quadrant and right hemipelvis. IMPRESSION: Left ureteral stent in place and similar in position to prior exam, with evidence of left nephrolithi asis and proximal left ureteral calculi, stable in position. Correlation with intraoperative finding s is recommended. POS: [facility]
[2018-10-25] MEDS ORDERED: PROPOFOL 200 MG/20 ML VIAL ONE (18:36)
[2018-10-25] MEDS ORDERED: PHENYLEPHRINE-NS 100 MCG/ML 10 ML SYRINGE ONE (18:36)
[2018-10-25] MEDS ORDERED: Ondansetron PF 4 MG/2 ML Vial ONE (18:36)
--- NOTE | 2018-10-26 01:07 | OP ---
DATE OF PROCEDURE: 10/25/2018 PREOPERATIVE DIAGNOSIS: Left ureteropelvic junction and renal stone. POSTOPERATIVE DIAGNOSIS: Left ureteropelvic junction and renal stone. PROCEDURES: Cystoscopy, left ureteroscopy, holmium laser lithotripsy, stone basketing, and stent placement 6 x 26 as well as extracorporeal shockwave lithotripsy. ANESTHESIA: General with endotracheal tube. FINDINGS: Adequate fragmentation of the UPJ and renal stone with extraction of the largest pieces. Adequate fragmentation of the left lower pole vessel as well as remaining fragments near the stent. COMPLICATIONS: None. DRAIN REMAININ x 26 double-J stent. BLOOD LOSS: Minimal. INDICATIONS FOR PROCEDURE: The patient is a 78-year-old female, who was originally seen in the hospital with an obstructing UPJ stone and sepsis. She got a percutaneous nephrostomy tube, which was then exchanged to an indwelling stent, which was stabilized. She was discharged with a PICC and IV antibiotics, and presented to the office to discuss definitive therapy, which we arrived upon as ureteroscopy and ESWL. DESCRIPTION OF PROCEDURE: The patient was brought into the room by Anesthesia, laid on the table in supine position. After receiving general anesthetic, the legs were placed in lithotomy position with the perineum prepped and draped in sterile fashion. Using a 21-Bolivian cystoscope and a 30-degree lens, the urethra was traversed, and the bladder was inspected. The stent was noted and grasped and brought throughout the urethral meatus. The wire was then placed through the stent and the old stent was removed leaving the wire in place. The cystoscope was put back in, and a more rigid wire was placed through the same ureter. Then, the scope was removed, and a 11/13-Bolivian and 28 cm dilating sheath was placed proximally to the outlet of the pelvis or inlet of the pelvis. Then, the cystoscope was back- loaded over the existing wire within that up to the level of the UPJ stone and that wire was removed. Then, the laser fiber was used to burst this large fragment stone of 1.3 cm and one behind it, which was about 7 mm into multiple fragments. These were then grasped and brought out through the sheath. The largest fragment was grasped and unable to get through the sheath, so at that point, the whole sheath was removed, and the remaining fragments were felt to be too difficult to continue removal via the basket, so at this point, the cystoscope was back fed over the safety wire, and a 6 x 26 double-J stent was placed. A good coil was visualized in the renal pelvis via fluoroscopy and a good coil was visualized in the bladder via cystoscopy. The scope was broken apart, bladder drained, then removed in its entirety, and the patient was repositioned to supine and transferred to the ESWL suite. She was positioned such that the lithotriptor could identify the lower pole stones, and a total of 2500 shocks at a maximum power of 4 to 5/6 and a maximum rate of 60 then 90 per minute was then delivered with good fragmentation noted, but it did need to be increased to the power of 5 in order to achieve this. Then, attention was turned to the small fragment that had already been fragmented via lithotripsy but not fully removed and 200-300 extra shocks were then saved at a power level of 4 /6 at a rate of 90 per minute to this area for complete fragmentation. Job ID: [id number]
== END 2018-10-25 18:25 | disposition home or self-care (01) ==
LOC: SDC 07:37
PROVIDERS: ATTEND Urology
PROC: 0TF48ZZ Fragmentation in Left Kidney Pelvis, Via Natural or Artificial Opening Endoscopic (ICD-10-PCS; principal; 2018-10-25)
PROC: 0T778DZ Dilation of Left Ureter with Intraluminal Device, Via Natural or Artificial Opening Endoscopic (ICD-10-PCS; 2018-10-25)
PROC: 0TF4XZZ Fragmentation in Left Kidney Pelvis, External Approach (ICD-10-PCS; 2018-10-25)
DX: N20.0 Calculus of kidney (principal); E78.00 Pure hypercholesterolemia, unspecified; F41.9 Anxiety disorder, unspecified; Z87.891 Personal history of nicotine dependence; Z79.82 Long term (current) use of aspirin; Z79.899 Other long term (current) drug therapy; Z88.0 Allergy status to penicillin
CPT/HCPCS: 50590; 52356; 74018; 74420; 82365; 88300; C1769; J1335; J1642; J1940; J2405; J2704; J3010; J3370; J7050; Q9961

== ENCOUNTER 2018-11-13 10:35 | Emergency (ER) | payer MEDICARE, BC ==
[2018-11-13] MEDS ORDERED: Adacel (T-DAP) 0.5 ML SYRINGE ONE (11:11)
[2018-11-13] MEDS ORDERED: Lidocaine 1% w/Epinephrine 1:100K 20 ML VIAL ONE (11:11)
[2018-11-13] MEDS ORDERED: Bacitracin Zinc 1 Packet ONE ×2 (11:19→11:20)
[2018-11-13] MEDS ORDERED: Bacitracin Zinc Ointment 30 gm TUBE ONE (11:19)
--- NOTE | 2018-11-13 12:04 | CT ---
CT CERVICAL SPINE NONCONTRAST: History: Fall, neck injury. FINDINGS: Vertebral body height and alignment are maintained. Cervicothoracic junction intact. Moderate osteoph ytosis throughout the vertebral bodies and facets. No acute fracture or dislocation. Disc space narro wing and posterior disc protrusions are evident at the C5-6 and C6-7 levels. IMPRESSION: Degenerative changes cervical spine. No acute osseous abnormalities are demonstrated. POS: [facility]
--- NOTE | 2018-11-13 12:34 | CT ---
CT OF HEAD NONCONTRAST: INDICATION: Posttraumatic pain, injury. FINDINGS: There is no evidence of acute intracranial hemorrhage, mass effect, midline shift, or ventriculomegal y. Mild chronic ischemic disease of the cerebral white matter is present. The calvarium is intact. No acute fluid level of the paranasal sinus. IMPRESSION: 1. No acute intracranial hemorrhage or mass effect. 2. Mild chronic ischemic disease of the cerebral white matter. POS: [facility]
--- NOTE | 2018-11-13 13:13 | RAD ---
AP PELVIS ONE VIEW: History: Fall. Pelvic injury. FINDINGS: Incomplete posterior effusion at the first sacral level. Sacral ala and pelvic rings are intact. Mild degenerative changes of the hips. Left ureteral stent partially visualized. Metallic clips over the right pelvis. Phleboliths and injection granulomata also overlie the pelvis. IMPRESSION: No acute osseous abnormalities are demonstrated. POS: [facility]
== END 2018-11-13 13:27 | disposition home or self-care (01) ==
LOC: SCSER 10:35
DX: S01.01XA Laceration without foreign body of scalp, initial encounter (principal); S30.0XXA Contusion of lower back and pelvis, initial encounter; E78.5 Hyperlipidemia, unspecified; F41.9 Anxiety disorder, unspecified; F32.9 Major depressive disorder, single episode, unspecified; Z79.899 Other long term (current) drug therapy; Z79.891 Long term (current) use of opiate analgesic; W18.30XA Fall on same level, unspecified, initial encounter
CPT/HCPCS: 12002; 70450; 72125; 72170; 90471; 90715; J2001

== ENCOUNTER 2018-12-04 11:22 | Outpatient (CLI) | payer MEDICARE, BC ==
--- NOTE | 2018-12-04 13:40 | RAD ---
KUB: History: Renal calculi, ureteral calculi. Comparison: 02-23-18 FINDINGS: There has been a definite reduction in the renal stone burden involving the left kidney. The left ure teral stent has been removed. There are several punctate calcifications seen in the region of the lef t renal pelvis and overlying the lower pole region. I do not see definitive ureteral calculi. Surgica l clips noted in the right side of the pelvis and right upper quadrant of the abdomen. IMPRESSION: Left sided renal calculi. POS: [facility]
== END 2018-12-04 11:23 | disposition home or self-care (01) ==
LOC: RAD 11:22
PROVIDERS: ATTEND Urology
DX: N20.1 Calculus of ureter (principal); N20.0 Calculus of kidney
CPT/HCPCS: 74018

== ENCOUNTER 2019-03-01 13:02 | Outpatient (CLI) | payer MEDICARE, BC ==
--- NOTE | 2019-03-01 13:54 | ULT ---
RENAL ULTRASOUND BILATERAL WITH ROACH SCALE AND DOPLER COLOR FLOW IMAGING: INDICATION: Ureteral calculus. FINDINGS: The demonstrated left renal length is 10.6 cm and the right renal length 12 cm. No suspicious right renal lesion. At the inferior aspect of the left kidney, measuring between 5 and 6 cm in diameter. This correspond s to a region of prior CT abnormality on CT exam dated 10/03/2018. The finding could relate to a resi dual post hemorrhagic focus; however, an underlying renal mass is not excluded. There is also ill-de fined increased echogenicity at the central aspect of the left kidney. No overt hydronephrosis is ev ident utilizing Doppler color flow. Bilateral ureter jets are present. The urinary bladder demonstr ates a mildly distended state. IMPRESSION: Focal region of altered echotexture at the inferior aspect of the left kidney. As an underlying mass cannot be excluded, followup with pre- and postcontrast CT of abdomen is warranted to further charac terize. POS: [facility]
== END 2019-03-01 13:03 | disposition home or self-care (01) ==
LOC: SCSULT 13:02
PROVIDERS: ATTEND Urology
DX: N20.1 Calculus of ureter (principal); R93.422 Abnormal radiologic findings on diagnostic imaging of left kidney
CPT/HCPCS: 76770

== ENCOUNTER 2019-06-14 08:28 | Outpatient (CLI) | payer MEDICARE, BC ==
[2019-06-14 09:17] LABS: PTT 35.8 SEC (22.9-36.1); Prothrombin Time 12.8 SEC (12.0-14.7)
[2019-06-14 09:23] LABS: Anion Gap 12 mmol/L (10-20); BUN (Urea Nitrogen) 21 mg/dL (9.8-20.1); Calc. Creatinine Clearance 0 mL/min (70-130); Calcium 9.4 mg/dL (7.8-10.44); Carbon Dioxide 27 mmol/L (23-31); Chloride 107 mmol/L (98-107); Estimated GFR-MDRD 58; Glucose 102 mg/dL (83-110); Potassium 3.6 mmol/L (3.5-5.1); Sodium 142 mmol/L (136-145); Uric Acid 5.1 mg/dL (2.6-6.0)
[2019-06-14 09:24] LABS: Cardiac Risk 4.5 (Less than 4.5)
[2019-06-14 09:38] LABS: Bilirubin Negative (Negative); Blood, Urine Trace (Negative); Clarity Clear (Clear); Glucose, Urine (Dipstick) Negative (Negative); Leukocyte Negative (Negative); Nitrite Negative (Negative); Protein, Urine (Dipstick) Negative (Neg-Trace); Urobilinogen 0.2 mg/dL (Less than 2)
[2019-06-14 09:59] LABS: RBC/HPF 0-3 HPF (0-3); Squamous Epithelial 0-3 HPF (0-3); WBC/HPF 0-3 HPF (0-3)
[2019-06-14 10:00] LABS: Bacteria/HPF None Seen HPF (None Seen)
--- NOTE | 2019-06-14 11:13 | CT ---
CT ABDOMEN AND PELVIS WITH AND WITHOUT IV CONTRAST: History: Left renal calculi and retroperitoneal bleed. Follow up evaluation. Comparison: Noncontrast CT abdomen 10-03-18, as well as study on 10-02-18. FINDINGS: Minimal linear scarring versus atelectasis seen at the left lateral costophrenic angle. Lung bases ar e otherwise clear. Bilateral pleural effusions and associated consolidation in each lung base has resolved compared to p rior exam. Right hepatic lobe cysts are again seen and there are a few scattered tiny subcentimeter too small to characterize hypodense lesions in each of the liver. Largest cyst in the right hepatic lobe measures 4.3 cm. The spleen, pancreas, and bilateral adrenal glands demonstrate a normal sonographic appearance. An approximately 2 mm nonobstructing calculus is again seen in the midportion of the right kidney. Pr eviously noted left renal calculi as well as the proximal left ureteral calculus are no longer visual ized, likely related to interval treatment. There is residual tiny punctate approximately 2 mm calcul us seen in the inferior pole left kidney. There is an irregular slightly heterogeneous area seen whic h appears to be a subcapsular location posterior aspect of the junction of the midportion inferior po le left kidney which is in the region of prior large subcapsular hematoma noted on the prior exam. Th is area has significantly decreased in size, previously measuring 7.5 cm x 4.1 cm. The adjacent stran ding and retroperitoneal hemorrhage extending into the pelvis has resolved. There is only minimal res idual stranding in a left perinephric location on today's exam. While there is mild mass effect on th e posterior aspect midportion and inferior pole left kidney due to the residual subcapsular hemorrhag e, the left kidney enhances symmetrically to the right kidney. There is no hydronephrosis seen bilate rally. No ureteral calculus is seen. The urinary bladder is partially distended and grossly normal in appear ance. Vascular calcifications are again seen. There is a small hiatal hernia present. A moderate amount of retained fecal material is seen througho ut the colon. Colonic diverticulosis is present. There is evidence of prior hysterectomy. There is a stable compression fracture of the superior endplate T12 vertebral body. There are stable degenerative changes in the spine. IMPRESSION: 1. Improvement and decrease size of the subcapsular hemorrhage left kidney with residual small collec tion in this region measuring 3 cm x 1.5 cm with previous measurement of 7.5 cm x 4.1 cm. Retroperito binta hemorrhage on the left has also resolved with considerable improvement in the perinephric strand ing and hemorrhage noted on prior exam. 2. Removal of the left nephrostomy tube. There is a tiny nonobstructing approximately 2 mm calculus in the inferior pole left kidney, but the previously noted left renal calculi are no longer seen. 3. Stable nonobstructing right renal calculus. 4. No evidence of a ureteral calculus, and there is no hydronephrosis or hydroureter. 5. Hepatic cysts with subcentimeter too small to characterize hypodense lesions in each lobe of the l iver. 6. Post cholecystectomy changes and evidence of hysterectomy. 7. Constipation. 8. Stable compression fracture superior endplate T12 vertebral body. 9. Resolution of bilateral pleural effusions as well as resolution of free fluid in the pelvis. POS: [facility]
== END 2019-06-14 08:29 | disposition home or self-care (01) ==
LOC: SCSCT 08:28
PROVIDERS: ATTEND Urology
DX: N20.0 Calculus of kidney (principal); I48.91 Unspecified atrial fibrillation; N39.3 Stress incontinence (female) (male); R58 Hemorrhage, not elsewhere classified; N28.89 Other specified disorders of kidney and ureter; K76.89 Other specified diseases of liver; K59.00 Constipation, unspecified; M48.54XA Collapsed vertebra, not elsewhere classified, thoracic region, initial encounter for fracture; Z90.49 Acquired absence of other specified parts of digestive tract; Z90.710 Acquired absence of both cervix and uterus
CPT/HCPCS: 74178; 80048; 80061; 81001; 83970; 84550; 85610; 85730; 87086

== ENCOUNTER 2019-08-25 11:11 | Emergency (ER) | payer MEDICARE, BC ==
[~2019-08-25 11:11] MED LIST: Iopamidol 370 76% 100 ML VIAL ONE
[2019-08-25 12:11] LABS: #Basophils 0.1 thou/uL (0.0-0.2); #Eosinphils 0.1 thou/uL (0.0-0.7); #Lymphocytes 0.8 thou/uL (1.20-3.40); #Monocytes 0.9 thou/uL (0.11-0.59); #Neutrophils 7.3 thou/uL (1.40-6.50); %Basophils 0.8 % (0.0-1.0); %Eosinophils 1.1 % (0.0-10.0); %Lymphocytes 9.2 % (21.0-51.0); %Monocytes 9.9 % (0.0-10.0); Hemoglobin 14.8 g/dL (12.0-16.0); Mean Corpuscular HGB CONC 32.5 g/dL (32.0-36.0); Mean Corpuscular Hemoglobin 29.9 pg (27.0-31.0); Mean Corpuscular Volume 92.1 fL (78.0-98.0); Mean Platelet Volume 9.3 fL (7.4-10.4); Platelet Count 272 thou/uL (130-400); RBC Distribution Width 12.7 % (11.5-14.5); Red Blood Cell (RBC) Count 4.93 mill/uL (4.20-5.40); White Blood Cell (WBC) Count 9.2 thou/uL (4.8-10.8)
[2019-08-25 12:26] LABS: Anion Gap 13 mmol/L (10-20); BUN (Urea Nitrogen) 19 mg/dL (9.8-20.1); Calc. Creatinine Clearance 0 mL/min (70-130); Calcium 9.7 mg/dL (7.8-10.44); Carbon Dioxide 27 mmol/L (23-31); Chloride 107 mmol/L (98-107); Estimated GFR-MDRD 65; Glucose 99 mg/dL (83-110); Potassium 3.9 mmol/L (3.5-5.1); Sodium 143 mmol/L (136-145)
[2019-08-25 12:39] LABS: Bilirubin Negative (Negative); Blood, Urine Large (Negative); Clarity Cloudy (Clear); Glucose, Urine (Dipstick) Negative (Negative); Leukocyte Moderate (Negative); Nitrite Negative (Negative); Protein, Urine (Dipstick) 100 mg/dL (Neg-Trace); Urobilinogen 0.2 mg/dL (Less than 2)
[2019-08-25 12:40] LABS: Bacteria/HPF 2+ HPF (None Seen); RBC/HPF Greater than 50 HPF (0-3); Squamous Epithelial 0-3 HPF (0-3); WBC/HPF Greater Than 50 HPF (0-3)
[2019-08-25] MEDS ORDERED: cefTRIAXone\\ROCEPHIN 1 GM VIAL ONE (13:07)
[2019-08-25] MEDS ORDERED: Sodium Chloride 0.9% 0 ML ONE (13:08)
--- NOTE | 2019-08-25 13:08 | CT ---
CT ABDOMEN AND PELVIS WITH IV CONTRAST: Date: 08/25/19 HISTORY: Dysuria. History of retroperitoneal hemorrhage. FINDINGS: Comparison made with exam of 06/14/19. The lung bases are clear. The patient is post cholecystectomy and hysterectomy. Cysts in the right lo be of the liver are stable. The spleen, pancreas, and adrenal glands are normal. Nonobstructing tiny calculus in the right kidney is again seen. There are tiny low density lesions in the right kidney, likely cysts. The 3.0 x 1.5 cm left subcapsular hematoma arising from the posterior cortex of the left kidney is st able. Underlying angiomyolipoma cannot be excluded, but appears stable. No new areas of hemorrhage, free air, or ascites seen. The small bowel loops are not abnormally dilated. There is sigmoid diverticulosis. There are vascular calcifications without evidence of aneurysmal dilatation of the abdominal aorta. There are degenerat bernard changes in the spine. A small hiatal hernia is again seen. There is a stable compression fracture of the superior end plate of T12 vertebral body. IMPRESSION: 1. Hepatic cysts. 2. Nonobstructing tiny right renal calculus. 3. Stable subcapsular hematoma of the left kidney. 4. Sigmoid diverticulosis. 5. Small hiatal hernia. POS: [facility]
[2019-08-25] MEDS ORDERED: Sodium Chloride 0.9% 100 ML ONE (13:11)
== END 2019-08-25 14:19 | disposition home or self-care (01) ==
LOC: SCSER 11:11
DX: N30.91 Cystitis, unspecified with hematuria (principal); E78.5 Hyperlipidemia, unspecified; E78.00 Pure hypercholesterolemia, unspecified; F41.9 Anxiety disorder, unspecified; F32.9 Major depressive disorder, single episode, unspecified; Z79.899 Other long term (current) drug therapy
CPT/HCPCS: 36415; 74177; 80048; 81003; 81015; 83605; 85025; 87040; 87086; 96365; J0696; J3490; Q9967

== ENCOUNTER 2020-08-06 16:26 | Outpatient (CLI) | payer MEDICARE, BC ==
--- NOTE | 2020-08-06 17:00 | RAD ---
Abdomen one view HISTORY: Renal stones. COMPARISON: 08/25/2019. FINDINGS: Gas and stool throughout the colon and rectum, partially obscuring the right renal outline. Renal calculi on prior CT not visualized on the current exam. Metallic clips overlie the gallbladder fossa. Degenerative changes lumbar spine and hips. Hemostasis clips and phleboliths project over the pelvis. IMPRESSION : Renal calculi not well visualized on radiograph. Status post cholecystectomy.
== END 2020-08-06 16:27 | disposition home or self-care (01) ==
LOC: SCSRAD 16:26
PROVIDERS: ATTEND Urology
DX: N20.0 Calculus of kidney (principal)
CPT/HCPCS: 74018

== ENCOUNTER 2025-08-06 12:48 | Outpatient (CLI) | payer MEDICARE | END 2025-08-06 12:49 | disposition home or self-care (01) | LOC: BICMAMMO 12:48 | PROVIDERS: ATTEND Internal Medicine | DX: Z12.31 Encounter for screening mammogram for malignant neoplasm of breast (principal); Z13.820 Encounter for screening for osteoporosis; Z78.0 Asymptomatic menopausal state; Z80.3 Family history of malignant neoplasm of breast; Z91.89 Other specified personal risk factors, not elsewhere classified; M81.0 Age-related osteoporosis without current pathological fracture | CPT/HCPCS: 77063; 77067; 77080 ==